=== PATIENT | male | born 1945 | race Caucasian/White ===

== ENCOUNTER 2018-06-18 10:12 | Outpatient (RCR) | payer MEDICARE, OTHER, SELFPAY | END 2018-07-12 | LOC: INF 06-25 10:12 | PROVIDERS: PCP Family Medicine; Visit Provider Internal Medicine Hematology & Oncology | DX: E83.111 Hemochromatosis due to repeated red blood cell transfusions (principal) | CPT/HCPCS: 99195 ==

== ENCOUNTER → 2018-06-25 07:35 | Outpatient (CLI) | payer MEDICARE, OTHER, SELFPAY ==
[2018-06-25 08:00] LABS: Absolute Eosinophil Count 0.01 k/cumm (0.0-0.7); Absolute Lymphocyte Count 0.88 k/cumm (1.2-3.4); Absolute Neutrophil Count 1.62 k/cumm (1.2-6.7); Eosinophils % 0.3; HCT 41.2 % (40.0-50.0); HGB 13.7 g/dL (13.5-17.5); Lymphocytes % 30.2; Mean Corp. HGB Concentration 33.3 g/dL (32.0-36.0); Mean Corpuscular Hemoglobin 33.2 pg (27.0-33.0); Mean Corpuscular Volume 99.8 fL (80-95); Mean Platelet Volume 8.9 fL (8.0-11.0); Monocytes % 13.7; Neutrophils % 55.8; RBC 4.13 m/cumm (4.50-6.00); RBC Distribution Width 15.8 % (11.8-14.1); White Blood Cell Count 2.91 k/cumm (4.4-10.8)
[2018-06-25 08:23] LABS: ALT 29 U/L (12-78); AST 20 U/L (15-37); Albumin 3.7 g/dL (3.4-5.0); Alkaline Phosphatase 99 U/L (46-116); Anion Gap 10.6 mmol/L (3-11); BUN 26 mg/dL (7-18); Bilirubin, Total 1.5 mg/dL (0.2-1.0); CO2 24.4 mmol/L (21.0-32.0); CREATININE 1.53 mg/dL (0.70-1.30); Calcium 8.1 mg/dL (8.5-10.1); Chloride 104 mmol/L (98-107); Estimated GFR 44.96 (mL/min/1.73m2); Ferritin 315 ng/mL (8-388); Glucose 101 mg/dL (70-100); Potassium 4.3 mmol/L (3.5-5.1); Sodium 139 mmol/L (136-145); Total Protein 7.3 g/dL (6.4-8.2)
[2018-06-25 08:44] LABS: Platelet Count 67 x1000/uL (130-400)
[2018-07-04 17:15] LABS: Specimen WB Whole Blood
== END ==
PROVIDERS: PCP Family Medicine; Visit Provider Internal Medicine Hematology & Oncology
DX: R74.0 Nonspecific elevation of levels of transaminase and lactic acid dehydrogenase [LDH] (principal); E83.111 Hemochromatosis due to repeated red blood cell transfusions; D61.9 Aplastic anemia, unspecified; D69.6 Thrombocytopenia, unspecified
CPT/HCPCS: 36415; 80053; 99195; 81256; 82728; 85025

== ENCOUNTER 2018-07-23 09:07 | Outpatient (CLI) | payer MEDICARE, OTHER, SELFPAY ==
[2018-07-23 10:00] LABS: Abs Immature Grans 0.01 k/cumm (0.0-0.09); Absolute Eosinophil Count 0.01 k/cumm (0.0-0.7); Absolute Lymphocyte Count 1.03 k/cumm (1.2-3.4); Absolute Monocyte Count 0.46 k/cumm (0.11-0.7); Absolute Neutrophil Count 1.83 k/cumm (1.2-6.7); Eosinophils % 0.3; HCT 41.4 % (40.0-50.0); HGB 13.7 g/dL (13.5-17.5); Immature Grans % 0.3; Lymphocytes % 30.8; Mean Corp. HGB Concentration 33.1 g/dL (32.0-36.0); Mean Corpuscular Hemoglobin 32.8 pg (27.0-33.0); Mean Platelet Volume 10.5 fL (8.0-11.0); Monocytes % 13.8; Neutrophils % 54.8; RBC 4.18 m/cumm (4.50-6.00); RBC Distribution Width 16.1 % (11.8-14.1); White Blood Cell Count 3.34 k/cumm (4.4-10.8)
[2018-07-23 10:20] LABS: Platelet Count 72 x1000/uL (130-400)
[2018-07-23 10:24] LABS: ALT 28 U/L (12-78); AST 19 U/L (15-37); Albumin 3.7 g/dL (3.4-5.0); Alkaline Phosphatase 98 U/L (46-116); Anion Gap 6.8 mmol/L (3-11); BUN 30 mg/dL (7-18); Bilirubin, Total 1.6 mg/dL (0.2-1.0); CO2 27.2 mmol/L (21.0-32.0); CREATININE 1.56 mg/dL (0.70-1.30); Chloride 103 mmol/L (98-107); Estimated GFR 43.97 (mL/min/1.73m2); Ferritin 205 ng/mL (8-388); Glucose 108 mg/dL (70-100); Potassium 4.7 mmol/L (3.5-5.1); Sodium 137 mmol/L (136-145); Total Protein 7.5 g/dL (6.4-8.2)
[2018-07-23 10:43] LABS: Calcium 8.5 mg/dL (8.5-10.1)
== END 2018-07-23 09:27 ==
PROVIDERS: PCP Family Medicine; Visit Provider Internal Medicine Hematology & Oncology
DX: D61.9 Aplastic anemia, unspecified (principal); E83.111 Hemochromatosis due to repeated red blood cell transfusions; D69.6 Thrombocytopenia, unspecified
CPT/HCPCS: 36415; 80053; 82728; 85025

== ENCOUNTER 2018-08-23 08:21 | Outpatient (CLI) | payer MEDICARE, OTHER, SELFPAY ==
[2018-08-23 08:40] LABS: Absolute Eosinophil Count 0.01 k/cumm (0.0-0.7); Absolute Lymphocyte Count 0.92 k/cumm (1.2-3.4); Absolute Monocyte Count 0.38 k/cumm (0.11-0.7); Absolute Neutrophil Count 1.64 k/cumm (1.2-6.7); Eosinophils % 0.3; HCT 40.8 % (40.0-50.0); HGB 13.7 g/dL (13.5-17.5); Lymphocytes % 31.2; Mean Corp. HGB Concentration 33.6 g/dL (32.0-36.0); Mean Corpuscular Hemoglobin 33.2 pg (27.0-33.0); Mean Corpuscular Volume 98.8 fL (80-95); Mean Platelet Volume 10.4 fL (8.0-11.0); Monocytes % 12.9; Neutrophils % 55.6; RBC 4.13 m/cumm (4.50-6.00); RBC Distribution Width 16.3 % (11.8-14.1); White Blood Cell Count 2.95 k/cumm (4.4-10.8)
[2018-08-23 08:59] LABS: Diff Comment PLT Morph Reviewed; Platelet Count 64 x1000/uL (130-400); RBC Morphology Normal
[2018-08-23 09:14] LABS: ALT 32 U/L (12-78); AST 22 U/L (15-37); Albumin 3.5 g/dL (3.4-5.0); Alkaline Phosphatase 96 U/L (46-116); Anion Gap 8.1 mmol/L (3-11); BUN 23 mg/dL (7-18); Bilirubin, Total 1.7 mg/dL (0.2-1.0); CO2 26.9 mmol/L (21.0-32.0); CREATININE 1.39 mg/dL (0.70-1.30); Calcium 8.1 mg/dL (8.5-10.1); Chloride 106 mmol/L (98-107); Estimated GFR 50.23 (mL/min/1.73m2); Ferritin 168 ng/mL (8-388); Glucose 97 mg/dL (70-100); Potassium 3.9 mmol/L (3.5-5.1); Sodium 141 mmol/L (136-145)
== END 2018-08-23 08:41 ==
PROVIDERS: PCP Family Medicine; Visit Provider Internal Medicine Hematology & Oncology
DX: D61.9 Aplastic anemia, unspecified (principal); D69.6 Thrombocytopenia, unspecified; E83.111 Hemochromatosis due to repeated red blood cell transfusions
CPT/HCPCS: 36415; 80053; 82728; 85025

== ENCOUNTER 2018-09-17 07:49 | Outpatient (CLI) | payer MEDICARE, OTHER, SELFPAY ==
[2018-09-17 08:17] LABS: Absolute Eosinophil Count 0.01 k/cumm (0.0-0.7); Absolute Lymphocyte Count 0.94 k/cumm (1.2-3.4); Absolute Monocyte Count 0.44 k/cumm (0.11-0.7); Absolute Neutrophil Count 1.53 k/cumm (1.2-6.7); Eosinophils % 0.3; HCT 44.6 % (40.0-50.0); HGB 14.6 g/dL (13.5-17.5); Lymphocytes % 32.2; Mean Corp. HGB Concentration 32.7 g/dL (32.0-36.0); Mean Corpuscular Hemoglobin 31.4 pg (27.0-33.0); Mean Corpuscular Volume 95.9 fL (80-95); Mean Platelet Volume 10.9 fL (8.0-11.0); Monocytes % 15.1; Neutrophils % 52.4; RBC 4.65 m/cumm (4.50-6.00); RBC Distribution Width 17.1 % (11.8-14.1); White Blood Cell Count 2.92 k/cumm (4.4-10.8)
[2018-09-17 08:32] LABS: Anisocytosis 1+; Basophilic Stippling Present; Diff Comment RBC Morph Reviewed; Platelet Count 60 x1000/uL (130-400); Polychromasia Present
[2018-09-17 08:36] LABS: ALT 37 U/L (12-78); AST 24 U/L (15-37); Albumin 3.8 g/dL (3.4-5.0); Alkaline Phosphatase 90 U/L (46-116); Anion Gap 6.5 mmol/L (3-11); BUN 26 mg/dL (7-18); Bilirubin, Total 1.8 mg/dL (0.2-1.0); CO2 29.5 mmol/L (21.0-32.0); CREATININE 1.52 mg/dL (0.70-1.30); Calcium 8.8 mg/dL (8.5-10.1); Chloride 103 mmol/L (98-107); Estimated GFR 45.31 (mL/min/1.73m2); Ferritin 167 ng/mL (8-388); Glucose 94 mg/dL (70-100); Potassium 4.4 mmol/L (3.5-5.1); Sodium 139 mmol/L (136-145); Total Protein 7.3 g/dL (6.4-8.2)
== END 2018-09-17 08:09 ==
PROVIDERS: PCP Family Medicine; Visit Provider Internal Medicine Hematology & Oncology
DX: D61.9 Aplastic anemia, unspecified (principal); E83.111 Hemochromatosis due to repeated red blood cell transfusions; D69.6 Thrombocytopenia, unspecified
CPT/HCPCS: 36415; 80053; 82728; 85025

== ENCOUNTER 2018-10-09 07:41 | Outpatient (CLI) | payer MEDICARE, OTHER, SELFPAY ==
[2018-10-09 08:02] LABS: Abs Immature Grans 0.01 k/cumm (0.0-0.09); Absolute Lymphocyte Count 0.97 k/cumm (1.2-3.4); Absolute Monocyte Count 0.45 k/cumm (0.11-0.7); Absolute Neutrophil Count 1.55 k/cumm (1.2-6.7); HCT 42.5 % (40.0-50.0); HGB 14.2 g/dL (13.5-17.5); Immature Grans % 0.3; Lymphocytes % 32.6; Mean Corp. HGB Concentration 33.4 g/dL (32.0-36.0); Mean Corpuscular Hemoglobin 32.3 pg (27.0-33.0); Mean Corpuscular Volume 96.6 fL (80-95); Mean Platelet Volume 9.7 fL (8.0-11.0); Monocytes % 15.1; RBC Distribution Width 17.6 % (11.8-14.1); White Blood Cell Count 2.98 k/cumm (4.4-10.8)
[2018-10-09 08:11] LABS: Platelet Count 68 x1000/uL (130-400)
[2018-10-09 08:24] LABS: Diff Comment Diff Reviewed; RBC Morphology Normal
[2018-10-09 08:31] LABS: ALT 31 U/L (12-78); AST 21 U/L (15-37); Albumin 3.7 g/dL (3.4-5.0); Alkaline Phosphatase 94 U/L (46-116); Anion Gap 8.6 mmol/L (3-11); BUN 32 mg/dL (7-18); Bilirubin, Total 1.7 mg/dL (0.2-1.0); CO2 28.4 mmol/L (21.0-32.0); CREATININE 1.51 mg/dL (0.70-1.30); Calcium 8.9 mg/dL (8.5-10.1); Chloride 104 mmol/L (98-107); Estimated GFR 45.65 (mL/min/1.73m2); Ferritin 148 ng/mL (8-388); Glucose 118 mg/dL (70-100); Potassium 4.2 mmol/L (3.5-5.1); Sodium 141 mmol/L (136-145); Total Protein 7.5 g/dL (6.4-8.2)
== END 2018-10-09 08:01 ==
PROVIDERS: PCP Family Medicine; Visit Provider Internal Medicine Hematology & Oncology
DX: D61.9 Aplastic anemia, unspecified (principal); D69.6 Thrombocytopenia, unspecified; E83.111 Hemochromatosis due to repeated red blood cell transfusions
CPT/HCPCS: 36415; 80053; 82728; 85025

== ENCOUNTER 2018-11-19 08:09 | Outpatient (CLI) | payer MEDICARE, OTHER, SELFPAY ==
[2018-11-19 08:35] LABS: Abs Immature Grans 0.01 k/cumm (0.0-0.09); Absolute Lymphocyte Count 1.02 k/cumm (1.2-3.4); Absolute Neutrophil Count 1.17 k/cumm (1.2-6.7); HCT 40.1 % (40.0-50.0); HGB 13.3 g/dL (13.5-17.5); Immature Grans % 0.4; Lymphocytes % 39.2; Mean Corp. HGB Concentration 33.2 g/dL (32.0-36.0); Mean Corpuscular Hemoglobin 32.1 pg (27.0-33.0); Mean Corpuscular Volume 96.9 fL (80-95); Mean Platelet Volume 10.4 fL (8.0-11.0); Monocytes % 15.4; RBC 4.14 m/cumm (4.50-6.00); RBC Distribution Width 18.4 % (11.8-14.1)
[2018-11-19 08:48] LABS: Anisocytosis 2+; Diff Comment Diff Reviewed
[2018-11-19 08:49] LABS: Platelet Count 80 x1000/uL (130-400)
[2018-11-19 08:52] LABS: ALT 28 U/L (12-78); AST 19 U/L (15-37); Albumin 3.6 g/dL (3.4-5.0); Alkaline Phosphatase 91 U/L (46-116); BUN 30 mg/dL (7-18); Bilirubin, Total 1.7 mg/dL (0.2-1.0); CREATININE 1.42 mg/dL (0.70-1.30); Calcium 8.5 mg/dL (8.5-10.1); Chloride 104 mmol/L (98-107); Estimated GFR 49.01 (mL/min/1.73m2); Glucose 103 mg/dL (70-100); Potassium 3.9 mmol/L (3.5-5.1); Sodium 139 mmol/L (136-145); Total Protein 7.3 g/dL (6.4-8.2)
== END 2018-11-19 08:29 ==
PROVIDERS: PCP Family Medicine; Visit Provider Internal Medicine Hematology & Oncology
DX: D61.9 Aplastic anemia, unspecified (principal); E83.111 Hemochromatosis due to repeated red blood cell transfusions; D69.6 Thrombocytopenia, unspecified
CPT/HCPCS: 36415; 80053; 85025

== ENCOUNTER 2019-01-07 13:19 | Outpatient (CLI) | payer MEDICARE, OTHER, SELFPAY ==
[2019-01-07 13:39] LABS: Abs Immature Grans 0.01 k/cumm (0.0-0.09); Absolute Eosinophil Count 0.01 k/cumm (0.0-0.7); Absolute Lymphocyte Count 0.86 k/cumm (1.2-3.4); Absolute Monocyte Count 0.23 k/cumm (0.11-0.7); Absolute Neutrophil Count 1.85 k/cumm (1.2-6.7); Eosinophils % 0.3; HCT 41.6 % (40.0-50.0); HGB 13.5 g/dL (13.5-17.5); Immature Grans % 0.3; Lymphocytes % 29.1; Mean Corp. HGB Concentration 32.5 g/dL (32.0-36.0); Mean Corpuscular Hemoglobin 31.1 pg (27.0-33.0); Mean Corpuscular Volume 95.9 fL (80-95); Mean Platelet Volume 10.4 fL (8.0-11.0); Monocytes % 7.8; Neutrophils % 62.5; Platelet Count 105 x1000/uL (130-400); RBC 4.34 m/cumm (4.50-6.00); White Blood Cell Count 2.96 k/cumm (4.4-10.8)
[2019-01-07 14:09] LABS: ALT 29 U/L (12-78); AST 24 U/L (15-37); Albumin 3.6 g/dL (3.4-5.0); Alkaline Phosphatase 109 U/L (46-116); Anion Gap 7.9 mmol/L (3-11); BUN 27 mg/dL (7-18); Bilirubin, Total 1.4 mg/dL (0.2-1.0); CO2 28.1 mmol/L (21.0-32.0); CREATININE 1.45 mg/dL (0.70-1.30); Calcium 8.6 mg/dL (8.5-10.1); Chloride 103 mmol/L (98-107); Estimated GFR 47.84 (mL/min/1.73m2); Glucose 145 mg/dL (70-100); Potassium 4.3 mmol/L (3.5-5.1); Sodium 139 mmol/L (136-145); Total Protein 7.9 g/dL (6.4-8.2)
[2019-01-07 14:32] LABS: Ferritin 157 ng/mL (8-388)
== END 2019-01-07 13:39 ==
PROVIDERS: PCP Family Medicine; Visit Provider Internal Medicine Hematology & Oncology
DX: D61.9 Aplastic anemia, unspecified (principal); D69.6 Thrombocytopenia, unspecified; E83.111 Hemochromatosis due to repeated red blood cell transfusions
CPT/HCPCS: 36415; 80053; 82728; 85025

== ENCOUNTER 2019-02-03 11:04 | Outpatient (CLI) | payer MEDICARE, OTHER, SELFPAY | END 2019-02-03 11:24 | PROVIDERS: PCP Family Medicine; Visit Provider Internal Medicine Interventional Cardiology | DX: R07.9 Chest pain, unspecified (principal); R94.39 Abnormal result of other cardiovascular function study | CPT/HCPCS: 99214; 93005; 93010 ==

== ENCOUNTER 2019-02-18 08:15 | Outpatient (CLI) | payer MEDICARE, OTHER, SELFPAY ==
[2019-02-18 08:45] LABS: Absolute Lymphocyte Count 1.01 k/cumm (1.2-3.4); Absolute Monocyte Count 0.41 k/cumm (0.11-0.7); Absolute Neutrophil Count 1.42 k/cumm (1.2-6.7); HCT 43.1 % (40.0-50.0); HGB 14.1 g/dL (13.5-17.5); Lymphocytes % 35.6; Mean Corp. HGB Concentration 32.7 g/dL (32.0-36.0); Mean Corpuscular Hemoglobin 31.3 pg (27.0-33.0); Mean Corpuscular Volume 95.6 fL (80-95); Mean Platelet Volume 10.6 fL (8.0-11.0); Monocytes % 14.4; Platelet Count 101 x1000/uL (130-400); RBC 4.51 m/cumm (4.50-6.00); RBC Distribution Width 18.9 % (11.8-14.1); White Blood Cell Count 2.84 k/cumm (4.4-10.8)
[2019-02-18 08:58] LABS: ALT 25 U/L (12-78); AST 20 U/L (15-37); Albumin 3.7 g/dL (3.4-5.0); Alkaline Phosphatase 102 U/L (46-116); Anion Gap 7.3 mmol/L (3-11); BUN 28 mg/dL (7-18); Bilirubin, Total 1.7 mg/dL (0.2-1.0); CO2 27.7 mmol/L (21.0-32.0); Calcium 8.4 mg/dL (8.5-10.1); Chloride 102 mmol/L (98-107); Glucose 104 mg/dL (70-100); Potassium 4.2 mmol/L (3.5-5.1); Sodium 137 mmol/L (136-145); Total Protein 7.5 g/dL (6.4-8.2)
== END 2019-02-18 08:35 ==
PROVIDERS: PCP Family Medicine; Visit Provider Internal Medicine Hematology & Oncology
DX: D61.9 Aplastic anemia, unspecified (principal); D69.6 Thrombocytopenia, unspecified
CPT/HCPCS: 36415; 80053; 85025

== ENCOUNTER 2019-04-08 08:48 | Outpatient (CLI) | payer MEDICARE, OTHER, SELFPAY ==
[2019-04-08 09:15] LABS: Absolute Eosinophil Count 0.01 k/cumm (0.0-0.7); Absolute Lymphocyte Count 0.81 k/cumm (1.2-3.4); Absolute Monocyte Count 0.48 k/cumm (0.11-0.7); Absolute Neutrophil Count 1.54 k/cumm (1.2-6.7); Eosinophils % 0.4; HCT 41.6 % (40.0-50.0); HGB 13.7 g/dL (13.5-17.5); Lymphocytes % 28.5; Mean Corp. HGB Concentration 32.9 g/dL (32.0-36.0); Mean Corpuscular Hemoglobin 31.6 pg (27.0-33.0); Mean Corpuscular Volume 95.9 fL (80-95); Mean Platelet Volume 10.8 fL (8.0-11.0); Monocytes % 16.9; Neutrophils % 54.2; RBC 4.34 m/cumm (4.50-6.00); RBC Distribution Width 18.7 % (11.8-14.1); White Blood Cell Count 2.84 k/cumm (4.4-10.8)
[2019-04-08 09:32] LABS: ALT 28 U/L (12-78); AST 22 U/L (15-37); Albumin 3.5 g/dL (3.4-5.0); Alkaline Phosphatase 95 U/L (46-116); Anion Gap 8.1 mmol/L (3-11); BUN 31 mg/dL (7-18); Bilirubin, Total 1.8 mg/dL (0.2-1.0); CO2 26.9 mmol/L (21.0-32.0); CREATININE 1.29 mg/dL (0.70-1.30); Calcium 8.4 mg/dL (8.5-10.1); Chloride 103 mmol/L (98-107); Estimated GFR 54.75 (mL/min/1.73m2); Glucose 90 mg/dL (70-100); Potassium 4.3 mmol/L (3.5-5.1); Sodium 138 mmol/L (136-145); Total Protein 7.2 g/dL (6.4-8.2)
[2019-04-08 09:36] LABS: Anisocytosis 2+; Basophilic Stippling Present; Diff Comment RBC Morph Reviewed; Platelet Count 83 x1000/uL (130-400)
[2019-04-08 09:37] LABS: Poikilocytes 1+; Polychromasia Present
== END 2019-04-08 09:08 ==
PROVIDERS: PCP Family Medicine; Visit Provider Internal Medicine Hematology & Oncology
DX: D61.9 Aplastic anemia, unspecified (principal); D61.89 Other specified aplastic anemias and other bone marrow failure syndromes; D69.6 Thrombocytopenia, unspecified
CPT/HCPCS: 80053; 85025

== ENCOUNTER 2019-05-12 08:39 | Outpatient (CLI) | payer MEDICARE, OTHER, SELFPAY | END 2019-05-12 08:59 | PROVIDERS: PCP Family Medicine; Visit Provider Internal Medicine Interventional Cardiology | DX: R07.9 Chest pain, unspecified (principal); D61.9 Aplastic anemia, unspecified; R94.39 Abnormal result of other cardiovascular function study | CPT/HCPCS: 99214; 93005; 93010; 99213 ==

== ENCOUNTER 2019-06-10 08:26 | Outpatient (CLI) | payer MEDICARE, OTHER, SELFPAY ==
[2019-06-10 08:42] LABS: Abs Immature Grans 0.01 k/cumm (0.0-0.09); HCT 41.5 % (40.0-50.0); HGB 13.4 g/dL (13.5-17.5); Mean Corp. HGB Concentration 32.3 g/dL (32.0-36.0); Mean Corpuscular Hemoglobin 30.2 pg (27.0-33.0); Mean Corpuscular Volume 93.5 fL (80-95); Mean Platelet Volume 11.2 fL (8.0-11.0); RBC 4.44 m/cumm (4.50-6.00); RBC Distribution Width 19.6 % (11.8-14.1); White Blood Cell Count 2.51 k/cumm (4.4-10.8)
[2019-06-10 08:59] LABS: ALT 37 U/L (12-78); AST 20 U/L (15-37); Absolute Basophil Count 0.05 k/cumm (0.0-0.2); Absolute Eosinophil Count 0.15 k/cumm (0.0-0.7); Absolute Lymphocyte Count 0.65 k/cumm (1.2-3.4); Absolute Monocyte Count 0.35 k/cumm (0.11-0.7); Absolute Neutrophil Count 1.31 k/cumm (1.2-6.7); Albumin 3.5 g/dL (3.4-5.0); Alkaline Phosphatase 86 U/L (46-116); Anion Gap 5.2 mmol/L (3-11); BUN 32 mg/dL (7-18); CO2 28.8 mmol/L (21.0-32.0); CREATININE 1.39 mg/dL (0.70-1.30); Calcium 8.6 mg/dL (8.5-10.1); Chloride 106 mmol/L (98-107); Estimated GFR 50.09 (mL/min/1.73m2); Glucose 92 mg/dL (70-100); Platelet Count 90 x1000/uL (130-400); Potassium 4.1 mmol/L (3.5-5.1); Sodium 140 mmol/L (136-145); Total Protein 7.2 g/dL (6.4-8.2)
[2019-06-10 09:00] LABS: Anisocytosis 2+; Basophilic Stippling Present; Diff Comment Manual Differential; Polychromasia Present
[2019-06-10 09:01] LABS: Bilirubin, Total 2.1 mg/dL (0.2-1.0)
== END 2019-06-10 08:46 ==
PROVIDERS: PCP Family Medicine; Visit Provider Internal Medicine Hematology & Oncology
DX: D61.89 Other specified aplastic anemias and other bone marrow failure syndromes (principal); D61.9 Aplastic anemia, unspecified; D69.6 Thrombocytopenia, unspecified
CPT/HCPCS: 36415; 80053; 85025

== ENCOUNTER 2019-07-31 07:54 | Outpatient (CLI) | payer MEDICARE, OTHER, SELFPAY ==
[2019-07-31 08:11] LABS: HCT 41.4 % (40.0-50.0); HGB 13.3 g/dL (13.5-17.5); Mean Corp. HGB Concentration 32.1 g/dL (32.0-36.0); Mean Corpuscular Hemoglobin 30.3 pg (27.0-33.0); Mean Corpuscular Volume 94.3 fL (80-95); Mean Platelet Volume 10.3 fL (8.0-11.0); RBC 4.39 m/cumm (4.50-6.00); White Blood Cell Count 2.45 k/cumm (4.4-10.8)
[2019-07-31 08:24] LABS: ALT 25 U/L (16-63); AST 22 U/L (15-37); Albumin 3.6 g/dL (3.4-5.0); Alkaline Phosphatase 87 U/L (46-116); Anion Gap 8.7 mmol/L (3-11); BUN 29 mg/dL (7-18); Bilirubin, Total 2.3 mg/dL (0.2-1.0); CO2 27.3 mmol/L (21.0-32.0); CREATININE 1.39 mg/dL (0.70-1.30); Calcium 8.4 mg/dL (8.5-10.1); Chloride 105 mmol/L (98-107); Estimated GFR 50.09 (mL/min/1.73m2); Glucose 66 mg/dL (70-100); Sodium 141 mmol/L (136-145); Total Protein 7.3 g/dL (6.4-8.2)
[2019-07-31 08:33] LABS: Absolute Monocyte Count 0.34 k/cumm (0.11-0.7); Absolute Neutrophil Count 1.05 k/cumm (1.2-6.7); Atypical Lymphocytes % 3; Platelet Count 98 x1000/uL (130-400)
[2019-07-31 08:34] LABS: Anisocytosis 2+; Diff Comment Manual Differential
== END 2019-07-31 08:14 ==
PROVIDERS: PCP Family Medicine; Visit Provider Internal Medicine Hematology & Oncology
DX: D61.9 Aplastic anemia, unspecified (principal); D69.6 Thrombocytopenia, unspecified
CPT/HCPCS: 36415; 80053; 85025

== ENCOUNTER 2019-10-07 08:46 | Outpatient (CLI) | payer MEDICARE, OTHER, SELFPAY ==
[2019-10-07 09:02] LABS: Abs Immature Grans 0.02 k/cumm (0.0-0.09); Absolute Basophil Count 0.01 k/cumm (0.0-0.2); Absolute Lymphocyte Count 0.88 k/cumm (1.2-3.4); Absolute Monocyte Count 0.59 k/cumm (0.11-0.7); Basophils % 0.5; HCT 37.2 % (40.0-50.0); HGB 12.1 g/dL (13.5-17.5); Immature Grans % 0.9; Mean Corp. HGB Concentration 32.5 g/dL (32.0-36.0); Mean Corpuscular Hemoglobin 29.8 pg (27.0-33.0); Mean Corpuscular Volume 91.6 fL (80-95); Mean Platelet Volume 11.7 fL (8.0-11.0); Monocytes % 26.8; Neutrophils % 31.8; Platelet Count 132 x1000/uL (130-400); RBC 4.06 m/cumm (4.50-6.00)
[2019-10-07 09:17] LABS: ALT 18 U/L (16-63); AST 14 U/L (15-37); Albumin 3.6 g/dL (3.4-5.0); Alkaline Phosphatase 83 U/L (46-116); Anion Gap 7.7 mmol/L (3-11); BUN 32 mg/dL (7-18); Bilirubin, Total 1.7 mg/dL (0.2-1.0); CO2 28.3 mmol/L (21.0-32.0); CREATININE 1.37 mg/dL (0.70-1.30); Calcium 8.6 mg/dL (8.5-10.1); Chloride 105 mmol/L (98-107); Estimated GFR 50.93 (mL/min/1.73m2); Glucose 98 mg/dL (74-106); Potassium 4.5 mmol/L (3.5-5.1); Sodium 141 mmol/L (136-145); Total Protein 7.2 g/dL (6.4-8.2)
[2019-10-07 09:25] LABS: Diff Comment RBC Morph Reviewed
[2019-10-07 09:26] LABS: Anisocytosis 2+; Macrocytosis 1+; Microcytosis 1+; Polychromasia Present
== END 2019-10-07 09:06 ==
PROVIDERS: PCP Family Medicine; Visit Provider Internal Medicine Hematology & Oncology
DX: D61.9 Aplastic anemia, unspecified (principal); D61.89 Other specified aplastic anemias and other bone marrow failure syndromes; D69.6 Thrombocytopenia, unspecified
CPT/HCPCS: 36415; 80053; 85025

== ENCOUNTER 2019-10-27 10:21 | Outpatient (CLI) | payer MEDICARE, OTHER, SELFPAY ==
[2019-10-27 10:48] LABS: Abs Immature Grans 0.01 k/cumm (0.0-0.09); Absolute Basophil Count 0.01 k/cumm (0.0-0.2); Absolute Lymphocyte Count 0.86 k/cumm (1.2-3.4); Absolute Monocyte Count 0.58 k/cumm (0.11-0.7); Absolute Neutrophil Count 0.64 k/cumm (1.2-6.7); Basophils % 0.5; HCT 34.8 % (40.0-50.0); HGB 11.1 g/dL (13.5-17.5); Immature Grans % 0.5; Mean Corp. HGB Concentration 31.9 g/dL (32.0-36.0); Mean Corpuscular Hemoglobin 28.5 pg (27.0-33.0); Mean Corpuscular Volume 89.5 fL (80-95); Monocytes % 27.6; Neutrophils % 30.4; Platelet Count 112 x1000/uL (130-400); RBC 3.89 m/cumm (4.50-6.00); RBC Distribution Width 23.1 % (11.8-14.1)
[2019-10-27 11:03] LABS: Anisocytosis 3+; Diff Comment Agrees w/ Instrument; Polychromasia Present
[2019-10-27 11:04] LABS: Poikilocytes 2+
[2019-10-27 12:10] LABS: ALT 18 U/L (16-63); AST 15 U/L (15-37); Albumin 3.8 g/dL (3.4-5.0); Alkaline Phosphatase 79 U/L (46-116); Anion Gap 8.3 mmol/L (3-11); BUN 34 mg/dL (7-18); Bilirubin, Total 1.9 mg/dL (0.2-1.0); CO2 26.7 mmol/L (21.0-32.0); CREATININE 1.69 mg/dL (0.70-1.30); Calcium 8.3 mg/dL (8.5-10.1); Chloride 105 mmol/L (98-107); Estimated GFR 39.98 (mL/min/1.73m2); Glucose 97 mg/dL (74-106); Potassium 4.5 mmol/L (3.5-5.1); Sodium 140 mmol/L (136-145)
== END 2019-10-27 10:41 ==
PROVIDERS: PCP Family Medicine; Visit Provider Internal Medicine Hematology & Oncology
DX: D61.89 Other specified aplastic anemias and other bone marrow failure syndromes (principal); D61.9 Aplastic anemia, unspecified; D69.6 Thrombocytopenia, unspecified
CPT/HCPCS: 36415; 80053; 85025

== ENCOUNTER 2019-10-27 13:01 | Emergency (ER) | payer MEDICARE, OTHER, SELFPAY ==
[2019-10-27] VITALS (38 sets, daily range): BP systolic 117–159; BP diastolic 57–94; PULSE 68–124; RESP 11–41; TEMP 36.6; O2SAT 98–100
--- NOTE | 2019-10-27 13:05 | DI.RAD_ITS ---
EXAM: XR PORTABLE CHEST AP INDICATION: chest pain. COMPARISON: CHEST ABD PELVIS WITH CONTRAST from 09/28/2015 TECHNIQUE: 2D digital imaging was performed. FINDINGS: The heart is mildly enlarged and the aorta is tortuous. The lungs appear clear. No infiltrate, effu blaire or pulmonary edema is seen. IMPRESSION: No acute abnormality.
--- NOTE | 2019-10-27 13:08 | ED.GENADUL_ITS ---
Discharge Plan Discharge Details Chief Complaint: Chest Pain Primary Care Provider: Lizbeth Li V ED Provider: Wendy Andujar Home Meds and New Rx's Prescriptions: No Action Promacta 75 mg tablet 150 mg PO DAILY RF: 0 Discharge Data Discharge Date/Time-TO BE ENTERED AT DEPARTURE: 10/27/19 15:00 Medical Decision Making Duke Fink is a 74-year-old man with a history of aplastic anemia who presented to the emergency department with 45 minutes of unrelenting chest pressure, exertional in nature. On exam patient is diaphoretic and appears uncomfortable. Tachycardic rate, otherwise been cardiopulmonary exam. No abdominal tenderness to palpation. No posterior calf tenderness to palpation, no lower extremity edema. Concern for ACS. Doubt PE, acute aortic process. Exam/history is not consistent with acute emergent intra-abdominal process, sepsis. EKG shows ST elevation in aVR, significant diffuse ST depression not present on prior. Plan for 324 mg aspirin, chest x-ray, screening labs, telemetry, sublingual nitroglycerin, IV fluid. Transfer center at [facility] contacted immediately upon EKG review. 13:08: Transfer center contacted, awaiting callback Patient reporting complete resolution of pain after sublingual nitroglycerin x1 and nitroglycerin drip initiated. 13:27 [facility] [place], discussed patient presentation and results (including platelets 112, hemoglobin 11.1, creatinine 1.67 history of aplastic anemia) with Dr. Jones of cardiology who request aspirin and heparin, hold lytics/additional antiplatelet agents for now 13:28 repeat EKG shows significant improvement from prior, continued mild diffuse ST depression 1:31 awaiting callback with final acceptance, checking with [employer] for flight 1:[address] 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 Patient continues to be pain-free in the emergency department. DHART present in the emergency department. Patient continues to be pain-free. Patient left emergency department with paramedics for transfer without issue. Clinical impression: Exertional chest pain, suspect NSTEMI Disposition: Transfer to [facility] Medical Records Medical records reviewed: Yes I reviewed the patient's medical records. Imaging Data Radiologic Study: Attestation: I personally reviewed and interpreted this imaging study as follows: Radiologist's impression: EXAM: XR PORTABLE CHEST AP INDICATION: chest pain. COMPARISON: CHEST ABD PELVIS WITH CONTRAST from 09/28/2015 TECHNIQUE: 2D digital imaging was performed. FINDINGS: The heart is mildly enlarged and the aorta is tortuous. The lungs appear clear. No infiltrate, effusion or pulmonary edema is seen. IMPRESSION: No acute abnormality. Lab Data Lab results reviewed: Yes I reviewed the patient's lab results. Labs: Laboratory Tests Range/Units 10/27/19 10/27/19 10/27/19 13:05 13:05 13:05 WBC (4.4-10.8) k/cumm 2.49 L RBC (4.50-6.00) m/cumm 4.12 L Hgb (13.5-17.5) g/dL 11.9 L Hct (40.0-50.0) % 36.7 L MCV (80-95) fL 89.1 MCH (27.0-33.0) pg 28.9 MCHC (32.0-36.0) g/dL 32.4 RDW (11.8-14.1) % 23.2 H Plt Count (130-400) x1000/uL 124 L MPV (8.0-11.0) fL Immature Gran % 0.8 Neutrophils % 27.3 Lymphocytes % 52.6 Monocytes % 18.9 Eosinophils % 0.0 Basophils % 0.4 Absolute Neutrophils (1.2-6.7) k/cumm 0.68 L Absolute Lymphocytes (1.2-3.4) k/cumm 1.31 Absolute Monocytes (0.11-0.7) k/cumm 0.47 Absolute Eosinophils (0.0-0.7) k/cumm 0.00 Absolute Basophils (0.0-0.2) k/cumm 0.01 Differential Comment Agrees w/ instrument RBC Morphology See below Polychromasia Present Poikilocytosis 2+ Anisocytosis 2+ Sodium (136-145) mmol/L 139 Potassium (3.5-5.1) mmol/L 3.6 Chloride (98-107) mmol/L 103 Carbon Dioxide (21.0-32.0) mmol/L 25.3 Anion Gap (3-11) mmol/L 10.7 BUN (7-18) mg/dL 34 H Creatinine (0.70-1.30) mg/dL 1.59 H Estimated GFR/1.73 m2 (mL/min/1.73m2) 42.89 Glucose (74-106) mg/dL 152 H Calcium (8.5-10.1) mg/dL 8.9 Total Bilirubin (0.2-1.0) mg/dL 2.0 H AST (15-37) U/L 17 ALT (16-63) U/L 18 Alkaline Phosphatase (46-116) U/L 89 Troponin I (<0.06) ng/Ml < 0.05 NT-Pro-B Natriuret Pep (<300) pg/mL 358 Total Protein (6.4-8.2) g/dL 8.0 Albumin (3.4-5.0) g/dL 4.0 ECG Data Attestation: I personally reviewed and interpreted this ECG (s) as follows: Interpretation: EKG 13:05 shows sinus tachycardia 112, normal axis, ST elevation in aVR, diffuse ST depression not present on prior, no STEMI EKG 1328 shows sinus rhythm at 78, normal axis, mild diffuse ST depression, [address] elevation in aVR, significant improvement from prior, no STEMI HPI General Mode of arrival: wheelchair . Date/Time Provider Initiated Documentation: 10/27/19 13:05 . Limitations to Documentation: no limitations . Information obtained by: patient, family, RN notes reviewed and old records reviewed . HPI Narrative: Duke Fink is a 74-year-old man with a history of aplastic anemia presenting to the emergency department with chest pain. Patient reports that over the past 2 years he has had intermittent exertional chest pain or shortness of breath, which he has attributed to his intermittent low hemoglobin levels secondary to aplastic anemia. Patient has seen cardiology for this, and underwent a stress test in 2018 that was negative. He has not had a cardiac catheterization. Reports that over the past few weeks he has been having increasing chest pressure that is worse with exertion but has been relieved by rest and belching. Patient reports that he developed chest pressure while walking in his house 45 minutes prior to arrival that has now resolved. He rates this pain as severe, but states he is currently pain-free. He denies any other pain, fever, vomiting, diarrhea, shortness of breath, numbness, focal weakness, rash. Patient reports that he has his labs tested regularly, and did have lab work done today. Per record review platelets were 112, hemoglobin 11.1, creatinine 1.69. Patient states that these levels are high for him, and he has had very low hemoglobin and platelets in the past with platelets as low as 2. Related Data Home Medications Medication Instructions Recorded Confirmed eltrombopag 75 mg tablet 150 mg PO DAILY tab 02/03/19 10/27/19 Allergies Allergy/AdvReac Type Severity Reaction Status Date / Time pentamidine isethionate Allergy Severe Verified 10/27/19 13:08 cefadroxil [Cefadroxil] Allergy Unknown Unverified 10/27/19 13:08 General Stated Complaint: Chest Pain SOCRATES: 2 Review of Systems Narrative: Constitutional: denies fevers Eyes: denies eye pain ENT: denies ear pain, dental pain, sore throat Cardiovascular: denies edema, reports chest pain Respiratory: denies SOB, cough GI: denies abdominal pain, vomiting, diarrhea : denies flank pain MSK: denies back pain, neck pain, arthralgias, myalgias Skin: denies rash Neuro: denies headaches, numbness, weakness [facility] Medical History Aplastic anemia (Acute) Surgical History (Updated 10/27/19 @ 13:09 by Wendy Hart) S/P hernia repair (Acute) Social History Smoking/Tobacco Use Status: Never Alcohol Intake: never Drug use: Never Do you feel safe at home: Yes Do you feel safe in your relationship?: Yes Exam Narrative Exam Narrative: Constitutional: well and [id number], diaphoretic, initially appeared comfortable when brought back to exam room, now in no distress, conversing normally HENT: head atraumatic/normocephalic/normal inspection, mucous membranes moist Eyes: conjunctiva normal, sclera normal, pupils 3mm b/l Neck: no stridor, normal ROM, trachea midline Chest: normal inspection Resp: normal work of breathing, LCTAB Cardio: Tachycardic rate, normal rhythm, no murmur appreciated GI: abdomen soft, non-tender, non-distended Back: normal inspection, no rash Skin: warm, dry, normal color, no rash Neuro: alert, not altered, grossly non-focal, normal tone Ext: no edema, no posterior calf tenderness to palpation Psych: normal mood, normal affect, normal behavior Course Vital Signs Vital signs: Vital Signs Temperature 36.6 C 10/27/19 13:02 Pulse 124 H 10/27/19 13:02 Respiratory Rate 25 H 10/27/19 13:02 Blood Pressure 133/94 H 10/27/19 13:02 Pulse Oximetry 100 10/27/19 13:02 Temperature 36.6 C 10/27/19 13:02 Temperature Source Skin 10/27/19 13:02 Pulse 124 H 10/27/19 13:02 Respiratory Rate 25 H 10/27/19 13:02 Blood Pressure 133/94 H 10/27/19 13:02 Blood Pressure Position Supine 10/27/19 13:02 Pulse Oximetry 100 10/27/19 13:02 Oxygen Delivery Method Room Air 10/27/19 13:02 Oxygen Flow Rate 0 10/27/19 13:02 Pain Level 7 10/27/19 13:02 Critical Care Time Critical Care Time Attestation: I have spent greater than 45 minutes of critical care time with this critically ill patient including administration of IV infusions, frequent reassessments, and discussions with consultants and family
[2019-10-27 13:22] LABS: Abs Immature Grans 0.02 k/cumm (0.0-0.09); Absolute Basophil Count 0.01 k/cumm (0.0-0.2); Absolute Lymphocyte Count 1.31 k/cumm (1.2-3.4); Absolute Monocyte Count 0.47 k/cumm (0.11-0.7); Absolute Neutrophil Count 0.68 k/cumm (1.2-6.7); Basophils % 0.4; HCT 36.7 % (40.0-50.0); HGB 11.9 g/dL (13.5-17.5); Immature Grans % 0.8; Lymphocytes % 52.6; Mean Corp. HGB Concentration 32.4 g/dL (32.0-36.0); Mean Corpuscular Hemoglobin 28.9 pg (27.0-33.0); Mean Corpuscular Volume 89.1 fL (80-95); Monocytes % 18.9; Neutrophils % 27.3; RBC 4.12 m/cumm (4.50-6.00); RBC Distribution Width 23.2 % (11.8-14.1); White Blood Cell Count 2.49 k/cumm (4.4-10.8)
[2019-10-27] MEDS: Aspirin 81 MG CHEW 324 MG CH (13:22)
[2019-10-27 13:40] LABS: ALT 18 U/L (16-63); AST 17 U/L (15-37); Alkaline Phosphatase 89 U/L (46-116); Anion Gap 10.7 mmol/L (3-11); BUN 34 mg/dL (7-18); CO2 25.3 mmol/L (21.0-32.0); CREATININE 1.59 mg/dL (0.70-1.30); Calcium 8.9 mg/dL (8.5-10.1); Chloride 103 mmol/L (98-107); Estimated GFR 42.89 (mL/min/1.73m2); Glucose 152 mg/dL (74-106); Potassium 3.6 mmol/L (3.5-5.1); Sodium 139 mmol/L (136-145)
[2019-10-27 13:48] LABS: NT-proBNP 358 pg/mL (<300)
[2019-10-27 13:49] LABS: Anisocytosis 2+; Diff Comment Agrees w/ Instrument; Platelet Count 124 x1000/uL (130-400); Poikilocytes 2+; Polychromasia Present
[2019-10-27 13:51] LABS: Troponin I < 0.05 ng/Ml (<0.06)
[2019-10-27] MEDS: Normal Saline 250 ML 500 ML IV (13:57)
== END 2019-10-27 15:00 ==
LOC: ER 13:44
PROVIDERS: Emergency Provider Student in an Organized Health Care Education/Training Program; PCP Family Medicine
DX: R07.9 Chest pain, unspecified (principal); D61.9 Aplastic anemia, unspecified
CPT/HCPCS: 36415; 80053; 93005; 96361; 96365; 96366; 96376; 99291; 71045; 83880; 84484; 85025; 93010

== ENCOUNTER 2019-11-17 09:18 | Outpatient (CLI) | payer MEDICARE, OTHER, SELFPAY ==
[2019-11-17 10:40] LABS: ALT 20 U/L (16-63); AST 15 U/L (15-37); Alkaline Phosphatase 97 U/L (46-116); Anion Gap 10.4 mmol/L (3-11); BUN 30 mg/dL (7-18); Bilirubin, Total 2.5 mg/dL (0.2-1.0); CO2 25.6 mmol/L (21.0-32.0); CREATININE 1.62 mg/dL (0.70-1.30); Calcium 8.4 mg/dL (8.5-10.1); Chloride 104 mmol/L (98-107); Estimated GFR 41.98 (mL/min/1.73m2); Glucose 98 mg/dL (74-106); Sodium 140 mmol/L (136-145); Total Protein 6.9 g/dL (6.4-8.2)
[2019-11-17 10:41] LABS: Potassium 4.8 mmol/L (3.5-5.1)
[2019-11-17 10:47] LABS: HCT 29.7 % (40.0-50.0); HGB 9.2 g/dL (13.5-17.5); Mean Corpuscular Hemoglobin 27.8 pg (27.0-33.0); Mean Corpuscular Volume 89.7 fL (80-95); RBC 3.31 m/cumm (4.50-6.00); RBC Distribution Width 20.9 % (11.8-14.1)
[2019-11-17 10:52] LABS: White Blood Cell Count 1.66 k/cumm (4.4-10.8)
[2019-11-17 10:54] LABS: Absolute Lymphocyte Count 0.76 k/cumm (1.2-3.4); Absolute Monocyte Count 0.32 k/cumm (0.11-0.7); Absolute Neutrophil Count 0.58 k/cumm (1.2-6.7)
[2019-11-17 10:55] LABS: Diff Comment Manual Differential
[2019-11-17 10:57] LABS: Anisocytosis 2+; Hypochromasia 1+; Platelet Count 102 x1000/uL (130-400)
[2019-11-17 10:58] LABS: Poikilocytes 2+; Polychromasia Present
== END 2019-11-17 09:38 ==
PROVIDERS: PCP Family Medicine; Visit Provider Internal Medicine Hematology & Oncology
DX: D61.89 Other specified aplastic anemias and other bone marrow failure syndromes (principal); D61.9 Aplastic anemia, unspecified; D69.6 Thrombocytopenia, unspecified
CPT/HCPCS: 80053; 86900; 86901; 85025

== ENCOUNTER 2019-11-21 15:05 | Outpatient (RCR) | payer MEDICARE, OTHER, SELFPAY | END 2019-12-12 23:59 | disposition home or self-care (01) | LOC: CR 15:05 | PROVIDERS: PCP Family Medicine; Visit Provider Family Medicine | DX: Z51.89 Encounter for other specified aftercare (principal) ==

== ENCOUNTER 2019-12-04 09:43 | Outpatient (CLI) | payer MEDICARE, OTHER, SELFPAY ==
[2019-12-04 10:13] LABS: Absolute Eosinophil Count 0.01 k/cumm (0.0-0.7); HCT 29.4 % (40.0-50.0); HGB 8.9 g/dL (13.5-17.5); Mean Corp. HGB Concentration 30.3 g/dL (32.0-36.0); Mean Corpuscular Hemoglobin 26.9 pg (27.0-33.0); Mean Corpuscular Volume 88.8 fL (80-95); RBC 3.31 m/cumm (4.50-6.00); RBC Distribution Width 21.8 % (11.8-14.1)
[2019-12-04 10:18] LABS: ALT 17 U/L (16-63); AST 13 U/L (15-37); Albumin 3.2 g/dL (3.4-5.0); Alkaline Phosphatase 92 U/L (46-116); BUN 33 mg/dL (7-18); Bilirubin, Total 2.3 mg/dL (0.2-1.0); CREATININE 1.48 mg/dL (0.70-1.30); Calcium 8.3 mg/dL (8.5-10.1); Chloride 102 mmol/L (98-107); Estimated GFR 46.59 (mL/min/1.73m2); Glucose 101 mg/dL (74-106); Potassium 4.3 mmol/L (3.5-5.1); Sodium 137 mmol/L (136-145)
[2019-12-04 11:29] LABS: White Blood Cell Count 1.15 k/cumm (4.4-10.8)
[2019-12-04 11:31] LABS: Absolute Lymphocyte Count 0.49 k/cumm (1.2-3.4); Absolute Monocyte Count 0.26 k/cumm (0.11-0.7); Absolute Neutrophil Count 0.38 k/cumm (1.2-6.7); Atypical Lymphocytes % 2
[2019-12-04 11:32] LABS: Diff Comment Manual Differential; Nucleated RBC 2 /100WBC
[2019-12-04 11:33] LABS: Anisocytosis 2+; Platelet Count 80 x1000/uL (130-400)
[2019-12-04 11:34] LABS: Basophilic Stippling Present; Polychromasia Present
[2019-12-04 11:35] LABS: Poikilocytes 2+
== END 2019-12-04 10:03 ==
PROVIDERS: PCP Family Medicine; Visit Provider Internal Medicine Hematology & Oncology
DX: D61.9 Aplastic anemia, unspecified (principal); D69.6 Thrombocytopenia, unspecified; D61.89 Other specified aplastic anemias and other bone marrow failure syndromes
CPT/HCPCS: 36415; 80053; 85025

== ENCOUNTER 2019-12-10 11:44 | Outpatient (CLI) | payer MEDICARE, OTHER, SELFPAY ==
[2019-12-10 12:33] LABS: Abs Immature Grans 0.02 k/cumm (0.0-0.09); Absolute Eosinophil Count 0.01 k/cumm (0.0-0.7); Absolute Lymphocyte Count 0.74 k/cumm (1.2-3.4); Absolute Monocyte Count 0.44 k/cumm (0.11-0.7); Eosinophils % 0.7; HCT 29.5 % (40.0-50.0); Immature Grans % 1.4 %; Lymphocytes % 51.7; Mean Corp. HGB Concentration 30.5 g/dL (32.0-36.0); Mean Corpuscular Hemoglobin 26.9 pg (27.0-33.0); Mean Corpuscular Volume 88.3 fL (80-95); Mean Platelet Volume 11.1 fL (8.0-11.0); Monocytes % 30.8; Neutrophils % 15.4; RBC 3.34 m/cumm (4.50-6.00); RBC Distribution Width 22.3 % (11.8-14.1)
[2019-12-10 13:06] LABS: White Blood Cell Count 1.43 k/cumm (4.4-10.8)
[2019-12-10 13:07] LABS: Absolute Neutrophil Count 0.22 k/cumm (1.2-6.7)
[2019-12-10 13:08] LABS: Anisocytosis 2+; Diff Comment Diff Reviewed; Platelet Count 116 x1000/uL (130-400)
[2019-12-10 13:09] LABS: Macrocytosis 1+; Microcytosis 1+; Polychromasia Present
[2019-12-10 13:11] LABS: Poikilocytes 1+
== END 2019-12-10 12:04 ==
PROVIDERS: PCP Family Medicine; Visit Provider Internal Medicine Hematology & Oncology
DX: D61.9 Aplastic anemia, unspecified (principal)
CPT/HCPCS: 85025

== ENCOUNTER 2019-12-15 09:38 | Outpatient (CLI) | payer MEDICARE, OTHER, SELFPAY ==
[2019-12-15 10:16] LABS: Abs Immature Grans 0.21 k/cumm (0.0-0.09); HCT 31.2 % (40.0-50.0); HGB 9.3 g/dL (13.5-17.5); Mean Corp. HGB Concentration 29.8 g/dL (32.0-36.0); Mean Corpuscular Hemoglobin 26.3 pg (27.0-33.0); Mean Corpuscular Volume 88.1 fL (80-95); RBC 3.54 m/cumm (4.50-6.00); RBC Distribution Width 23.4 % (11.8-14.1); White Blood Cell Count 4.89 k/cumm (4.4-10.8)
[2019-12-15 10:17] LABS: Platelet Count 140 x1000/uL (130-400)
[2019-12-15 10:28] LABS: ALT 15 U/L (16-63); AST 14 U/L (15-37); Albumin 3.3 g/dL (3.4-5.0); Alkaline Phosphatase 114 U/L (46-116); Anion Gap 9.9 mmol/L (3-11); BUN 32 mg/dL (7-18); Bilirubin, Total 2.6 mg/dL (0.2-1.0); CO2 26.1 mmol/L (21.0-32.0); CREATININE 1.78 mg/dL (0.70-1.30); Calcium 8.4 mg/dL (8.5-10.1); Chloride 102 mmol/L (98-107); Estimated GFR 37.65 (mL/min/1.73m2); Glucose 108 mg/dL (74-106); Potassium 4.2 mmol/L (3.5-5.1); Sodium 138 mmol/L (136-145); Total Protein 7.4 g/dL (6.4-8.2)
[2019-12-15 10:57] LABS: Absolute Lymphocyte Count 0.93 k/cumm (1.2-3.4); Absolute Neutrophil Count 1.66 k/cumm (1.2-6.7)
[2019-12-15 10:58] LABS: Nucleated RBC 3 /100WBC
[2019-12-15 10:59] LABS: Anisocytosis 2+; Basophilic Stippling Present; Diff Comment Diff Reviewed; Macrocytosis 1+; Microcytosis 1+; Other Cells 1; Poikilocytes 2+; Polychromasia Present
[2019-12-15 11:01] LABS: Hypochromasia 1+
[2019-12-15 11:31] LABS: Ferritin 550 ng/mL (26-388); Folate 19.9 ng/mL (8.6-20.0); Vitamin B12 966 pg/mL (193-986)
[2019-12-15 12:31] LABS: Absolute Monocyte Count 1.86 k/cumm (0.11-0.7)
== END 2019-12-15 09:58 ==
PROVIDERS: Internal Medicine Hematology & Oncology; PCP Family Medicine; Visit Provider Family Medicine
DX: D64.9 Anemia, unspecified (principal); D61.9 Aplastic anemia, unspecified; D69.6 Thrombocytopenia, unspecified
CPT/HCPCS: 36415; 80053; 82607; 82728; 82746; 85025

== ENCOUNTER 2019-12-23 09:38 | Outpatient (CLI) | payer MEDICARE, OTHER, SELFPAY ==
[2019-12-23 10:10] LABS: Absolute Monocyte Count 0.43 k/cumm (0.11-0.7); HCT 29.3 % (40.0-50.0); HGB 8.5 g/dL (13.5-17.5); Mean Corpuscular Hemoglobin 25.3 pg (27.0-33.0); Mean Corpuscular Volume 87.2 fL (80-95); RBC 3.36 m/cumm (4.50-6.00); White Blood Cell Count 3.06 k/cumm (4.4-10.8)
[2019-12-23 10:34] LABS: ALT 16 U/L (16-63); AST 7 U/L (15-37); Albumin 3.2 g/dL (3.4-5.0); Alkaline Phosphatase 103 U/L (46-116); Anion Gap 10.7 mmol/L (3-11); BUN 30 mg/dL (7-18); Bilirubin, Total 2.1 mg/dL (0.2-1.0); CO2 25.3 mmol/L (21.0-32.0); Calcium 7.7 mg/dL (8.5-10.1); Chloride 104 mmol/L (98-107); Estimated GFR 42.58 (mL/min/1.73m2); Glucose 97 mg/dL (74-106); Potassium 4.2 mmol/L (3.5-5.1); Sodium 140 mmol/L (136-145); Total Protein 7.1 g/dL (6.4-8.2)
[2019-12-23 10:36] LABS: Platelet Count 138 x1000/uL (130-400)
[2019-12-23 10:37] LABS: Absolute Basophil Count 0.03 k/cumm (0.0-0.2); Absolute Lymphocyte Count 0.67 k/cumm (1.2-3.4); Absolute Neutrophil Count 1.93 k/cumm (1.2-6.7); Anisocytosis 3+; Basophilic Stippling Present; Diff Comment Manual Differential; Nucleated RBC 6 /100WBC
[2019-12-23 10:38] LABS: Hypochromasia 2+; Macrocytosis 1+; Microcytosis 1+; Poikilocytes 2+; Polychromasia Present
== END 2019-12-23 09:58 ==
PROVIDERS: PCP Family Medicine; Visit Provider Internal Medicine Hematology & Oncology
DX: D61.9 Aplastic anemia, unspecified (principal)
CPT/HCPCS: 36415; 80053; 85025

== ENCOUNTER 2019-12-30 08:41 | Outpatient (CLI) | payer MEDICARE, OTHER, SELFPAY ==
[2019-12-30 09:43] LABS: Abs Immature Grans 0.01 k/cumm (0.0-0.09); HCT 29.2 % (40.0-50.0); HGB 8.7 g/dL (13.5-17.5); Mean Corp. HGB Concentration 29.8 g/dL (32.0-36.0); Mean Corpuscular Hemoglobin 25.6 pg (27.0-33.0); Mean Corpuscular Volume 85.9 fL (80-95); Mean Platelet Volume 10.8 fL (8.0-11.0); RBC Distribution Width 24.4 % (11.8-14.1)
[2019-12-30 10:05] LABS: ALT 15 U/L (16-63); AST 16 U/L (15-37); Albumin 3.5 g/dL (3.4-5.0); Alkaline Phosphatase 93 U/L (46-116); Anion Gap 10.6 mmol/L (3-11); BUN 33 mg/dL (7-18); Bilirubin, Total 2.4 mg/dL (0.2-1.0); CO2 25.4 mmol/L (21.0-32.0); CREATININE 1.57 mg/dL (0.70-1.30); Calcium 8.2 mg/dL (8.5-10.1); Chloride 103 mmol/L (98-107); Estimated GFR 43.52 (mL/min/1.73m2); Glucose 88 mg/dL (74-106); Potassium 4.1 mmol/L (3.5-5.1); Sodium 139 mmol/L (136-145); Total Protein 7.3 g/dL (6.4-8.2)
[2019-12-30 10:13] LABS: White Blood Cell Count 1.98 k/cumm (4.4-10.8)
[2019-12-30 10:14] LABS: Platelet Count 139 x1000/uL (130-400)
[2019-12-30 10:15] LABS: Absolute Lymphocyte Count 0.48 k/cumm (1.2-3.4); Absolute Monocyte Count 0.36 k/cumm (0.11-0.7); Absolute Neutrophil Count 1.15 k/cumm (1.2-6.7)
[2019-12-30 10:16] LABS: Anisocytosis 2+; Diff Comment Manual Differential; Nucleated RBC 1 /100WBC
[2019-12-30 10:17] LABS: Hypochromasia 2+; Polychromasia Present; Schistocytes 2+
[2019-12-30 10:18] LABS: Poikilocytes 2+
== END 2019-12-30 09:01 ==
PROVIDERS: PCP Family Medicine; Visit Provider Internal Medicine Hematology & Oncology
DX: D61.9 Aplastic anemia, unspecified (principal)
CPT/HCPCS: 36415; 80053; 86900; 86901; 85025

== ENCOUNTER 2020-01-06 02:20 | Outpatient (CLI) | payer MEDICARE, OTHER, SELFPAY ==
[2020-01-06 09:26] LABS: Abs Immature Grans 0.01 k/cumm (0.0-0.09); HGB 8.3 g/dL (13.5-17.5); Mean Corp. HGB Concentration 29.6 g/dL (32.0-36.0); Mean Corpuscular Hemoglobin 25.6 pg (27.0-33.0); Mean Corpuscular Volume 86.4 fL (80-95); Mean Platelet Volume 11.4 fL (8.0-11.0); Platelet Count 181 x1000/uL (130-400); RBC 3.24 m/cumm (4.50-6.00); RBC Distribution Width 25.6 % (11.8-14.1)
[2020-01-06 09:34] LABS: ALT 14 U/L (16-63); AST 12 U/L (15-37); Albumin 3.4 g/dL (3.4-5.0); Alkaline Phosphatase 89 U/L (46-116); Anion Gap 8.9 mmol/L (3-11); BUN 29 mg/dL (7-18); Bilirubin, Total 2.3 mg/dL (0.2-1.0); CO2 26.1 mmol/L (21.0-32.0); Chloride 105 mmol/L (98-107); Estimated GFR 45.87 (mL/min/1.73m2); Glucose 95 mg/dL (74-106); Potassium 4.1 mmol/L (3.5-5.1); Sodium 140 mmol/L (136-145)
[2020-01-06 09:54] LABS: Absolute Basophil Count 0.02 k/cumm (0.0-0.2); Absolute Lymphocyte Count 0.51 k/cumm (1.2-3.4); Absolute Monocyte Count 0.36 k/cumm (0.11-0.7); Diff Comment Manual Differential; Nucleated RBC 4 /100WBC
[2020-01-06 09:55] LABS: Anisocytosis 3+; Basophilic Stippling Present; Hypochromasia 2+; Poikilocytes 3+; Polychromasia Present
[2020-01-06 14:26] LABS: Iron 271 ug/dL (65-175); Total Iron Binding Capacity 379 ug/dL (250-450); Transferrin Sat 72 % (20-55)
[2020-01-06 15:13] LABS: LDH 209 U/L (85-227)
== END 2020-01-06 02:40 ==
PROVIDERS: PCP Family Medicine; Visit Provider Internal Medicine Hematology & Oncology
DX: D61.9 Aplastic anemia, unspecified (principal); D69.6 Thrombocytopenia, unspecified; E83.111 Hemochromatosis due to repeated red blood cell transfusions
CPT/HCPCS: 36415; 80053; 86900; 86901; 83540; 83550; 83615; 85025; 85045

== ENCOUNTER 2020-01-07 09:23 | Outpatient (CLI) | payer MEDICARE, OTHER, SELFPAY | END 2020-01-07 09:43 | PROVIDERS: PCP Family Medicine; Visit Provider Internal Medicine Cardiovascular Disease | DX: I25.10 Atherosclerotic heart disease of native coronary artery without angina pectoris (principal); Z95.1 Presence of aortocoronary bypass graft | CPT/HCPCS: 99203; 99214 ==

== ENCOUNTER 2020-01-13 08:48 | Outpatient (CLI) | payer MEDICARE, OTHER, SELFPAY ==
[2020-01-13 09:41] LABS: Absolute Lymphocyte Count 0.49 k/cumm (1.2-3.4); Absolute Monocyte Count 0.36 k/cumm (0.11-0.7); HCT 28.1 % (40.0-50.0); HGB 8.1 g/dL (13.5-17.5); Mean Corp. HGB Concentration 28.8 g/dL (32.0-36.0); Mean Corpuscular Hemoglobin 25.2 pg (27.0-33.0); Mean Corpuscular Volume 87.5 fL (80-95); Mean Platelet Volume 11.4 fL (8.0-11.0); Monocytes % 27.9; Neutrophils % 34.1; Platelet Count 174 x1000/uL (130-400); RBC 3.21 m/cumm (4.50-6.00)
[2020-01-13 09:59] LABS: ALT 15 U/L (16-63); AST 14 U/L (15-37); Albumin 3.5 g/dL (3.4-5.0); Alkaline Phosphatase 83 U/L (46-116); BUN 33 mg/dL (7-18); Bilirubin, Total 3.1 mg/dL (0.2-1.0); CREATININE 1.57 mg/dL (0.70-1.30); Calcium 7.6 mg/dL (8.5-10.1); Chloride 106 mmol/L (98-107); Estimated GFR 43.52 (mL/min/1.73m2); Glucose 97 mg/dL (74-106); Potassium 4.4 mmol/L (3.5-5.1); Sodium 141 mmol/L (136-145); Total Protein 6.9 g/dL (6.4-8.2)
[2020-01-13 10:05] LABS: White Blood Cell Count 1.29 k/cumm (4.4-10.8)
[2020-01-13 10:06] LABS: Absolute Neutrophil Count 0.44 k/cumm (1.2-6.7); Anisocytosis 3+; Diff Comment Agrees w/ Instrument; Hypochromasia 2+; Macrocytosis 1+; Microcytosis 1+; Nucleated RBC 4 /100WBC
[2020-01-13 10:07] LABS: Poikilocytes 2+; Polychromasia Present; Spherocytes 1+
[2020-01-15 11:59] LABS: Leukemia/Lymphoma by FC (Blood See Comments
== END 2020-01-13 09:08 ==
PROVIDERS: PCP Family Medicine; Visit Provider Internal Medicine Hematology & Oncology
DX: D61.89 Other specified aplastic anemias and other bone marrow failure syndromes (principal)
CPT/HCPCS: 36415; 80053; 86850; 86900; 86901; 88185; 85025; 88184; 88189

== ENCOUNTER 2020-01-20 01:44 | Outpatient (CLI) | payer MEDICARE, OTHER, SELFPAY ==
[2020-01-20 09:25] LABS: Abs Immature Grans 0.03 k/cumm (0.0-0.09); Absolute Basophil Count 0.01 k/cumm (0.0-0.2); Absolute Eosinophil Count 0.01 k/cumm (0.0-0.7); Absolute Lymphocyte Count 0.97 k/cumm (1.2-3.4); Absolute Monocyte Count 1.54 k/cumm (0.11-0.7); Absolute Neutrophil Count 2.16 k/cumm (1.2-6.7); Basophils % 0.2; Eosinophils % 0.2; HCT 29.3 % (40.0-50.0); HGB 8.5 g/dL (13.5-17.5); Immature Grans % 0.6 %; Lymphocytes % 20.6; Mean Corpuscular Hemoglobin 25.7 pg (27.0-33.0); Mean Corpuscular Volume 88.5 fL (80-95); Monocytes % 32.6; Neutrophils % 45.8; RBC 3.31 m/cumm (4.50-6.00); White Blood Cell Count 4.72 k/cumm (4.4-10.8)
[2020-01-20 09:55] LABS: ALT 15 U/L (16-63); AST 14 U/L (15-37); Albumin 3.3 g/dL (3.4-5.0); Alkaline Phosphatase 92 U/L (46-116); Anion Gap 9.2 mmol/L (3-11); BUN 29 mg/dL (7-18); Bilirubin, Total 2.1 mg/dL (0.2-1.0); CO2 26.8 mmol/L (21.0-32.0); CREATININE 1.88 mg/dL (0.70-1.30); Calcium 7.9 mg/dL (8.5-10.1); Chloride 105 mmol/L (98-107); Estimated GFR 35.35 (mL/min/1.73m2); Glucose 103 mg/dL (74-106); Potassium 4.1 mmol/L (3.5-5.1); Sodium 141 mmol/L (136-145); Total Protein 6.5 g/dL (6.4-8.2)
[2020-01-20 09:56] LABS: Diff Comment Agrees w/ Instrument; Nucleated RBC 4 /100WBC
[2020-01-20 09:59] LABS: Anisocytosis 3+; Hypochromasia 2+; Macrocytosis 1+; Microcytosis 1+; Polychromasia Present; Schistocytes 1+
[2020-01-20 10:00] LABS: Poikilocytes 3+
[2020-01-20 10:01] LABS: Platelet Count 267 x1000/uL (130-400)
== END 2020-01-20 02:04 ==
PROVIDERS: PCP Family Medicine; Visit Provider Internal Medicine Hematology & Oncology
DX: D61.9 Aplastic anemia, unspecified (principal)
CPT/HCPCS: 36415; 80053; 86900; 86901; 85025

== ENCOUNTER 2020-01-27 02:15 | Outpatient (CLI) | payer MEDICARE, OTHER, SELFPAY ==
[2020-01-27 09:02] LABS: Abs Immature Grans 0.03 k/cumm (0.0-0.09); Absolute Eosinophil Count 0.01 k/cumm (0.0-0.7); Absolute Lymphocyte Count 0.78 k/cumm (1.2-3.4); Absolute Monocyte Count 0.39 k/cumm (0.11-0.7); Absolute Neutrophil Count 2.27 k/cumm (1.2-6.7); Eosinophils % 0.3; HCT 31.8 % (40.0-50.0); HGB 9.1 g/dL (13.5-17.5); Immature Grans % 0.9 %; Lymphocytes % 22.4; Mean Corp. HGB Concentration 28.6 g/dL (32.0-36.0); Mean Corpuscular Hemoglobin 25.3 pg (27.0-33.0); Mean Corpuscular Volume 88.3 fL (80-95); Monocytes % 11.2; Neutrophils % 65.2; RBC Distribution Width 29.3 % (11.8-14.1); White Blood Cell Count 3.48 k/cumm (4.4-10.8)
[2020-01-27 09:17] LABS: ALT 16 U/L (16-63); AST 14 U/L (15-37); Albumin 3.6 g/dL (3.4-5.0); Alkaline Phosphatase 88 U/L (46-116); Anion Gap 8.4 mmol/L (3-11); BUN 28 mg/dL (7-18); Bilirubin, Total 2.3 mg/dL (0.2-1.0); CO2 26.6 mmol/L (21.0-32.0); CREATININE 1.51 mg/dL (0.70-1.30); Chloride 106 mmol/L (98-107); Estimated GFR 45.52 (mL/min/1.73m2); Glucose 105 mg/dL (74-106); Potassium 4.4 mmol/L (3.5-5.1); Sodium 141 mmol/L (136-145); Total Protein 7.2 g/dL (6.4-8.2)
[2020-01-27 09:31] LABS: Diff Comment RBC Morph Reviewed
[2020-01-27 09:32] LABS: Anisocytosis 3+; Basophilic Stippling Present; Hypochromasia 1+; Macrocytosis 1+; Microcytosis 1+; Polychromasia Present
[2020-01-27 09:33] LABS: Platelet Count 251 x1000/uL (130-400); Poikilocytes 2+
== END 2020-01-27 02:35 ==
LOC: LBN 02:15 → LBO 01-28 08:01
PROVIDERS: PCP Family Medicine; Visit Provider Internal Medicine Hematology & Oncology
DX: D61.9 Aplastic anemia, unspecified (principal)
CPT/HCPCS: 36415; 80053; 86850; 86900; 86901; 85025

== ENCOUNTER 2020-02-03 02:49 | Outpatient (CLI) | payer MEDICARE, OTHER, SELFPAY ==
[2020-02-03 08:54] LABS: Abs Immature Grans 0.01 k/cumm (0.0-0.09); Absolute Lymphocyte Count 0.48 k/cumm (1.2-3.4); Absolute Monocyte Count 0.38 k/cumm (0.11-0.7); Absolute Neutrophil Count 0.95 k/cumm (1.2-6.7); HCT 30.6 % (40.0-50.0); Immature Grans % 0.5 %; Lymphocytes % 26.4; Mean Corp. HGB Concentration 29.4 g/dL (32.0-36.0); Mean Corpuscular Hemoglobin 25.6 pg (27.0-33.0); Mean Corpuscular Volume 87.2 fL (80-95); Monocytes % 20.9; Neutrophils % 52.2; RBC 3.51 m/cumm (4.50-6.00); RBC Distribution Width 28.7 % (11.8-14.1)
[2020-02-03 09:08] LABS: Platelet Count 181 x1000/uL (130-400); White Blood Cell Count 1.82 k/cumm (4.4-10.8)
[2020-02-03 09:09] LABS: Anisocytosis 3+; Diff Comment Diff Reviewed; Hypochromasia 2+; Poikilocytes 2+; Polychromasia Present
[2020-02-03 09:10] LABS: AST 14 U/L (15-37); Albumin 3.6 g/dL (3.4-5.0); Alkaline Phosphatase 80 U/L (46-116); Anion Gap 8.7 mmol/L (3-11); BUN 29 mg/dL (7-18); Bilirubin, Total 2.4 mg/dL (0.2-1.0); CO2 25.3 mmol/L (21.0-32.0); CREATININE 1.52 mg/dL (0.70-1.30); Calcium 8.3 mg/dL (8.5-10.1); Chloride 106 mmol/L (98-107); Estimated GFR 45.18 (mL/min/1.73m2); Glucose 102 mg/dL (74-106); Macrocytosis 1+; Microcytosis 1+; Potassium 4.1 mmol/L (3.5-5.1); Sodium 140 mmol/L (136-145)
[2020-02-03 09:13] LABS: ALT 19 U/L (16-63)
== END 2020-02-03 03:09 ==
PROVIDERS: PCP Family Medicine; Visit Provider Internal Medicine Hematology & Oncology
DX: D61.9 Aplastic anemia, unspecified (principal)
CPT/HCPCS: 36415; 80053; 86900; 86901; 85025

== ENCOUNTER → 2020-02-16 11:00 | Outpatient (BNVA) | payer MEDICARE, OTHER, SELFPAY | PROVIDERS: PCP Family Medicine; Referring Provider Family Medicine; Visit Provider Internal Medicine Cardiovascular Disease | DX: Z95.1 Presence of aortocoronary bypass graft (principal); I25.10 Atherosclerotic heart disease of native coronary artery without angina pectoris; D61.9 Aplastic anemia, unspecified | CPT/HCPCS: 99204; 99443 ==

== ENCOUNTER → 2020-02-17 11:00 | Outpatient (BNVA) | payer MEDICARE, OTHER, SELFPAY | PROVIDERS: PCP Family Medicine; Referring Provider Family Medicine; Visit Provider Internal Medicine Cardiovascular Disease | DX: R69 Illness, unspecified (principal) | CPT/HCPCS: 99204 ==

== ENCOUNTER 2020-03-30 03:14 | Outpatient (CLI) | payer MEDICARE, OTHER, SELFPAY ==
[2020-03-30 10:25] LABS: HCT 31.4 % (40.0-50.0); HGB 9.4 g/dL (13.5-17.5); Mean Corp. HGB Concentration 29.9 g/dL (32.0-36.0); Mean Corpuscular Hemoglobin 25.1 pg (27.0-33.0); Platelet Count 185 x1000/uL (130-400); RBC 3.74 m/cumm (4.50-6.00); RBC Distribution Width 29.5 % (11.8-14.1)
[2020-03-30 10:34] LABS: ALT 34 U/L (16-63); AST 18 U/L (15-37); Albumin 3.7 g/dL (3.4-5.0); Alkaline Phosphatase 84 U/L (46-116); Anion Gap 6.5 mmol/L (3-11); BUN 33 mg/dL (7-18); Bilirubin, Total 2.1 mg/dL (0.2-1.0); CO2 26.5 mmol/L (21.0-32.0); CREATININE 1.57 mg/dL (0.70-1.30); Calcium 8.1 mg/dL (8.5-10.1); Chloride 103 mmol/L (98-107); Estimated GFR 43.52 (mL/min/1.73m2); Glucose 80 mg/dL (74-106); Potassium 4.4 mmol/L (3.5-5.1); Sodium 136 mmol/L (136-145); Total Protein 6.9 g/dL (6.4-8.2)
[2020-03-30 11:14] LABS: Diff Comment Manual Differential
[2020-03-30 11:15] LABS: Anisocytosis 2+; Hypochromasia 1+; Polychromasia Present
[2020-03-30 11:16] LABS: Absolute Eosinophil Count 0.02 k/cumm (0.0-0.7); Absolute Lymphocyte Count 0.68 k/cumm (1.2-3.4); Absolute Monocyte Count 0.45 k/cumm (0.11-0.7); Poikilocytes 2+
[2020-03-30 11:18] LABS: White Blood Cell Count 1.51 k/cumm (4.4-10.8)
[2020-03-30 11:19] LABS: Absolute Neutrophil Count 0.36 k/cumm (1.2-6.7)
== END 2020-03-30 03:34 ==
PROVIDERS: PCP Family Medicine; Visit Provider Internal Medicine Hematology & Oncology
DX: D61.9 Aplastic anemia, unspecified (principal)
CPT/HCPCS: 36415; 80053; 85025

== ENCOUNTER 2020-04-27 01:38 | Outpatient (CLI) | payer MEDICARE, OTHER, SELFPAY ==
[2020-04-27 11:04] LABS: Abs Immature Grans 0.01 k/cumm (0.0-0.09); Absolute Eosinophil Count 0.01 k/cumm (0.0-0.7); Absolute Lymphocyte Count 0.68 k/cumm (1.2-3.4); Absolute Monocyte Count 0.47 k/cumm (0.11-0.7); Eosinophils % 0.6; HCT 31.5 % (40.0-50.0); HGB 9.5 g/dL (13.5-17.5); Immature Grans % 0.6 %; Lymphocytes % 41.2; Mean Corp. HGB Concentration 30.2 g/dL (32.0-36.0); Mean Corpuscular Hemoglobin 24.6 pg (27.0-33.0); Mean Corpuscular Volume 81.6 fL (80-95); Monocytes % 28.5; Neutrophils % 29.1; RBC 3.86 m/cumm (4.50-6.00); RBC Distribution Width 29.4 % (11.8-14.1)
[2020-04-27 11:35] LABS: ALT 21 U/L (16-63); AST 16 U/L (15-37); Albumin 3.8 g/dL (3.4-5.0); Alkaline Phosphatase 86 U/L (46-116); Anion Gap 7.9 mmol/L (3-11); BUN 35 mg/dL (7-18); Bilirubin, Total 2.4 mg/dL (0.2-1.0); CO2 27.1 mmol/L (21.0-32.0); Calcium 8.1 mg/dL (8.5-10.1); Chloride 103 mmol/L (98-107); Estimated GFR 34.92 (mL/min/1.73m2); Glucose 93 mg/dL (74-106); Potassium 4.6 mmol/L (3.5-5.1); Sodium 138 mmol/L (136-145); Total Protein 6.9 g/dL (6.4-8.2)
[2020-04-27 12:02] LABS: Absolute Neutrophil Count 0.48 k/cumm (1.2-6.7); White Blood Cell Count 1.65 k/cumm (4.4-10.8)
[2020-04-27 12:03] LABS: Anisocytosis 3+; Diff Comment Agrees w/ Instrument; Platelet Count 186 x1000/uL (130-400)
[2020-04-27 12:04] LABS: Basophilic Stippling Present; Hypochromasia 2+; Microcytosis 2+; Poikilocytes 3+; Polychromasia Present
== END 2020-04-27 01:58 ==
PROVIDERS: PCP Family Medicine; Visit Provider Internal Medicine Hematology & Oncology
DX: D61.9 Aplastic anemia, unspecified (principal)
CPT/HCPCS: 36415; 80053; 85025

== ENCOUNTER 2020-05-05 07:58 | Emergency (ER) | payer MEDICARE, OTHER, SELFPAY ==
[2020-05-05] VITALS (58 sets, daily range): BP systolic 142–168; BP diastolic 64–83; PULSE 79–105; RESP 16–25; TEMP 36.6–37.4; O2SAT 97–99
[2020-05-05 08:39] LABS: Abs Immature Grans 0.08 k/cumm (0.0-0.09); HCT 32.8 % (40.0-50.0); HGB 10.1 g/dL (13.5-17.5); Mean Corp. HGB Concentration 30.8 g/dL (32.0-36.0); Mean Corpuscular Hemoglobin 24.5 pg (27.0-33.0); Mean Corpuscular Volume 79.6 fL (80-95); Platelet Count 265 x1000/uL (130-400); RBC 4.12 m/cumm (4.50-6.00); RBC Distribution Width 29.4 % (11.8-14.1); White Blood Cell Count 7.97 k/cumm (4.4-10.8)
--- NOTE | 2020-05-05 08:46 | W.ED.GENAD ---
Discharge Plan Disposition Patient Disposition: HOME Condition: Stable Discharge Details Chief Complaint: GenMedical Clinical Impression: Medication adverse effect, Acute dehydration Primary Care Provider: Lizbeth Li V ED Provider: Josefina Westfall Home Meds and New Rx's Prescriptions: New prochlorperazine maleate [Compazine] 10 mg tablet 10 mg PO TID PRNQty: 10 RF: 0 dicyclomine 20 mg tablet 20 mg PO QID Qty: 20 RF: 0 No Action Promacta 75 mg tablet 150 mg PO DAILY RF: 0 Discharge Instructions Instructions: Dehydration (ED) Additional Instructions: Drink plenty of fluids. Rest activities as tolerated. Use medications as prescribed for symptomatic relief. Prochlorperazine is for relief of your nausea you may take this 3 times daily. Dicyclomine is for abdominal spasm and cramping. Please use Tylenol in addition to these medications if needed. Follow-up with your primary care doctor promptly for reevaluation. Return for any worsening, concerns or alarming symptoms sooner if needed Discharge Data Discharge Date/Time-TO BE ENTERED AT DEPARTURE: 05/05/20 18:25 Medical Decision Making <OVIDIO Moralez - Last Filed: 05/07/20 15:40> 74-year-old patient presented to the emergency room after receiving his udenyca one week ago which he receives for neutropenia due to a history of aplastic anemia. Patient reports he has received this injection several times. Patient reports typically after receiving the injection he does experience a constellation of symptoms including headache, bone pain and upper abdominal discomfort. Patient reports he is experiencing similar presentation of his typical constellation of symptoms after receiving his injection however his symptoms are noted to be worse than typical. Please see HPI for the remainder of patient's details. Physical exam patient is in no apparent distress. Currently complaining of mild nausea. Patient has no increase in respiratory effort, clear breath sounds throughout. No obvious murmur noted on cardiac exam. No hypoxia. Patient does describe abdominal discomfort does have notable upper abdominal discomfort with palpation bilaterally. Mild left lower quadrant discomfort with palpation. No obvious peritoneal signs, rebound or guarding. No CVA tenderness noted bilaterally. patient does appear somewhat dehydrated. Vital signs reviewed. After initial evaluation plan to obtain labs as well as CT of patient's abdomen and pelvis and reach out to patient's heme-onc doctor regarding the use of his medication and if presentation today is likely secondary to his medication administration. Spoke with Aylin nurse practitioner at [facility] covering for Yuegloria Almanza, discussed patient's udenyca dosing. She does report that Duke is quite a stoic gentleman in general and reports that she does not expect the symptoms after her dosing. She does recommend a broad evaluation including imaging for concern of stone. Agrees with plan to obtain labs. She feels likely the Udenyca is unrelated to patient's symptoms. She does recommend if related to Udenyca we typically recommend Tylenol and Claritin for symptomatic relief. FINDINGS: CT examination of the abdomen and pelvis was performed with a bolus infusion of 100 cc of Omnipaque 350. Images through the lung bases show nonspecific patchy radiodensities of the left lung base, acute versus chronic. Please correlate regarding the possibility of pulmonary infectious process. There is mild to moderate cardiomegaly. There are coronary calcifications. There is mild hepatic steatosis. No focal hepatic or splenic lesion identified. Pancreas is unremarkable in appearance. Gallbladder and bile ducts are CT normal. Abdominal aorta is of normal diameter and major visceral branches appear intact. No significant abdominal wall hernia. Prior apparent left inguinal herniorrhaphy with plug in place. No significant abdominal or pelvic adenopathy. There are large bilateral renal cysts. There are nonobstructing left renal calculi. No ureteral calcification seen. No hydronephrosis. Urinary bladder is grossly unremarkable. Prostate is enlarged. Appendix is normal. No evidence of diverticulitis. Question mild wall thickening of the terminal ileum, this is a nonspecific finding but could be associated with Crohn's disease. There is mild wall thickening of portions of the descending colon which could be associated with colitis period. No free intraperitoneal air or free intraperitoneal fluid. IMPRESSION: Left lower lobe patchy pulmonary infiltrates, acute versus chronic, please correlate clinically. Nonobstructing left renal calculi. Large bilateral renal cysts, noted on prior studies. Wall thickening of the terminal ileum, this may represent inflammatory process. Question mild wall thickening of descending colon as well, colitis should also be considered. Clinically patient has no evidence of pneumonia at this time. Patient has no cough, no fever. No respiratory difficulty at this time. Spoke with Aylin Donato NP again regarding patient's care, we discussed patient's symptoms, labs and results. Recommend follow-up with PCP Repeat troponin unremarkable, repeat EKG reveals a heart rate of 92. No ST segment elevation LA. EKG compared to 10/27/2019 reveals no significant change, nonspecific ST depressions noted at that time. Lactate of 2.4 improved after a second liter of IV fluid. Patient does continue to have abdominal discomfort which is described as well as persistent nausea despite initial dose of Zofran. Reviewed that in this case patient provided Compazine, IV Tylenol, Bentyl to better control patient's symptoms. Patient does report significant improvement in his pain, resting comfortably at the bedside. Patient does feel significantly improved at this time. I did request that Dr. Taylor Rocha also evaluate this patient at the bedside. We discussed CT findings, labs, use of his medication. She did evaluate the patient and agrees with plan of care. Discussed admission versus discharge home. Patient is a strong feeling that he would like to be discharged home at this time. Will provide patient prescription for Compazine as well as Bentyl for home. Patient agreeable to this plan of care. We did discuss at length the left lower lobe patchy pulmonary infiltrate which is described as acute versus chronic on his CT. Patient has no cough, has no shortness of breath, does not feel he likely has pneumonia at this time. We discussed antibiotic treatment versus close follow-up with primary care doctor. Given lack of clinical symptoms consistent with pneumonia patient's preference is to follow-up with PCP and return for any worsening or concerns if needed. Discuss signs of dehydration. Again patient does feel this is likely secondary to his Udenyca as symptomatically he is experienced similar symptoms after his injections and this is again similar just worse also patient had been in the sun and given the recent hot weather patient was feeling dehydrated. It is certainly possible that patient had experienced his typical symptoms which were confounded by dehydration due to the heat in the weather. Patient symptoms improved at this time. Patient noted to have heart rate of 105 but had received Bentyl prior to discharge which likely is contributing to his mild heart rate elevation. Recommended prompt follow-up with PCP. The patient was stable and requested discharge. Prior to discharge, my usual and customary return precautions were reviewed with the patient - this included follow-up instructions and reasons to return to the Emergency Department if conditions worsens, does not improve as expected, or other new concerns arise. <Tre Pham DO - Last Filed: 05/06/20 09:00> Did receive a call from [facility] on 05/06/2020 that the prescription that were provided to the patient were not signed. Upon review of the patient's records does appear that they were prescribed, unfortunately due to perhaps a business of the day e-signature was not written. I did confirm via the chart that these prescriptions were meant to be prescribed, and did convey this information to the pharmacist. HPI <OVIDIO Moralez - Last Filed: 05/07/20 15:40> General Date/Time Provider Initiated Documentation: 05/05/20 08:19. HPI Narrative: Is a 74-year-old patient presenting to the emergency room for complaints of headache, nausea, vomiting as well as weakness and fatigue. Patient is complaining of upper abdominal discomfort which seemingly began 2 days ago in the right flank radiated toward the back and now he is experiencing mid back pain as well as upper abdominal pain bilaterally. Patient describes a lower abdominal pressure but no obvious lower abdominal discomfort. Patient reports due to his nausea and vomiting he has minimized his fluid intake in the last few days. Patient does describe a lesser amount of urinary output but denies any dysuria, urgency or frequency of urination. Denies any hematuria. Denies any change in bowel movements. Patient reports he did receive his neutropenia Udenyca injection 1 week ago. Patient does report typically for about a week to a week and a half he is does experience headaches, bone pain and upper abdominal discomfort which was his baseline for the initial 5 days after receiving his injection however in the last 2 days he has had worsening of his headache, now experiencing nausea and vomiting, persistent weakness and fatigue and increase in a upper abdominal discomfort which is worse than his typical. Patient describes a baseline 6 out of 10 upper abdominal pain which escalates to approximately 8 out of 10 episodically lasting 30 to 45 seconds. Patient denies any full resolution of his abdominal pain. Patient concerned with possible medication reaction. Patient denies any itching, rash, perioral tongue or throat swelling or tingling. Related Data Home Medications Medication Instructions Recorded Confirmed eltrombopag 75 mg tablet 150 mg PO DAILY tab 02/03/19 05/06/20 dicyclomine 20 mg PO QID #20 tab 05/05/20 05/06/20 prochlorperazine maleate 10 mg PO TID PRN #10 tab 05/05/20 05/06/20 [Compazine] Previous Rx's Medication Instructions Recorded dicyclomine 20 mg PO QID #20 tab 05/05/20 prochlorperazine maleate 10 mg PO TID PRN #10 tab 05/05/20 [Compazine] Allergies Allergy/AdvReac Type Severity Reaction Status Date / Time cefadroxil [Cefadroxil] Allergy Intermediate Skin Rash Verified 05/06/20 17:11 pentamidine isethionate Allergy Mild Skin Rash Verified 05/06/20 17:11 General Stated Complaint: GenMedical SOCRATES: 3 Review of Systems <OVIDIO Moralez - Last Filed: 05/07/20 15:40> All systems reviewed & are unremarkable except as noted in HPI and below PFSH <OVIDIO Moralez - Last Filed: 05/07/20 15:40> Medical History Aplastic anemia (Acute) NSTEMI (non-ST elevated myocardial infarction) (Acute) Social History Smoking/Tobacco Use Status: Never Alcohol Intake: never Drug use: Never Substance use type: does not use What type of physical activity do you participate in: none Do you feel safe at home: Yes Do you feel safe in your relationship?: Yes Exam <OVIDIO Moralez - Last Filed: 05/07/20 15:40> Narrative Exam Narrative: CONST: Healthy appearing patient, in no acute distress. Well hydrated. Alert and oriented. HENMT: Head nomocephalic, normal to inspection. Atraumatic. Hearing grossly normal. External ear canal no erythema or swelling. TM normal bilaterally. Nose normal to inspection. No rhinnorhea. Normal facial exam. Oral mucosa normal. Tounge normal. Dentition normal. Normal posterior oropharynx. Uvula midline. EYES: General normal appearance. Alignment normal. Eyelids normal. Conjunctiva normal. Sclera normal. PERRL. NECK: Normal visual inspection. FROM. No lymphadenopathy. Trachea midline. No Midline tenderness. CHEST: Normal insepection of the chest. RESP: Normal respiratory effort. Speaking full sentences. No cough. No wheezing. No retractions. Clear to auscaltation. Breath sound equal and present bilaterally. CARDIO: No JVD. Normal PMI. Regular Rate. Regular Rhythm. Normal peripheral pulses. GI: Normal inspection of abdomen. No distension. Soft. Nontender. Bowel sounds present in all 4 quadrants. No rebound. No gaurding. MUSCULOSKELETAL: Normal Gait. FROM of all extremities. Distal neurovascularly intact. Sensation intact distally. SKIN: Normal. Dry. No rashes. NEURO: Alert and awake. Speech clear. PSYCH: Normal affect. Cooperative. Course <OVIDIO Moralez - Last Filed: 05/07/20 15:40> Vital Signs Vital signs: Vital Signs Temperature 36.8 C 05/05/20 08:08 Pulse 95 H 05/05/20 08:08 Respiratory Rate 16 05/05/20 08:08 Blood Pressure 168/80 H 05/05/20 08:08 Pulse Oximetry 97 05/05/20 08:08 Temperature 36.8 C 05/05/20 08:08 Temperature Source Tympanic 05/05/20 08:08 Pulse 95 H 05/05/20 08:08 Respiratory Rate 16 05/05/20 08:25 Respiratory Effort Non-Labored 05/05/20 08:25 Respiratory Depth Normal 05/05/20 08:25 Respiratory Pattern Normal 05/05/20 08:25 Blood Pressure 168/80 H 05/05/20 08:08 Blood Pressure Position Sitting 05/05/20 08:08 Pulse Oximetry 97 05/05/20 08:08 Oxygen Delivery Method Room Air 05/05/20 08:08 Oxygen Flow Rate 0 05/05/20 08:08 Pain Level 7 05/05/20 08:08
[2020-05-05 08:55] LABS: ALT 20 U/L (16-63); AST 15 U/L (15-37); Alkaline Phosphatase 100 U/L (46-116); Anion Gap 10.4 mmol/L (3-11); BUN 20 mg/dL (7-18); Bilirubin, Total 1.9 mg/dL (0.2-1.0); CO2 25.6 mmol/L (21.0-32.0); Calcium 8.7 mg/dL (8.5-10.1); Chloride 100 mmol/L (98-107); Estimated GFR 42.58 (mL/min/1.73m2); Glucose 145 mg/dL (74-106); Potassium 3.8 mmol/L (3.5-5.1); Sodium 136 mmol/L (136-145); Total Protein 7.4 g/dL (6.4-8.2)
[2020-05-05 09:09] LABS: Absolute Lymphocyte Count 0.48 k/cumm (1.2-3.4); Absolute Monocyte Count 2.31 k/cumm (0.11-0.7)
[2020-05-05 09:11] LABS: Anisocytosis 2+; Diff Comment Manual Differential
[2020-05-05 09:12] LABS: Hypochromasia 2+; Macrocytosis 1+; Microcytosis 2+; Polychromasia Present
[2020-05-05 09:13] LABS: Poikilocytes 3+
[2020-05-05 09:17] LABS: Lactate 2.3 mmol/L (0.6-1.4)
[2020-05-05 09:22] LABS: Lipase 57 U/L (73-393)
[2020-05-05] MEDS: Normal Saline 500 ML IV (09:43)
[2020-05-05 10:49] LABS: Troponin I < 0.05 ng/mL (<0.06)
[2020-05-05] MEDS: Ondansetron 4 MG/2 ML VIAL IVP (11:21)
[2020-05-05 11:45] LABS: Nucleated RBC 2 /100WBC
[2020-05-05 11:52] LABS: Lactate 2.4 mmol/L (0.6-1.4)
[2020-05-05 12:11] LABS: Troponin I < 0.05 ng/mL (<0.06)
--- NOTE | 2020-05-05 12:15 | DI.CT_ITS ---
EXAM: CT ABDOMEN PELVIS W CLINICAL HISTORY: pain abd, right flank and back. TECHNIQUE: COMPARISON: CT CHEST ABD PELVIS WITH CONTRAST from 09/28/2015 FINDINGS: CT examination of the abdomen and pelvis was performed with a bolus infusion of 100 cc of Omnipaque 3 50. Images through the lung bases show nonspecific patchy radiodensities of the left lung base, acute nahun aurea chronic. Please correlate regarding the possibility of pulmonary infectious process. There is mild to moderate cardiomegaly. There are coronary calcifications. There is mild hepatic steatosis. No focal hepatic or splenic lesion identified. Pancreas is unremar kable in appearance. Gallbladder and bile ducts are CT normal. Abdominal aorta is of normal diameter and major visceral branches appear intact. No significant abdominal wall hernia. Prior apparent left inguinal herniorrhaphy with plug in place. No significant abdominal or pelvic adenopathy. There are large bilateral renal cysts. There are nonobstructing left renal calculi. No ureteral jian cification seen. No hydronephrosis. Urinary bladder is grossly unremarkable. Prostate is enlarged. Appendix is normal. No evidence of diverticulitis. Question mild wall thickening of the terminal il eum, this is a nonspecific finding but could be associated with Crohn's disease. There is mild wall thickening of portions of the descending colon which could be associated with colitis period. No wendy e intraperitoneal air or free intraperitoneal fluid. IMPRESSION: Left lower lobe patchy pulmonary infiltrates, acute versus chronic, please correlate clinically. Nonobstructing left renal calculi. Large bilateral renal cysts, noted on prior studies. Wall thickening of the terminal ileum, this may represent inflammatory process. Question mild wall t hickening of descending colon as well, colitis should also be considered.
[2020-05-05] MEDS: Omnipaque 350 MG/ML 100 ML BTL IJ (12:48)
[2020-05-05] MEDS: Normal Saline - Diluent 50 ML VIAL IV (12:48)
[2020-05-05] MEDS: Normal Saline 1,000 ML 1000 ML IV (13:30)
[2020-05-05 13:40] LABS: Bilirubin Negative (Negative); Blood Small (Negative); Clarity Clear (Clear); Glucose Negative (Negative); Ketones Negative (Negative); Leukocyte Esterase Negative (Negative); Nitrite Negative (Negative); Urobilinogen 0.2 EU/dL (Up TO 0.2)
[2020-05-05 13:48] LABS: Bacteria Rare HPF (Negative); C & S Indicated? C&S Done As Ordered; Crystals Negative HPF (Negative); Epithelial Cells Rare HPF (Negative); Mucus Negative (Negative); WBC 0-2 HPF (0-5)
[2020-05-05 14:55] LABS: Lactate 1.6 mmol/L (0.6-1.4)
[2020-05-05] MEDS: Prochlorperazine 10 MG/2 ML VIAL IVP (15:44)
[2020-05-05] MEDS: Dicyclomine 20 MG TAB PO (16:40)
[2020-05-05] MEDS: ACETAMINOPHEN 1,000 MG/100 ML BTL 400 MG IVPB (16:40)
--- NOTE | 2020-05-05 18:37 | NUR.NOTE ---
Nursing Note: PT appeared anxious and shaky at DC. Heart rate was elevated at 105bpm. Provider Lori made aware prior to DC. Provider spoke with PT at beside prior to DC. BGL assess prior to DC (Result: 146). Provider Lori made aware. Per Provider OK to Discharge
== END 2020-05-05 18:25 | disposition home or self-care (01) ==
PROVIDERS: Physician Assistant; Emergency Provider Physician Assistant; PCP Family Medicine
DX: R11.2 Nausea with vomiting, unspecified (principal); R51 Headache; R53.1 Weakness; R10.10 Upper abdominal pain, unspecified; T50.995A Adverse effect of other drugs, medicaments and biological substances, initial encounter; E86.0 Dehydration; D61.9 Aplastic anemia, unspecified
CPT/HCPCS: 36415; 80053; 83690; 86850; 86900; 86901; 93005; 96361; 96374; 96375; 99285; 74177; 81003; 81015; 83605; 84484; 85025; 87086; 93010; J0131; J0780; J2405; J3490

== ENCOUNTER 2020-05-06 12:11 | Inpatient (IN) | payer MEDICARE, OTHER, SELFPAY ==
[2020-05-06] VITALS (97 sets, daily range): BP systolic 56–160; BP diastolic 39–91; PULSE 57–212; RESP 15–48; TEMP 37.1–37.4; O2SAT 92–99
--- NOTE | 2020-05-06 00:05 | DI.RAD_ITS ---
EXAM: XR PORTABLE CHEST AP POST LINE CLINICAL HISTORY: new central line TECHNIQUE: COMPARISON: CR XR PORTABLE CHEST AP from 05/06/2020 FINDINGS: Supine AP chest was obtained. There are multiple sternal sutures. Cardiac size is within normal de la fuente its. Linear radiodensities noted at left lung base. Right mid lung radiodensity corresponds with sp iculated lesion identified on CT There is an apparent right side central venous catheter inserted via jugular approach, the tip overli es the SVC. IMPRESSION:
--- NOTE | 2020-05-06 12:27 | W.ED.GENAD ---
Discharge Plan Disposition Patient Disposition: [facility] INPATIENT Condition: Serious Discharge Details Chief Complaint: Fever Clinical Impression: Acute dehydration, Fever, Sepsis Admit Date/Time: 05/06/20 15:56 Admit Provider: Shelby Glez Attending Provider: Shelby Glez Primary Care Provider: Lizbeth Li V ED Provider: Tre Pham Medical Decision Making 74-year-old male with a past medical history of aplastic anemia on eltrombopag was here yesterday for abdominal pain, get a CT scan of the abdomen pelvis and some of the chest which showed chronic versus acute infiltrate in the lungs, as well as questionable mild enteritis versus mild colitis. Patient requested to go home. He was discharged respecting his wishes, at home he had 1 more episode of vomiting and then had subsequent complete resolution of his abdominal pain. Is able to tolerate a small amount of p.o. after this. However throughout the evening and into today the patient developed a fever of 101 at home, he had notable darkening of his urine, he began to feel notably worse and per his more confused, yet his abdominal pain remained resolved. Family does admit to this finding in the lungs been chronic from before, the patient denies any cough at this time. He denies any headache or neck pain. Denies any chest pain or shortness of breath. He has no history of blood clots in the past. The patient is a bit more yellow however patient's states that this is chronic for him. Also of note he does get regular iron infusions. He is status post CABG x3 vessels in 10/28/2019. Patient has been essentially self quarantine with his aside for the trips to [facility]. Physical exam demonstrates mild jaundice which family states is baseline. No abdominal pain or tenderness whatsoever. Bowel sounds present but reduced. No signs of nuchal rigidity. Crackles in the bases bilaterally. Differential is high for infectious etiology, viral versus bacterial. COVID unlikely but definitely on the differential. The atypical pneumonia noted on CT scan may certainly be a causative agent at this point. With the patient's fever, mild tachycardia, symptoms are positive for sepsis. I do feel he would benefit from admission. We will start antibiotics of vancomycin and Levaquin secondary to his cephalosporin allergy. Suspect need for admission. 4:30 PM Laboratory work-up has returned, no white count, no left shift, I do not think that this rules out illness whatsoever though. COVID testing panel was performed, d-dimer elevated not a candidate for CTA but his signs and symptoms appear and are clinically inconsistent with PE. Renal function is worsening now with a creatinine of 2.13 worsened from 1.5 yesterday. GFR is down to 30. Lactate is 1.9, total bilirubin is 2.7 which is near his normal. Ammonia negative, lactate dehydrogenase CRP both elevated. Troponin normal, EKG shows sinus tachycardia but no evidence of STEMI. TSH normal. Pending urinalysis, initial 500 cc bolus was given however patient did not have significant improvement, initial additional 500 cc bolus was then subsequently given and he was then bladder scan and only had 23 mL's in his bladder. Suspect notable dehydration as a component of his symptomatology. Chest x-ray does show radiodensities in the lung bases which may be pneumonitis or atelectasis. Repeat abdominal exam continues to show no abdominal tenderness whatsoever, bowel sounds are present but notably reduced. No distention at this time. No clinical evidence at this time of ileus or obstruction, however this may develop. He still denies any pain or tenderness in his abdomen whatsoever. He states that this feels much better in general. At this time his symptoms appearing consistent with colitis. The infectious source may be pulmonary, less likely abdominal. The issue could also be viral and I do feel that coronavirus is a potential etiology which we are testing for. Discussed the case with the hospitalist Dr. Glez, she agrees with the assessment and plan. I have extensively reviewed the treatment plan with the patient. I have addressed all patient concerns at this time. I have also discussed the plan with the admitting physician and they agree with the current assessment and plan and have agreed to assume responsibility for the patient. All parties demonstrate verbal understanding and agreement with our assessment and plan at this time. FINDINGS: Portable chest film at 1415 hours. The heart appears mildly enlarged. There are multiple sternal sutures. There are bilateral streaky and patchy intrapulmonary radiodensities in the lung bases, findings may represent pneumonitis and/or atelectasis. Appropriate follow-up studies requested. EKG 16: 36 Rate 136, SD 94, QTc 496, QRS 94, sinus tachycardia, no significant ST elevations, nonspecific T wave abnormality V2 through V5. Q waves in lead III and aVF, no inverted T waves there. Previous EKG from yesterday shows similar findings. HPI General Date/Time Provider Initiated Documentation: 05/06/20 12:14. HPI Narrative: 74-year-old male with a past medical history of aplastic anemia on eltrombopag was here yesterday for abdominal pain, get a CT scan of the abdomen pelvis and some of the chest which showed chronic versus acute infiltrate in the lungs, as well as questionable mild enteritis versus mild colitis. Patient requested to go home. He was discharged respecting his wishes, at home he had 1 more episode of vomiting and then had subsequent complete resolution of his abdominal pain. Is able to tolerate a small amount of p.o. after this. However throughout the evening and into today the patient developed a fever of 101 at home, he had notable darkening of his urine, he began to feel notably worse and per his more confused, yet his abdominal pain remained resolved. Family does admit to this finding in the lungs been chronic from before, the patient denies any cough at this time. He denies any headache or neck pain. Denies any chest pain or shortness of breath. He has no history of blood clots in the past. The patient is a bit more yellow however patient's states that this is chronic for him. Also of note he does get regular iron infusions. He is status post CABG x3 vessels in 10/28/2019. Related Data Home Medications Medication Instructions Recorded Confirmed eltrombopag 75 mg tablet 150 mg PO DAILY tab 02/03/19 05/06/20 dicyclomine 20 mg PO QID #20 tab 05/05/20 05/06/20 prochlorperazine maleate 10 mg PO TID PRN #10 tab 05/05/20 05/06/20 [Compazine] Previous Rx's Medication Instructions Recorded dicyclomine 20 mg PO QID #20 tab 05/05/20 prochlorperazine maleate 10 mg PO TID PRN #10 tab 05/05/20 [Compazine] Allergies Allergy/AdvReac Type Severity Reaction Status Date / Time pentamidine isethionate Allergy Severe Verified 05/06/20 12:24 cefadroxil [Cefadroxil] Allergy Unknown Unverified 06/25/20 12:24 General Stated Complaint: Fever SOCRATES: 3 Review of Systems All systems reviewed & are unremarkable except as noted in HPI and below [facility] Medical History Aplastic anemia (Acute) NSTEMI (non-ST elevated myocardial infarction) (Acute) Surgical History S/P CABG x 3 (Acute ~10/28/19) S/P hernia repair (Acute) Social History Smoking/Tobacco Use Status: Never Alcohol Intake: never Drug use: Never Substance use type: does not use What type of physical activity do you participate in: none Do you feel safe at home: Yes Do you feel safe in your relationship?: Yes Exam Narrative Exam Narrative: 1.Const: Well-nourished, Well-developed, appearing stated age 2.Eyes: PERRL, no conjunctival injection, and symmetrical lids. Mild scleral icterus 3.ENT: Atraumatic external nose and ears. Moist MM. Neck: Symmetric, trachea midline, No thyromegaly. 4.CVS: +S1/S2, No murmurs or gallops. Peripheral pulses 2+ and equal in all extremities. Brisk capillary refill in all extremities. 5.RESP: Unlabored respiratory effort. Bilateral crackles in the bases. 6.GI: Soft, Nontender/Nondistended, No hepatosplenomegaly. No guarding or rebound. No pain at McBurney's point, negative Yip sign. 7.MSK: Normocephalic/Atraumatic, Extremities w/o deformity or ttp No cyanosis or clubbing, Normal movement of all extremities 8.Skin: Warm, Dry. Slightly jaundiced. No other rashes. 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 Sensation grossly intact, no focal neurologic deficits. 10.Psych: (AAO) x3. Appropriate mood and affect Course Vital Signs Vital signs: Vital Signs Temperature 37.1 C 05/06/20 12:21 Pulse 119 H 05/06/20 12:21 Respiratory Rate 18 05/06/20 12:21 Blood Pressure 120/66 05/06/20 12:21 Pulse Oximetry 97 05/06/20 12:21 Temperature 37.1 C 05/06/20 12:21 Temperature Source Oral 05/06/20 12:21 Pulse 119 H 05/06/20 12:21 Respiratory Rate 18 05/06/20 12:21 Blood Pressure 120/66 05/06/20 12:21 Blood Pressure Position Sitting 05/06/20 12:21 Pulse Oximetry 97 05/06/20 12:21 Oxygen Delivery Method Room Air 05/06/20 12:21 Oxygen Flow Rate 0 05/06/20 12:21 Lab/Test Results Lab/Test Results: 05/06/20 12:18 Blood Blood Culture - Pending 05/06/20 12:18 Blood Blood Culture - Pending
--- NOTE | 2020-05-06 12:30 | DI.RAD_ITS ---
EXAM: XR PORTABLE CHEST AP CLINICAL HISTORY: fever, ltered, ct showed pneumonia TECHNIQUE: COMPARISON: CR XR PORTABLE CHEST AP from 10/27/2019 FINDINGS: Portable chest film at 1415 hours. The heart appears mildly enlarged. There are multiple sternal murphy tures. There are bilateral streaky and patchy intrapulmonary radiodensities in the lung bases, findi ngs may represent pneumonitis and/or atelectasis. Appropriate follow-up studies requested. IMPRESSION:
[2020-05-06] MEDS: Normal Saline 500 ML IV ×2 (13:00→15:53)
[2020-05-06 13:07] LABS: BE (Venous) -1.7 mmol/L (-3-3); HCO3 (Venous) 23 mmol/L (22-28); O2 Sat (Venous) 59 % (70-80); TCO2 (Venous) 22 mmol/L (22-29); pCO2 (Venous) 38 mm/Hg (34-47); pH (Venous) 7.39 (7.35-7.45); pO2 (Venous) 31 mm/Hg (28-44)
[2020-05-06 13:10] LABS: Abs Immature Grans 0.05 k/cumm (0.0-0.09); HCT 35.8 % (40.0-50.0); Mean Corp. HGB Concentration 30.7 g/dL (32.0-36.0); Mean Corpuscular Volume 78.2 fL (80-95); RBC 4.58 m/cumm (4.50-6.00); RBC Distribution Width 29.1 % (11.8-14.1)
[2020-05-06] MEDS: levoFLOXacin 750 MG/150 ML BAG 100 MG IVPB (13:27)
[2020-05-06 13:29] LABS: Absolute Lymphocyte Count 1.32 k/cumm (1.2-3.4); Absolute Monocyte Count 1.87 k/cumm (0.11-0.7); Absolute Neutrophil Count 2.31 k/cumm (1.2-6.7); Atypical Lymphocytes % 1
[2020-05-06 13:30] LABS: Anisocytosis 2+; Diff Comment Manual Differential; Nucleated RBC 6 /100WBC; Polychromasia Present
[2020-05-06 13:31] LABS: Platelet Count 171 x1000/uL (130-400); Poikilocytes 1+
[2020-05-06 13:32] LABS: C-Reactive Protein 19.02 mg/dL (0.0-0.3); LDH 331 U/L (85-227)
[2020-05-06 13:36] LABS: Lactate 1.9 mmol/L (0.6-1.4)
[2020-05-06 13:40] LABS: Ammonia < 10 umol/L (11-32)
[2020-05-06 13:42] LABS: ALT 18 U/L (16-63); AST 21 U/L (15-37); Albumin 3.6 g/dL (3.4-5.0); Alkaline Phosphatase 91 U/L (46-116); Anion Gap 11.4 mmol/L (3-11); BUN 28 mg/dL (7-18); Bilirubin, Total 2.7 mg/dL (0.2-1.0); CO2 23.6 mmol/L (21.0-32.0); CREATININE 2.13 mg/dL (0.70-1.30); Calcium 8.7 mg/dL (8.5-10.1); Chloride 99 mmol/L (98-107); Estimated GFR 30.61 (mL/min/1.73m2); Glucose 129 mg/dL (74-106); Sodium 134 mmol/L (136-145); TSH (W/Ref FT4) 0.54 uIU/mL (0.36-3.74); Total Protein 7.3 g/dL (6.4-8.2)
[2020-05-06 13:43] LABS: Troponin I < 0.05 ng/mL (<0.06)
[2020-05-06 13:50] LABS: D-Dimer 2610 ng/mlFEU (<500)
[2020-05-06 13:59] LABS: Ferritin 197 ng/mL (26-388)
[2020-05-06 14:27] LABS: Procalcitonin 7.9 ng/mL
[2020-05-06] MEDS: DOXYCYCLINE 100 MG in Normal Saline 100 ML IVPB (14:57)
--- NOTE | 2020-05-06 16:25 | W.PM.HP.N ---
Date of service: 05/06/20 Time of Service: 16:26 Assessment and Plan Assessment and plan (1) Sepsis: Status: Acute Assessment and plan: differentials include respiratory, urine, and intra-abdominal. he is oxygenating well on room air in the high 90's. urine culture is pending. His heart rate elevated but BP stable. no white count. will continue IV hydration in setting of acute dehydration. he received vanco and levaquin in the ED. will repeat CXR in am. blood cuture, covid screen and urine culture pending. his CT yesterday of abd/pelvis showed Left lower lobe patchy pulmonary infiltrates, acute versus chronic, please correlate clinically. Nonobstructing left renal calculi. Large bilateral renal cysts, noted on prior studies. Wall thickening of the terminal ileum, this may represent inflammatory process. Question mild wall thickening of descending colon as well, colitis should also be considered. will admit to ICU on zosyn and doxycycline, hold off on vanco for now. He will need repeat imaging of his abdomen. CT chest abd/pelvis pending, ABG pending. (2) Acute dehydration: Status: Acute Assessment and plan: Will continue IV hydration monitor I&O closely. Follow kidney functions closely renal dose all medications as needed (3) Aplastic anemia: Status: Acute Assessment and plan: Followed by [facility] hematology/oncology, Dr. Almanza.. His case was discussed yesterday with her nurse practitioner Aylin with regards to his eltrombopag, which she does not think is related to patient symptoms. no renal dosing necessary. hepatic adjustments in setting of ALT/AST > 6 times ULN, T bili elevated at 2.7 with baseline 1.9-2.4. will discuss with Dr Almanza tomorrow if we should hold or continue dosing. (4) S/P CABG x 3: Status: Acute Assessment and plan: Status post bypass grafting in October [address] Hare. Postoperatively he was unable to tolerate beta-david and statin. His cardiac surgeon discontinued his beta-david and his surface water technician discontinued his statin. He did have a brief period of SVT and atrial fibrillation during his immediate postoperative period. He was started on amiodarone and did convert back to sinus rhythm. The amiodarone has been discontinued and he has had no episodes of palpitations or documented atrial fibrillation since (5) Elevated d-dimer: Status: Acute Assessment and plan: Of unknown significance. oxygenating well. Consider VQ scan and/or echocardiogram. case and plan discussed with DR Glez who is in agreement. History of Present Illness History of Present Illness Chief Complaint: fever, malaise Narrative: This is a 74-year-old male patient with a past medical history of aplastic anemia status post CABG in October 2019 who presented to the emergency department yesterday with complaints of generalized malaise fever and abdominal discomfort. His work-up was unrevealing and he opted for discharge to home. He returns today with ongoing symptoms of fever malaise but the abdominal pain has resolved. His work-up today does show acute on chronic renal failure likely prerenal from dehydration. There is no obvious source of infection identified but question of pneumonia by x-ray and possible urinary tract infection. He was given vancomycin and Levaquin in the emergency department hospitalist services was consulted for admission he is being admitted to the medical surgical unit for further evaluation and monitoring. Review of Systems All systems reviewed & are unremarkable except as noted in HPI and below Constitutional Constitutional: Reports fatigue, Reports fever(s), Denies headache(s), Reports lethargy and Reports malaise Eyes Eyes: Denies change in vision ENT Ears, Nose, Mouth, and Throat: Denies dizziness, Denies headache(s) and Denies sore throat Cardiovascular Cardiovascular: Denies chest pain and Reports dyspnea Respiratory Respiratory: Denies cough and Reports dyspnea Gastrointestinal Gastrointestinal: Reports abdominal pain and Denies constipation Musculoskeletal Musculoskeletal: Reports myalgias Integumentary/Breasts Skin/Breast: Reports other (generalized mottling) Neurologic Neurologic: Denies confusion, Denies dizziness and Denies headache(s) Psychiatric Psychiatric: Denies confusion Endocrine Endocrine: Reports fatigue ON LICENSE OF [facility] Medical History Aplastic anemia (Acute) NSTEMI (non-ST elevated myocardial infarction) (Acute) Surgical History S/P CABG x 3 (Acute ~10/28/19) S/P hernia repair (Acute) Social History Smoking/Tobacco Use Status: Never Alcohol Intake: never Drug use: Never Substance use type: does not use What type of physical activity do you participate in: none Do you feel safe at home: Yes Do you feel safe in your relationship?: Yes Meds Home Medications and Allergies Home Medications Medication Instructions Recorded Confirmed Type eltrombopag 75 mg tablet 150 mg PO DAILY tab 02/03/19 05/06/20 History dicyclomine 20 mg PO QID #20 tab 05/05/20 05/06/20 Rx prochlorperazine maleate 10 mg PO TID PRN #10 tab 05/05/20 05/06/20 Rx [Compazine] Allergies Allergy/AdvReac Type Severity Reaction Status Date / Time cefadroxil [Cefadroxil] Allergy Intermediate Skin Rash Verified 05/06/20 17:11 pentamidine isethionate Allergy Mild Skin Rash Verified 05/06/20 17:11 Exam Const General: frail appearing and ill appearing acutely and chronically Nutritional Appearance: average body habitus Orientation: awake and oriented x3 HENMT Head: normal to inspection, normocephalic and atraumatic Mouth: abnormal oral mucosae (oral mucosa dry) Resp Effort & Inspection: tachypneic Auscultation: clear to auscultation bilaterally and no wheezes Cardio Rate: regular rate and tachycardic Rhythm: regular rhythm Heart Sounds: no murmurs GI Inspection: distended Palpation: soft and tender Auscultation: hypoactive bowel sounds Skin General skin exam: mottling Extrem General: normal to inspection and edema Laterality: bilateral Results Labs Result diagrams: 05/06/20 12:40 05/06/20 12:40 Labs: Laboratory Results - last 24 hr 05/06/20 05/06/20 05/06/20 12:40 12:40 12:40 WBC 5.50 RBC 4.58 Hgb 11.0 L Hct 35.8 L MCV 78.2 L MCH 24.0 L MCHC 30.7 L RDW 29.1 H Plt Count 171 MPV Immature Gran % 0.0 Neutrophils % 42.0 Lymphocytes % 23.0 Atypical Lymphs % 1 Monocytes % 34.0 Eosinophils % 0.0 Basophils % 0.0 Absolute Neutrophils 2.31 Absolute Lymphocytes 1.32 Absolute Monocytes 1.87 H Absolute Eosinophils 0.00 Absolute Basophils 0.00 Nucleated RBCs 6 Differential Comment Manual differential RBC Morphology See below Polychromasia Present Poikilocytosis 1+ Anisocytosis 2+ D-Dimer VBG pH VBG pCO2 VBG pO2 VBG HCO3 VBG Total CO2 VBG O2 Saturation VBG Base Excess Sodium 134 L Potassium 4.0 Chloride 99 Carbon Dioxide 23.6 Anion Gap 11.4 H BUN 28 H Creatinine 2.13 H Estimated GFR/1.73 m2 30.61 Glucose 129 H Lactate Calcium 8.7 Ferritin Total Bilirubin 2.7 H AST 21 ALT 18 Alkaline Phosphatase 91 Ammonia < 10 L Lactate Dehydrogenase Troponin I < 0.05 C-Reactive Protein Total Protein 7.3 Albumin 3.6 Procalcitonin TSH 0.54 05/06/20 05/06/20 05/06/20 12:40 12:40 12:40 WBC RBC Hgb Hct MCV MCH MCHC RDW Plt Count MPV Immature Gran % Neutrophils % Lymphocytes % Atypical Lymphs % Monocytes % Eosinophils % Basophils % Absolute Neutrophils Absolute Lymphocytes Absolute Monocytes Absolute Eosinophils Absolute Basophils Nucleated RBCs Differential Comment RBC Morphology Polychromasia Poikilocytosis Anisocytosis D-Dimer VBG pH 7.39 VBG pCO2 38 VBG pO2 31 VBG HCO3 23 VBG Total CO2 22 VBG O2 Saturation 59 L VBG Base Excess -1.7 Sodium Potassium Chloride Carbon Dioxide Anion Gap BUN Creatinine Estimated GFR/1.73 m2 Glucose Lactate Calcium Ferritin 197 Total Bilirubin AST ALT Alkaline Phosphatase Ammonia Lactate Dehydrogenase 331 H Troponin I C-Reactive Protein 19.02 H Total Protein Albumin Procalcitonin 7.9 TSH 05/06/20 05/06/20 12:40 13:30 WBC RBC Hgb Hct MCV MCH MCHC RDW Plt Count MPV Immature Gran % Neutrophils % Lymphocytes % Atypical Lymphs % Monocytes % Eosinophils % Basophils % Absolute Neutrophils Absolute Lymphocytes Absolute Monocytes Absolute Eosinophils Absolute Basophils Nucleated RBCs Differential Comment RBC Morphology Polychromasia Poikilocytosis Anisocytosis D-Dimer 2610 H VBG pH VBG pCO2 VBG pO2 VBG HCO3 VBG Total CO2 VBG O2 Saturation VBG Base Excess Sodium Potassium Chloride Carbon Dioxide Anion Gap BUN Creatinine Estimated GFR/1.73 m2 Glucose Lactate 1.9 H Calcium Ferritin Total Bilirubin AST ALT Alkaline Phosphatase Ammonia Lactate Dehydrogenase Troponin I C-Reactive Protein Total Protein Albumin Procalcitonin TSH Last Vital Signs Temp 37.1 C 05/06/20 16:03 Pulse 135 H 05/06/20 16:00 Resp 36 H 05/06/20 16:10 BP 119/62 05/06/20 16:00 Pulse Ox 96 05/06/20 16:10 COVID-19 Screening In the past 14 days, have you traveled outside of [place]?: NO Had IN PERSON contact w/suspected or confirmed C-19 person: No
[2020-05-06] MEDS: Normal Saline 1,000 ML 1000 ML IV ×2 (18:03→19:22)
[2020-05-06 18:07] LABS: Lactate 1.6 mmol/L (0.6-1.4)
--- NOTE | 2020-05-06 18:17 | DI.CT_ITS ---
EXAM: CT CHEST/ABD/PEL WO CLINICAL HISTORY: Fever, abdominal pain TECHNIQUE: COMPARISON: CT CHEST ABD PELVIS WITH CONTRAST from 09/28/2015 CR XR PORTABLE CHEST AP from 10/27/[address] ABDOMEN PELVIS W from 05/05/2020 FINDINGS: CT examination of the chest, abdomen, pelvis was without contrast administration. There is a spiculated irregular lesion of the right upper lung field anteriorly which lies adjacent t o the minor fissure and involves portions of upper and middle lobes. Findings are suspicious for hadley plasm. This was not present on prior chest CT of 2014. There are areas of predominantly linear increased radiodensity in the lung bases consistent with atel ectasis. Tracheobronchial tree appears intact. No gross mediastinal or hilar adenopathy by noncontr ast criteria. No pleural effusion. No pneumothorax. No supraclavicular or axillary adenopathy. Today's noncontrast CT of the abdomen is compared with abdominal CT obtained yesterday which was a co ntrast enhanced examination. There are multiple newly dilated fluid and gas-filled bowel loops which appear to represent ascending and transverse colon, there is question of wall thickening of the dist al descending colon, relative obstruction could be present at this site. Mild nonspecific dilatation of small bowel throughout the abdomen, no focal site of obstruction is seen. The terminal ileum is distended but no gross wall thickening seen. Liver and spleen grossly unremarkable by noncontrast criteria as is the pancreas. Gallbladder is mil dly distended. No biliary dilatation. Adrenals appeared normal on yesterday's contrast enhanced CT. On today's examination there are massl brennan lesions corresponding to the location of the adrenal glands although there is significant motion artifact on this scan, follow-up scan recommended, adrenal hemorrhage would have to be considered, pl ease correlate clinically. Large renal cysts again noted, no evidence of hydronephrosis. No abdominal aortic aneurysm. No free air. No free fluid in the peritoneal cavity. Appendix appears normal. No evidence of diverticulit is. Contrast material noted in urinary bladder following yesterday's contrast enhanced CT. IMPRESSION: New right sided pulmonary spiculated masslike lesion, suspicious for malignancy. Interval development of colonic and small bowel dilatation since yesterday's examination, question di stal descending colonic focal wall thickening, obstruction at this site not excluded. Although the adrenal glands appeared normal on yesterday's contrast enhanced examination there is a s uggestion of masslike lesions of the adrenals bilaterally on today's scan. This raises the possibili ty of acute process such as adrenal hemorrhage, appropriate follow-up studies requested
[2020-05-06 18:34] LABS: Troponin I < 0.05 ng/mL (<0.06)
[2020-05-06 18:48] LABS: HCO3 17 mmol/L (22-28); pCO2 25 mmHg (34-47); pH 7.45 (7.35-7.45); pO2 58 mmHg (83-108); sO2 91 % (94-98); tCO2 16 mmol/L (22-29)
[2020-05-06 18:50] LABS: FIO2 21 %; Site Right Radial
--- NOTE | 2020-05-06 18:50 | DI.VRAD_ITS ---
PROCEDURE INFORMATION: Exam: CT Chest Without Contrast Exam date and time: 05/06/2020 5:57 PM Age: 74 years old Clinical indication: Fever; Other: Abdominal pain; Prior surgery TECHNIQUE: Imaging protocol: Computed tomography of the chest without contrast. COMPARISON: CT CHEST ABD PELVIS WITH CONTRAST 09/28/2015 1:31 PM FINDINGS: Lungs: See Soft tissues finding. Pleural space: Unremarkable. No pneumothorax. No pleural effusion. Heart: Mild cardiomegaly. Aorta: Unremarkable. No aortic aneurysm. Lymph nodes: Unremarkable. No enlarged lymph nodes. Bones/joints: Status post median sternotomy. Soft tissues: Right upper lobe slightly spiculated soft tissue process. This has enlarged since previous exam. The area of involvement measures approximately 1.6 x 2.2 cm. Mild bibasilar atelectasis, left worse than right. Mild right-sided gynecomastia. Other findings: Respiratory motion noted. IMPRESSION: Right upper lobe soft tissue attenuation with mild spiculation enlarged from prior study, of concern for primary lung neoplasm. PROCEDURE INFORMATION: Exam: CT Abdomen And Pelvis Without Contrast Exam date and time: 05/06/2020 5:57 PM Age: 74 years old Clinical indication: Fever; Other: Abdominal pain; Prior surgery TECHNIQUE: Imaging protocol: Computed tomography of the abdomen and pelvis without contrast. COMPARISON: CT CHEST ABD PELVIS WITH CONTRAST 09/28/2015 1:31 PM FINDINGS: Liver: Normal. No mass. Gallbladder and bile ducts: Layering debris noted in the gallbladder. Pancreas: Normal. No ductal dilation. Spleen: Normal. No splenomegaly. Adrenals: There are bilateral soft tissue masses involving the adrenal glands, new since prior study. Right adrenal mass measures 2.9 cm. Left adrenal mass measures 2.8 cm. Kidneys and ureters: Large bilateral renal cysts are again seen, smaller on the right compared to previous exam. Stomach and bowel: There are distended small bowel loops with air-fluid formation seen in the right mid abdomen and lower quadrant. Diameter measures up to 3.5 cm and appears to correspond to the mid to distal ileal level. Moderate fecal retention pattern. There is relative distention of the right colon and transverse colon. There is extensive sigmoid diverticulosis. The sigmoid colon appears decompressed. Appendix: No evidence of appendicitis. Intraperitoneal space: See Stomach and bowel finding. Vasculature: Unremarkable. No abdominal aortic aneurysm. Lymph nodes: Unremarkable. No enlarged lymph nodes. Bladder: There is some high density material present in the bladder, presumed previous contrast injection. Reproductive: Prostate enlarged 5.6 cm. Bones/joints: Unremarkable. No acute fracture. Soft tissues: Unremarkable. Other findings: Significant respiratory motion slightly limits the exam. IMPRESSION: 1. Small-bowel distention of the mid and distal ileum of concern for early or partial small bowel obstruction. There is some relative afferent colonic distension. Degree of stricture formation at the sigmoid level is not excludable. 2. Gallbladder disease. Recommend sonography. 3. Bilateral adrenal masses of concern for possible metastatic disease. Follow-up recommended. Dictated and Authenticated by: Katherine Campos MD. Ordering:PAYTON Ryan MD
[2020-05-06] MEDS: ACETAMINOPHEN 1,000 MG/100 ML BTL 400 MG IVPB (19:05)
[2020-05-06] MEDS: Normal Saline 1,000 ML 150 ML IV (19:33)
[2020-05-06] MEDS: PIPERACILLIN/TAZO 2.25 GM in Normal Saline 50 ML IVPB (21:39)
[2020-05-06] MEDS: Normal Saline Flush 10 ML SYR (21:41)
[2020-05-06] MEDS: Normal Saline-STERILE FIELD 0.9% 10 ML SYR (21:42)
[2020-05-06] MEDS: Normal Saline 250 ML 500 ML IV (21:43)
[2020-05-06] MEDS: Lidocaine 2% Jelly 11 ML SYR (21:43)
[2020-05-06] MEDS: metroNIDAZOLE 500 MG/100 ML BAG 100 MG IVPB (22:18)
[2020-05-06] MEDS: Hydrocortisone SOD SUC. 100 MG VIAL IVP (22:21)
--- NOTE | 2020-05-06 22:25 | W.SURGCON ---
Date of service: 05/06/20 Time of Service: 20:30 Assessment and Plan Assessment and plan (1) Abdominal pain: Status: Acute Assessment and plan: He denies significant abdominal pain over the last 24 hours. His exam does not suggest a surgical emergency and no acute surgical issue was noted on CT. I agree with placement of an NG tube although he has had several loose stools in the ICU that do not appear bloody. Stool cultures pending. We discussed placement of a central line which he declines. He also states at this time he would not want to be placed on a ventilator. I asked him if he would agree to abdominal surgery and he essentially replied that it did not seem necessary at this time. Zosyn has been ordered along with the vancomycin and doxycycline given in the ER. Will follow. History of Present Illness Narrative: This patient was admitted today with fever and sepsis initially thought to be related to a possible pneumonia. He had presented to the ER yesterday with headache, N/V, upper abdominal pain, poor PO intake. He was noted to have an elevated lactate which improved with fluids. CT scan of the abdomen and pelvis showed possible left sided colitis. His symptoms improved and he declined admission. He returned to day due to fever and confusion. His abdominal complaints had resolved. When I interviewed him in the ICU he is appropriate. He states the pain was in the LLQ but has now subsided. The vomiting was gastric contents and did not make him feel any better. He has had no prior abdominal surgery. He has not had this pain before although the ER note from two days indicates he has some pain after injection for his aplastic anemia. Repeat CT scan tonight without contrast shows some mildly dilated loops of small bowel in the RLQ. Review of Systems Narrative: Denies chest pain, SOB or cough. [facility] Medical History Aplastic anemia (Acute) NSTEMI (non-ST elevated myocardial infarction) (Acute) Surgical History S/P CABG x 3 (Acute ~10/28/19) S/P hernia repair (Acute) Social History Smoking/Tobacco Use Status: Never Alcohol Intake: never Drug use: Never Substance use type: does not use What type of physical activity do you participate in: none Do you feel safe at home: Yes Do you feel safe in your relationship?: Yes Exam Narrative Exam Narrative: Arousable, appropriate Mild scleral icterus Abdomen non distended. Mild tenderness bilateral lower quadrants but no peritonitis. No hernia. Randle with minimal output Extremities cool, is on norepi drip Results Last Vital Signs Temp 99.2 F 05/06/20 18:06 Pulse 122 H 05/06/20 20:45 Resp 26 H 05/06/20 20:45 BP 83/52 L 05/06/20 20:45 Pulse Ox 98 05/06/20 20:45 Labs Result diagrams: 05/06/20 12:40 05/06/20 12:40 Labs: Laboratory Results - last 24 hr 05/06/20 05/06/20 05/06/20 12:40 12:40 12:40 WBC 5.50 RBC 4.58 Hgb 11.0 L Hct 35.8 L MCV 78.2 L MCH 24.0 L MCHC 30.7 L RDW 29.1 H Plt Count 171 MPV Immature Gran % 0.0 Neutrophils % 42.0 Lymphocytes % 23.0 Atypical Lymphs % 1 Monocytes % 34.0 Eosinophils % 0.0 Basophils % 0.0 Absolute Neutrophils 2.31 Absolute Lymphocytes 1.32 Absolute Monocytes 1.87 H Absolute Eosinophils 0.00 Absolute Basophils 0.00 Nucleated RBCs 6 Differential Comment Manual differential RBC Morphology See below Polychromasia Present Poikilocytosis 1+ Anisocytosis 2+ D-Dimer ABG Sample Site ABG pH ABG pCO2 ABG pO2 ABG HCO3 ABG Total CO2 ABG O2 Saturation ABG Base Excess VBG pH VBG pCO2 VBG pO2 VBG HCO3 VBG Total CO2 VBG O2 Saturation VBG Base Excess FiO2 Sodium 134 L Potassium 4.0 Chloride 99 Carbon Dioxide 23.6 Anion Gap 11.4 H BUN 28 H Creatinine 2.13 H Estimated GFR/1.73 m2 30.61 Glucose 129 H Lactate Calcium 8.7 Ferritin Total Bilirubin 2.7 H AST 21 ALT 18 Alkaline Phosphatase 91 Ammonia < 10 L Lactate Dehydrogenase Troponin I < 0.05 C-Reactive Protein Total Protein 7.3 Albumin 3.6 Procalcitonin TSH 0.54 06/25/20 06/25/20 06/25/20 12:40 12:40 12:40 WBC RBC Hgb Hct MCV MCH MCHC RDW Plt Count MPV Immature Gran % Neutrophils % Lymphocytes % Atypical Lymphs % Monocytes % Eosinophils % Basophils % Absolute Neutrophils Absolute Lymphocytes Absolute Monocytes Absolute Eosinophils Absolute Basophils Nucleated RBCs Differential Comment RBC Morphology Polychromasia Poikilocytosis Anisocytosis D-Dimer ABG Sample Site ABG pH ABG pCO2 ABG pO2 ABG HCO3 ABG Total CO2 ABG O2 Saturation ABG Base Excess VBG pH 7.39 VBG pCO2 38 VBG pO2 31 VBG HCO3 23 VBG Total CO2 22 VBG O2 Saturation 59 L VBG Base Excess -1.7 FiO2 Sodium Potassium Chloride Carbon Dioxide Anion Gap BUN Creatinine Estimated GFR/1.73 m2 Glucose Lactate Calcium Ferritin 197 Total Bilirubin AST ALT Alkaline Phosphatase Ammonia Lactate Dehydrogenase 331 H Troponin I C-Reactive Protein 19.02 H Total Protein Albumin Procalcitonin 7.9 TSH 05/06/20 05/06/20 05/06/20 12:40 13:30 18:00 WBC RBC Hgb Hct MCV MCH MCHC RDW Plt Count MPV Immature Gran % Neutrophils % Lymphocytes % Atypical Lymphs % Monocytes % Eosinophils % Basophils % Absolute Neutrophils Absolute Lymphocytes Absolute Monocytes Absolute Eosinophils Absolute Basophils Nucleated RBCs Differential Comment RBC Morphology Polychromasia Poikilocytosis Anisocytosis D-Dimer 2610 H ABG Sample Site ABG pH ABG pCO2 ABG pO2 ABG HCO3 ABG Total CO2 ABG O2 Saturation ABG Base Excess VBG pH VBG pCO2 VBG pO2 VBG HCO3 VBG Total CO2 VBG O2 Saturation VBG Base Excess FiO2 Sodium Potassium Chloride Carbon Dioxide Anion Gap BUN Creatinine Estimated GFR/1.73 m2 Glucose Lactate 1.9 H Calcium Ferritin Total Bilirubin AST ALT Alkaline Phosphatase Ammonia Lactate Dehydrogenase Troponin I < 0.05 C-Reactive Protein Total Protein Albumin Procalcitonin TSH 05/06/20 05/06/20 18:03 18:42 WBC RBC Hgb Hct MCV MCH MCHC RDW Plt Count MPV Immature Gran % Neutrophils % Lymphocytes % Atypical Lymphs % Monocytes % Eosinophils % Basophils % Absolute Neutrophils Absolute Lymphocytes Absolute Monocytes Absolute Eosinophils Absolute Basophils Nucleated RBCs Differential Comment RBC Morphology Polychromasia Poikilocytosis Anisocytosis D-Dimer ABG Sample Site Right radial ABG pH 7.45 ABG pCO2 25 L ABG pO2 58 L ABG HCO3 17 L ABG Total CO2 16 L ABG O2 Saturation 91 L ABG Base Excess -7.0 L VBG pH VBG pCO2 VBG pO2 VBG HCO3 VBG Total CO2 VBG O2 Saturation VBG Base Excess FiO2 21 Sodium Potassium Chloride Carbon Dioxide Anion Gap BUN Creatinine Estimated GFR/1.73 m2 Glucose Lactate 1.6 H Calcium Ferritin Total Bilirubin AST ALT Alkaline Phosphatase Ammonia Lactate Dehydrogenase Troponin I C-Reactive Protein Total Protein Albumin Procalcitonin TSH
[2020-05-06 22:52] LABS: Bilirubin Small (Negative); Blood Large (Negative); Clarity Sl Cloudy (Clear); Glucose Negative (Negative); Ketones Trace mg/dL (Negative); Leukocyte Esterase Negative (Negative); Nitrite Negative (Negative); Specific Gravity 1.025 (1.005-1.025); Urobilinogen 0.2 EU/dL (Up TO 0.2)
--- NOTE | 2020-05-06 23:30 | W.PM.OP ---
Date of service: 05/06/20 Time of Service: 23:30 Operative Note Operative Note DATE OF PROCEDURE: 05/06/20 PRE-OP DIAGNOSIS: Septic shock POST-OP DIAGNOSIS: same PROCEDURE: Patient presented in septic shock with acute renal insufficiency in the setting of chronic kidney disease and dehydration refractory to norepinephrine drip and IV fluid boluses. Indications alternative treatments and potential risks and complications were discussed with the patient. He was agreeable to proceed with placement of a right internal jugular 7 [place] triple-lumen 20 cm Arrow guard Blue plus pressure injectable multilumen CVC. Right internal jugular vein was identified with ultrasonography and found to be compressible from the angle of his jaw down to his clavicle. Patient was prepped in usual sterile fashion and draped with a sterile drape and under sterile technique the aforementioned Arrow 7 [place] triple-lumen, 20 cm catheter kit was used under ultrasound guidance to cannulate his right internal jugular vein. The IJ vein was found to be lateral to the carotid artery in the center of the vein was 2 cm in depth and using the enclosed 18-gauge 2-1/2 inch introducer needle with 5 mL Arrow [place] spring wire introduction syringe and using the Seldinger technique the guidewire was passed through the lumen of the syringe and introducer needle into the right internal jugular vein. However resistance was met and ultrasound demonstrated the tip of the guidewire in the posterior wall of the vein. Guidewire was pulled back and tried to be redirected but was unsuccessful. This necessitated a second attempt using a fresh kit performing a second stick with a similar 18-gauge introducer catheter and Raulerson syringe and J-tip spring wire. Again ultrasound guidance was used this time the guidewire was able to be passed without difficulty. Syringe and needle were withdrawn and using a Seldinger technique a triple-lumen catheter was passed after a skin incision had been made with the enclosed scalpel and after the vessel had been dilated. The triple-lumen catheter was passed with a distance of 15 cm at the point of entry through the skin. And the catheter was again confirmed in proper placement with the ultrasound as well as dark nonpulsatile blood flow through each of the catheters. The triple-lumen catheter was secured with 3-0 silk suture and curved needle as well as with the enclosed catheter clamp. Patient tolerated the procedure well and a stat portable chest x-ray is pending at this time. POCUS of right anterior chest in superior and mid chest taken from highest point showed lung sliding. SURGEON: Mack Zhao ANESTHESIA: local ESTIMATED BLOOD LOSS: 0 PATHOLOGY: none sent COMPLICATIONS: None Patient was transported to: ICU Patient's condition: critical
[2020-05-06 23:38] LABS: RBC >50 HPF (0-2); WBC 0-2 HPF (0-5)
[2020-05-06 23:39] LABS: C & S Indicated? C&S Done As Ordered; Casts Negative LPF (Negative); Crystals Many Amorphous HPF (Negative); Mucus Negative (Negative)
[2020-05-07] VITALS (119 sets, daily range): BP systolic 78–154; BP diastolic 44–88; PULSE 89–147; RESP 15–34; TEMP 35.9–37.6; O2SAT 87–100
--- NOTE | 2020-05-07 | DI.US_ITS ---
EXAM: US ABDOMEN RENAL CLINICAL HISTORY: abdominal pain TECHNIQUE: Ultrasound performed using standard protocol. COMPARISON: US US EXTREMITY VENOUS BI from 05/07/2020 FINDINGS: The examination is technically limited due to overlying bowel gas and the patient's body habitus. Th ere are bilateral renal simple cysts as noted on recent CT and prior CT examinations liver is grossly unremarkable. There are multiple apparent gallstones with gallbladder sludge also present. No gall bladder wall thickening or pericholecystic fluid collection seen. No biliary dilatation. Spleen is grossly unremarkable. No evidence of hydronephrosis. IMPRESSION: Cholelithiasis noted. No other significant findings. Limited study technically. Please see recent CT examinations. DATA REPOSITORY:
--- NOTE | 2020-05-07 | DI.US_ITS ---
EXAM: US EXTREMITY VENOUS BI CLINICAL HISTORY: acute hypoxia, concern for DVT/PE. TECHNIQUE: Ultrasound performed using standard protocol. COMPARISON: US Cardiac from 03/22/2018 FINDINGS: Duplex venous ultrasound was performed according to the usual protocol. The deep veins are freely com pressible throughout and there is normal flow augmentation with manual calf compression. 2D and Doppl er evaluation are unremarkable. IMPRESSION: No evidence of deep venous thrombosis of right or left lower extremity. DATA REPOSITORY:
--- NOTE | 2020-05-07 00:18 | DI.VRAD_ITS ---
PROCEDURE INFORMATION: Exam: XR Chest, 1 View Exam date and time: 05/06/2020 11:54 PM Age: 74 years old Clinical indication: Device placement; Prior surgery; Surgery date: Post-operative (0-2 days); Surgery type: Central line placement TECHNIQUE: Imaging protocol: XR of the chest Views: 1 view. COMPARISON: CR XR PORTABLE CHEST AP 05/06/2020 2:08 PM FINDINGS: Tubes, catheters and devices: Right central line catheter in place. The tip is seen at the mid SVC level. Lungs: Coarse left lower lobe lung markings are again noted. There is some mild right lung base atelectasis. The lungs are hypoinflated. Pleural space: Unremarkable. No pleural effusion. No pneumothorax. Heart/Mediastinum: Unremarkable. No cardiomegaly. Bones/joints: Status post median sternotomy. IMPRESSION: Right central line catheter in place. No pneumothorax. Dictated and Authenticated by: Katherine Campos MD. Ordering:[facility] Pavel Giron MD
[2020-05-07 00:39] LABS: Lactate 3.3 mmol/L (0.6-1.4)
--- NOTE | 2020-05-07 01:50 | DI.RAD_ITS ---
EXAM: XR PORTABLE CHEST AP POST LINE CLINICAL HISTORY: ng placed TECHNIQUE: COMPARISON: CT CT ABDOMEN PELVIS W from 05/05/2020 CR,XR XR PORTABLE CHEST AP POST LINE from 05/06/2020 FINDINGS: Portable AP chest at 0150 hours, right central venous catheter again noted. NG tube has been placed, the tip of which overlies the gastric fundus. No other significant change. IMPRESSION:
--- NOTE | 2020-05-07 02:05 | DI.VRAD_ITS ---
PROCEDURE INFORMATION: Exam: XR Chest, 1 View Exam date and time: 05/07/2020 1:43 AM Age: 74 years old Clinical indication: Device placement; Prior surgery; Surgery date: Post-operative (0-2 days); Surgery type: Central line, ng tube TECHNIQUE: Imaging protocol: XR of the chest Views: 1 view. COMPARISON: CR XR PORTABLE CHEST AP POST LINE 05/06/2020 11:48 PM FINDINGS: Tubes, catheters and devices: Interval placement of NG tube with distal portion curled and projecting over left upper quadrant. Right internal jugular central venous line unchanged in position. Lungs: New, small infiltrates in mid and upper right lung. Infiltrate and or increasing subsegmental atelectasis in left lung base. Pleural space: There may be a small left pleural effusion. No pneumothorax. Heart/Mediastinum: Unremarkable. No cardiomegaly. Bones/joints: Status post median sternotomy. Degenerative changes. IMPRESSION: 1. Distal portion of NG tube in gastric lumen. 2. Small infiltrates or areas of subsegmental atelectasis in each lung. 3. There may be small left pleural effusion. Dictated and Authenticated by: Jose Steele MD. Ordering:PAYTON Ryan MD
[2020-05-07] MEDS: Normal Saline 1,000 ML 250 ML IV (04:26)
[2020-05-07] MEDS: Hydrocortisone SOD SUC. 100 MG VIAL 50 MG IVP ×3 (05:30→13:22)
[2020-05-07] MEDS: metroNIDAZOLE 500 MG/100 ML BAG 100 MG IVPB ×3 (05:33→13:23)
[2020-05-07 06:28] LABS: Lactate 2.3 mmol/L (0.6-1.4)
[2020-05-07 06:35] LABS: Abs Immature Grans 0.23 k/cumm (0.0-0.09); HCT 31.7 % (40.0-50.0); HGB 9.7 g/dL (13.5-17.5); Mean Corp. HGB Concentration 30.6 g/dL (32.0-36.0); Mean Corpuscular Hemoglobin 23.7 pg (27.0-33.0); Mean Corpuscular Volume 77.5 fL (80-95); RBC 4.09 m/cumm (4.50-6.00); RBC Distribution Width 28.5 % (11.8-14.1); White Blood Cell Count 12.29 k/cumm (4.4-10.8)
[2020-05-07 06:44] LABS: ALT 18 U/L (16-63); AST 33 U/L (15-37); Albumin 2.4 g/dL (3.4-5.0); Alkaline Phosphatase 63 U/L (46-116); Anion Gap 14.4 mmol/L (3-11); BUN 43 mg/dL (7-18); Bilirubin, Total 1.9 mg/dL (0.2-1.0); C-Reactive Protein 21.53 mg/dL (0.0-0.3); CO2 16.6 mmol/L (21.0-32.0); CREATININE 3.16 mg/dL (0.70-1.30); Calcium 7.2 mg/dL (8.5-10.1); Chloride 105 mmol/L (98-107); Estimated GFR 19.42 (mL/min/1.73m2); Glucose 149 mg/dL (74-106); Magnesium 1.2 mg/dL (1.8-2.4); Potassium 3.9 mmol/L (3.5-5.1); Sodium 136 mmol/L (136-145); Total Protein 5.4 g/dL (6.4-8.2); Troponin I 0.05 ng/mL (<0.06)
[2020-05-07 07:05] LABS: INR 1.5 (0.9-1.1); Prothrombin Time 14.7 sec (9.3-11.0)
[2020-05-07 07:06] LABS: D-Dimer 5645 ng/mlFEU (<500)
[2020-05-07 07:08] LABS: Ferritin 496 ng/mL (26-388)
[2020-05-07 07:46] LABS: Platelet Count 139 x1000/uL (130-400)
[2020-05-07 07:47] LABS: Absolute Basophil Count 0.12 k/cumm (0.0-0.2); Absolute Lymphocyte Count 0.49 k/cumm (1.2-3.4); Absolute Neutrophil Count 9.83 k/cumm (1.2-6.7); Atypical Lymphocytes % 1
[2020-05-07 07:48] LABS: Anisocytosis 3+; Diff Comment Manual Differential; Nucleated RBC 3 /100WBC
[2020-05-07 07:49] LABS: Hypochromasia 2+; Microcytosis 2+; Polychromasia Present
[2020-05-07 07:50] LABS: Poikilocytes 3+
[2020-05-07 08:13] LABS: COVID-19 RT-PCR UVMMC Result Negative (Negative)
--- NOTE | 2020-05-07 08:25 | NUR.NOTE ---
Addendum entered by Ana Chicas 05/07/20 15:32: Upon further assessment of IV drip bag of Norepinephrine was labeled as 3200 mcgs of Norepi in a 250 cc bag of D5W. Pump was programmed for 4000 mcg/[place]. [place] [id number] mcg/kg/min bag or Norepinephrine. Pharmacy contacted, new order placed with correct medication. Original Note: Patient on Noreepinephrine drip at 8 mcg/minute aat 0715 this morning upon entering patient room when doing rounding when starting my shift this morning. Nursing Note:
--- NOTE | 2020-05-07 09:00 | INITIAL_ITS ---
- If Service Date Differs Date of service: 05/07/20 Time of Service: 14:11 Care Management Initial Assess REASON FOR HOSPITALIZATION:: Sepsis PAST MEDICAL HISTORY/PAST SURGICAL HISTORY:: Aplastic anemia, NSTEMI (non-ST elevated myocardial infarction), CABG x3, hernia repair. Aplastic anemia status post CABG in October 2019 who presented to the emergency department yesterday with complaints of generalized malaise fever and abdominal discomfort. His wor k-up was unrevealing and he opted for discharge to home. He returned with ongoing symptoms of fever malaise but the abdominal pain has resolved. His work-up today does show acute on chronic renal failure likely prerenal from dehydration. PREVIOUS FUNCTIONAL STATUS/SOCIAL/FAMILY SUPPORTS:: Duke resides in [place], with his , Lucila. He is independent at baseline in the community. CURRENT FUNCTIONAL STATUS:: Duke ADVANCE DIRECTIVES:: None on file at [facility]. Has patient been provided with info about the portal/API?: Yes Did the patient sign up for the portal?: No CODE STATUS:: DNR/DNI INSURANCE COVERAGE / FINANCIAL ISSUES:: Medicare. [facility] CURRENT HOME/COMMUNITY SERVICES/EQUIPMENT:: No current services or equipment. PRIMARY CARE PHYSICIAN:: Lizbeth Li POTENTIAL DISCHARGE NEEDS:: Evaluation for further discharge needs, follow up appointment with PCP. PATIENT/FAMILY EDUCATION NEEDS:: Review of discharge instructions, discuss Ask Me [employer]. ANTICIPATED BARRIERS TO DISCHARGE:: None identified at this time. TRANSPORTATION:: Via private vehicle with family. PLAN:: Duke continues to be closely monitored in the ICU. Anticipate he will return home when ready per MD, and transport via private vehicle with family. CM continues to follow.
[2020-05-07] MEDS: MAGNESIUM SULFATE 2 GM/50 ML BAG IVPB (09:01)
[2020-05-07 10:22] LABS: Bilirubin Negative (Negative); Blood Moderate (Negative); Clarity Sl Cloudy (Clear); Glucose Negative (Negative); Ketones Negative (Negative); Leukocyte Esterase Negative (Negative); Nitrite Negative (Negative); Urobilinogen 0.2 EU/dL (Up TO 0.2); pH 5.5 (5-8)
[2020-05-07 10:28] LABS: Lactate 2.5 mmol/L (0.6-1.4)
[2020-05-07 10:33] LABS: Bacteria Few HPF (Negative); Crystals Few Amorphous HPF (Negative); Epithelial Cells Rare HPF (Negative); Mucus Trace (Negative); Other Cells Rare Renal (Negative); WBC 0-2 HPF (0-5)
[2020-05-07 10:34] LABS: C & S Indicated? No
[2020-05-07] MEDS: Normal Saline 1,000 ML 150 ML IV (11:03)
--- NOTE | 2020-05-07 11:06 | PGE_ITS ---
Date of Service Date of service: 05/07/20 Time of Service: 07:15 Assessment and Plan Assessment and plan (1) Colitis: Status: Acute Assessment and plan: His heart rate and BP have improved overnight allowing the norepinephrine to be weaned. Stool cultures show C diff antigen. Patient has been started on Flagyl His abdominal exam is stable. No indication for surgical intervention at this time. Would leave NG for today to minimize changes but if remains low output, could remove tomorrow Gallbladder US pending Patient signed out to Dr. Larson Subjective Subjective Interval history since last seen: Patient reports he feels slightly better today. Having some bilateral lower abdominal discomfort. Had loose stool last night as well NG placed with minimal output Exam Narrative Exam Narrative: Alert NG output minimal, dark Abdomen soft. Stable moderate tenderness in bilateral lower quadrants. No generalized peritonitis Objective Objective Clinical Data: Abnormal lab results 05/06/20 05/06/20 05/06/20 Range/Units 12:40 12:40 12:40 WBC (4.4-10.8) k/cumm RBC (4.50-6.00) m/cumm Hgb 11.0 L (13.5-17.5) g/dL Hct 35.8 L (40.0-50.0) % MCV 78.2 L (80-95) fL MCH 24.0 L (27.0-33.0) pg MCHC 30.7 L (32.0-36.0) g/dL RDW 29.1 H (11.8-14.1) % Absolute Neutrophils (1.2-6.7) k/cumm Absolute Lymphocytes (1.2-3.4) k/cumm Absolute Monocytes 1.87 H (0.11-0.7) k/cumm PT (9.3-11.0) sec INR (0.9-1.1) D-Dimer (<500) ng/mlFEU ABG pCO2 (34-47) mmHg ABG pO2 (83-108) mmHg ABG HCO3 (22-28) mmol/L ABG Total CO2 (22-29) mmol/L ABG O2 Saturation (94-98) % ABG Base Excess (-3-3) mmol/L VBG O2 Saturation (70-80) % Sodium 134 L (136-145) mmol/L Carbon Dioxide (21.0-32.0) mmol/L Anion Gap 11.4 H (3-11) mmol/L BUN 28 H (7-18) mg/dL Creatinine 2.13 H (0.70-1.30) mg/dL Glucose 129 H (74-106) mg/dL Lactate (0.6-1.4) mmol/L Calcium (8.5-10.1) mg/dL Magnesium (1.8-2.4) mg/dL Ferritin (26-388) ng/mL Total Bilirubin 2.7 H (0.2-1.0) mg/dL Ammonia < 10 L (11-32) umol/L Lactate Dehydrogenase (85-227) U/L C-Reactive Protein (0.0-0.3) mg/dL Total Protein (6.4-8.2) g/dL Albumin (3.4-5.0) g/dL Urine Protein (Negative) mg/dL Urine Ketones (Negative) mg/dL Urine Blood (Negative) Urine Bilirubin (Negative) Urine RBC (0-2) HPF 05/06/20 05/06/20 05/06/20 Range/Units 12:40 12:40 12:40 WBC (4.4-10.8) k/cumm RBC (4.50-6.00) m/cumm Hgb (13.5-17.5) g/dL Hct (40.0-50.0) % MCV (80-95) fL MCH (27.0-33.0) pg MCHC (32.0-36.0) g/dL RDW (11.8-14.1) % Absolute Neutrophils (1.2-6.7) k/cumm Absolute Lymphocytes (1.2-3.4) k/cumm Absolute Monocytes (0.11-0.7) k/cumm PT (9.3-11.0) sec INR (0.9-1.1) D-Dimer 2610 H (<500) ng/mlFEU ABG pCO2 (34-47) mmHg ABG pO2 (83-108) mmHg ABG HCO3 (22-28) mmol/L ABG Total CO2 (22-29) mmol/L ABG O2 Saturation (94-98) % ABG Base Excess (-3-3) mmol/L VBG O2 Saturation 59 L (70-80) % Sodium (136-145) mmol/L Carbon Dioxide (21.0-32.0) mmol/L Anion Gap (3-11) mmol/L BUN (7-18) mg/dL Creatinine (0.70-1.30) mg/dL Glucose (74-106) mg/dL Lactate (0.6-1.4) mmol/L Calcium (8.5-10.1) mg/dL Magnesium (1.8-2.4) mg/dL Ferritin (26-388) ng/mL Total Bilirubin (0.2-1.0) mg/dL Ammonia (11-32) umol/L Lactate Dehydrogenase 331 H (85-227) U/L C-Reactive Protein 19.02 H (0.0-0.3) mg/dL Total Protein (6.4-8.2) g/dL Albumin (3.4-5.0) g/dL Urine Protein (Negative) mg/dL Urine Ketones (Negative) mg/dL Urine Blood (Negative) Urine Bilirubin (Negative) Urine RBC (0-2) HPF 05/06/20 05/06/20 05/06/20 Range/Units 13:30 18:03 18:42 WBC (4.4-10.8) k/cumm RBC (4.50-6.00) m/cumm Hgb (13.5-17.5) g/dL Hct (40.0-50.0) % MCV (80-95) fL MCH (27.0-33.0) pg MCHC (32.0-36.0) g/dL RDW (11.8-14.1) % Absolute Neutrophils (1.2-6.7) k/cumm Absolute Lymphocytes (1.2-3.4) k/cumm Absolute Monocytes (0.11-0.7) k/cumm PT (9.3-11.0) sec INR (0.9-1.1) D-Dimer (<500) ng/mlFEU ABG pCO2 25 L (34-47) mmHg ABG pO2 58 L (83-108) mmHg ABG HCO3 17 L (22-28) mmol/L ABG Total CO2 16 L (22-29) mmol/L ABG O2 Saturation 91 L (94-98) % ABG Base Excess -7.0 L (-3-3) mmol/L VBG O2 Saturation (70-80) % Sodium (136-145) mmol/L Carbon Dioxide (21.0-32.0) mmol/L Anion Gap (3-11) mmol/L BUN (7-18) mg/dL Creatinine (0.70-1.30) mg/dL Glucose (74-106) mg/dL Lactate 1.9 H 1.6 H (0.6-1.4) mmol/L Calcium (8.5-10.1) mg/dL Magnesium (1.8-2.4) mg/dL Ferritin (26-388) ng/mL Total Bilirubin (0.2-1.0) mg/dL Ammonia (11-32) umol/L Lactate Dehydrogenase (85-227) U/L C-Reactive Protein (0.0-0.3) mg/dL Total Protein (6.4-8.2) g/dL Albumin (3.4-5.0) g/dL Urine Protein (Negative) mg/dL Urine Ketones (Negative) mg/dL Urine Blood (Negative) Urine Bilirubin (Negative) Urine RBC (0-2) HPF 05/06/20 05/07/20 05/07/20 Range/Units 21:45 00:30 06:12 WBC (4.4-10.8) k/cumm RBC (4.50-6.00) m/cumm Hgb (13.5-17.5) g/dL Hct (40.0-50.0) % MCV (80-95) fL MCH (27.0-33.0) pg MCHC (32.0-36.0) g/dL RDW (11.8-14.1) % Absolute Neutrophils (1.2-6.7) k/cumm Absolute Lymphocytes (1.2-3.4) k/cumm Absolute Monocytes (0.11-0.7) k/cumm PT (9.3-11.0) sec INR (0.9-1.1) D-Dimer (<500) ng/mlFEU ABG pCO2 (34-47) mmHg ABG pO2 (83-108) mmHg ABG HCO3 (22-28) mmol/L ABG Total CO2 (22-29) mmol/L ABG O2 Saturation (94-98) % ABG Base Excess (-3-3) mmol/L VBG O2 Saturation (70-80) % Sodium (136-145) mmol/L Carbon Dioxide 16.6 L (21.0-32.0) mmol/L Anion Gap 14.4 H (3-11) mmol/L BUN 43 H D (7-18) mg/dL Creatinine 3.16 H D (0.70-1.30) mg/dL Glucose 149 H (74-106) mg/dL Lactate 3.3 H* (0.6-1.4) mmol/L Calcium 7.2 L (8.5-10.1) mg/dL Magnesium 1.2 L (1.8-2.4) mg/dL Ferritin 496 H (26-388) ng/mL Total Bilirubin 1.9 H (0.2-1.0) mg/dL Ammonia (11-32) umol/L Lactate Dehydrogenase (85-227) U/L C-Reactive Protein 21.53 H (0.0-0.3) mg/dL Total Protein 5.4 L (6.4-8.2) g/dL Albumin 2.4 L (3.4-5.0) g/dL Urine Protein 100 H (Negative) mg/dL Urine Ketones Trace H (Negative) mg/dL Urine Blood Large H (Negative) Urine Bilirubin Small H (Negative) Urine RBC >50 H (0-2) HPF 05/07/20 05/07/20 05/07/20 Range/Units 06:12 06:12 06:12 WBC 12.29 H D (4.4-10.8) k/cumm RBC 4.09 L (4.50-6.00) m/cumm Hgb 9.7 L (13.5-17.5) g/dL Hct 31.7 L (40.0-50.0) % MCV 77.5 L (80-95) fL MCH 23.7 L (27.0-33.0) pg MCHC 30.6 L (32.0-36.0) g/dL RDW 28.5 H (11.8-14.1) % Absolute Neutrophils 9.83 H (1.2-6.7) k/cumm Absolute Lymphocytes 0.49 L (1.2-3.4) k/cumm Absolute Monocytes 1.60 H (0.11-0.7) k/cumm PT 14.7 H (9.3-11.0) sec INR 1.5 H (0.9-1.1) D-Dimer 5645 H (<500) ng/mlFEU ABG pCO2 (34-47) mmHg ABG pO2 (83-108) mmHg ABG HCO3 (22-28) mmol/L ABG Total CO2 (22-29) mmol/L ABG O2 Saturation (94-98) % ABG Base Excess (-3-3) mmol/L VBG O2 Saturation (70-80) % Sodium (136-145) mmol/L Carbon Dioxide (21.0-32.0) mmol/L Anion Gap (3-11) mmol/L BUN (7-18) mg/dL Creatinine (0.70-1.30) mg/dL Glucose (74-106) mg/dL Lactate 2.3 H* (0.6-1.4) mmol/L Calcium (8.5-10.1) mg/dL Magnesium (1.8-2.4) mg/dL Ferritin (26-388) ng/mL Total Bilirubin (0.2-1.0) mg/dL Ammonia (11-32) umol/L Lactate Dehydrogenase (85-227) U/L C-Reactive Protein (0.0-0.3) mg/dL Total Protein (6.4-8.2) g/dL Albumin (3.4-5.0) g/dL Urine Protein (Negative) mg/dL Urine Ketones (Negative) mg/dL Urine Blood (Negative) Urine Bilirubin (Negative) Urine RBC (0-2) HPF 05/07/20 05/07/20 Range/Units 10:00 10:10 WBC (4.4-10.8) k/cumm RBC (4.50-6.00) m/cumm Hgb (13.5-17.5) g/dL Hct (40.0-50.0) % MCV (80-95) fL MCH (27.0-33.0) pg MCHC (32.0-36.0) g/dL RDW (11.8-14.1) % Absolute Neutrophils (1.2-6.7) k/cumm Absolute Lymphocytes (1.2-3.4) k/cumm Absolute Monocytes (0.11-0.7) k/cumm PT (9.3-11.0) sec INR (0.9-1.1) D-Dimer (<500) ng/mlFEU ABG pCO2 (34-47) mmHg ABG pO2 (83-108) mmHg ABG HCO3 (22-28) mmol/L ABG Total CO2 (22-29) mmol/L ABG O2 Saturation (94-98) % ABG Base Excess (-3-3) mmol/L VBG O2 Saturation (70-80) % Sodium (136-145) mmol/L Carbon Dioxide (21.0-32.0) mmol/L Anion Gap (3-11) mmol/L BUN (7-18) mg/dL Creatinine (0.70-1.30) mg/dL Glucose (74-106) mg/dL Lactate 2.5 H* (0.6-1.4) mmol/L Calcium (8.5-10.1) mg/dL Magnesium (1.8-2.4) mg/dL Ferritin (26-388) ng/mL Total Bilirubin (0.2-1.0) mg/dL Ammonia (11-32) umol/L Lactate Dehydrogenase (85-227) U/L C-Reactive Protein (0.0-0.3) mg/dL Total Protein (6.4-8.2) g/dL Albumin (3.4-5.0) g/dL Urine Protein 100 H (Negative) mg/dL Urine Ketones (Negative) mg/dL Urine Blood Moderate H (Negative) Urine Bilirubin (Negative) Urine RBC 3-5 H (0-2) HPF Vital Signs Temperature 97.9 F 05/07/20 07:35 Temperature Source Temporal Artery Scan 05/07/20 07:35 Pulse 98 H 05/07/20 10:30 Pulse 97 H 05/07/20 10:30 Respiratory Rate 31 H 05/07/20 10:30 Respiratory Effort Non-Labored 05/07/20 07:35 Respiratory Depth Normal 05/07/20 07:35 Respiratory Pattern Tachypnea 05/07/20 07:35 Blood Pressure 100/58 L 05/07/20 10:30 Blood Pressure Mean 69 05/07/20 10:30 Blood Pressure Position Supine 05/07/20 07:35 Pulse Oximetry 94 L 05/07/20 10:30 Oxygen Delivery Method Room Air 05/07/20 08:15 Oxygen Flow Rate 0 05/07/20 08:15 Pain Level 0 05/07/20 04:00 Intake & Output 05/06/20 05/06/20 05/07/20 11:59 23:59 11:59 Intake Total 3763.193 / 3763.193 2977.428 / 2977.428 Output Total 115 / 115 400 / 400 Balance 3648.193 / 3648.193 2577.428 / 2577.428 Weight 201 lb 8.04 oz 201 lb 8.04 oz Intake: IV 3763.193 / 3763.193 2977.428 / 2977.428 Output: Gastric Drainage 150 / 150 Left Nare 150 / 150 Urine 115 / 115 250 / 250 Other: Urine Color Dark Jake Straw Urine Appearance Cloudy Cloudy Comment urometer added Randle Catheter intact and draining light jake clear urine with sediment. Gastric Occult Blood Left Nare Negative Laboratory Results WBC 12.29 k/cumm (4.4-10.8) H D 05/07/20 06:12 RBC 4.09 m/cumm (4.50-6.00) L 05/07/20 06:12 Hgb 9.7 g/dL (13.5-17.5) L 05/07/20 06:12 Hct 31.7 % (40.0-50.0) L 05/07/20 06:12 MCV 77.5 fL (80-95) L 05/07/20 06:12 MCH 23.7 pg (27.0-33.0) L 05/07/20 06:12 MCHC 30.6 g/dL (32.0-36.0) L 05/07/20 06:12 RDW 28.5 % (11.8-14.1) H 05/07/20 06:12 Plt Count 139 x1000/uL (130-400) 05/07/20 06:12 MPV fL (8.0-11.0) 05/07/20 06:12 Immature Gran % See Differential 05/07/20 06:12 Neutrophils % 36.0 05/07/20 06:12 Band Neutrophils % 44.0 % 05/07/20 06:12 Lymphocytes % 3.0 05/07/20 06:12 Atypical Lymphs % 1 05/07/20 06:12 Monocytes % 13.0 05/07/20 06:12 Eosinophils % 0.0 05/07/20 06:12 Basophils % 1.0 05/07/20 06:12 Metamyelocytes % 2.0 % 05/07/20 06:12 Absolute Neutrophils 9.83 k/cumm (1.2-6.7) H 05/07/20 06:12 Absolute Lymphocytes 0.49 k/cumm (1.2-3.4) L 05/07/20 06:12 Absolute Monocytes 1.60 k/cumm (0.11-0.7) H 05/07/20 06:12 Absolute Eosinophils 0.00 k/cumm (0.0-0.7) 05/07/20 06:12 Absolute Basophils 0.12 k/cumm (0.0-0.2) 05/07/20 06:12 Nucleated RBCs 3 /100WBC 05/07/20 06:12 Differential Comment Manual differential 05/07/20 06:12 RBC Morphology See below 05/07/20 06:12 Polychromasia Present 05/07/20 06:12 Hypochromasia 2+ 05/07/20 06:12 Poikilocytosis 3+ 05/07/20 06:12 Anisocytosis 3+ 05/07/20 06:12 Microcytosis 2+ 05/07/20 06:12 PT 14.7 sec (9.3-11.0) H 05/07/20 06:12 INR 1.5 (0.9-1.1) H 05/07/20 06:12 D-Dimer 5645 ng/mlFEU (<500) H 05/07/20 06:12 ABG Sample Site Right radial 05/06/20 18:42 ABG pH 7.45 (7.35-7.45) 05/06/20 18:42 ABG pCO2 25 mmHg (34-47) L 05/06/20 18:42 ABG pO2 58 mmHg (83-108) L 05/06/20 18:42 ABG HCO3 17 mmol/L (22-28) L 05/06/20 18:42 ABG Total CO2 16 mmol/L (22-29) L 05/06/20 18:42 ABG O2 Saturation 91 % (94-98) L 05/06/20 18:42 ABG Base Excess -7.0 mmol/L (-3-3) L 05/06/20 18:42 VBG pH 7.39 (7.35-7.45) 05/06/20 12:40 VBG pCO2 38 mm/Hg (34-47) 05/06/20 12:40 VBG pO2 31 mm/Hg (28-44) 05/06/20 12:40 VBG HCO3 23 mmol/L (22-28) 05/06/20 12:40 VBG Total CO2 22 mmol/L (22-29) 05/06/20 12:40 VBG O2 Saturation 59 % (70-80) L 05/06/20 12:40 VBG Base Excess -1.7 mmol/L (-3-3) 05/06/20 12:40 Oxygen Liter Flow Cancelled 05/06/20 17:11 FiO2 21 % 05/06/20 18:42 Sodium 136 mmol/L (136-145) 05/07/20 06:12 Potassium 3.9 mmol/L (3.5-5.1) 05/07/20 06:12 Chloride 105 mmol/L (98-107) 05/07/20 06:12 Carbon Dioxide 16.6 mmol/L (21.0-32.0) L 05/07/20 06:12 Anion Gap 14.4 mmol/L (3-11) H 05/07/20 06:12 BUN 43 mg/dL (7-18) H D 05/07/20 06:12 Creatinine 3.16 mg/dL (0.70-1.30) H D 05/07/20 06:12 Estimated GFR/1.73 m2 19.42 (mL/min/1.73m2) 05/07/20 06:12 Glucose 149 mg/dL (74-106) H 05/07/20 06:12 Lactate 2.5 mmol/L (0.6-1.4) H* 05/07/20 10:10 Calcium 7.2 mg/dL (8.5-10.1) L 05/07/20 06:12 Magnesium 1.2 mg/dL (1.8-2.4) L 05/07/20 06:12 Ferritin 496 ng/mL (26-388) H 05/07/20 06:12 Total Bilirubin 1.9 mg/dL (0.2-1.0) H 05/07/20 06:12 AST 33 U/L (15-37) 05/07/20 06:12 ALT 18 U/L (16-63) 05/07/20 06:12 Alkaline Phosphatase 63 U/L (46-116) 05/07/20 06:12 Ammonia < 10 umol/L (11-32) L 05/06/20 12:40 Lactate Dehydrogenase 331 U/L (85-227) H 05/06/20 12:40 Troponin I 0.05 ng/mL (<0.06) 05/07/20 06:12 C-Reactive Protein 21.53 mg/dL (0.0-0.3) H 05/07/20 06:12 Total Protein 5.4 g/dL (6.4-8.2) L 05/07/20 06:12 Albumin 2.4 g/dL (3.4-5.0) L 05/07/20 06:12 Procalcitonin 7.9 ng/mL 05/06/20 12:40 TSH 0.54 uIU/mL (0.36-3.74) 05/06/20 12:40 Urine Color Yellow (Yellow) 05/07/20 10:00 Urine Clarity Sl cloudy (Clear) 05/07/20 10:00 Urine pH 5.5 (5-8) 05/07/20 10:00 Ur Specific [place] 1.020 (1.005-1.025) 05/07/20 10:00 Urine Protein 100 mg/dL (Negative) H 05/07/20 10:00 Urine Ketones Negative mg/dL (Negative) 05/07/20 10:00 Urine Blood Moderate (Negative) H 05/07/20 10:00 Urine Nitrite Negative (Negative) 05/07/20 10:00 Urine Bilirubin Negative (Negative) 05/07/20 10:00 Urine Urobilinogen 0.2 EU/dL (Up TO 0.2) 05/07/20 10:00 Ur Leukocyte Esterase Negative (Negative) 05/07/20 10:00 Urine RBC 3-5 HPF (0-2) H 05/07/20 10:00 Urine WBC 0-2 HPF (0-5) 05/07/20 10:00 Ur Epithelial Cells Rare HPF (Negative) 05/07/20 10:00 Urine Crystals Few amorphous HPF (Negative) 05/07/20 10:00 Urine Bacteria Few HPF (Negative) 05/07/20 10:00 Urine Casts 10-20 coarsegranular LPF (Negative) 05/07/20 10:00 Urine Mucus Trace (Negative) 05/07/20 10:00 Urine Other Rare renal (Negative) 05/07/20 10:00 Ur Culture Indicated? No 05/07/20 10:00 Urine Glucose Negative mg/dL (Negative) 05/07/20 10:00 COVID-19 PCR Negative (Negative) 05/06/20 12:40 Nasopharyn COVID-19 PCR Not Applicable 05/06/20 12:40 [facility] 05/06/[facility] 12:40
[2020-05-07] MEDS: DOXYCYCLINE 100 MG in Normal Saline 100 ML IVPB (11:14)
--- NOTE | 2020-05-07 11:53 | PGE_ITS ---
Date of Service Date of service: 05/07/20 Time of Service: 11:53 Objective Objective Clinical Data: Abnormal lab results 05/06/20 05/06/20 05/06/20 Range/Units 12:40 12:40 12:40 WBC (4.4-10.8) k/cumm RBC (4.50-6.00) m/cumm Hgb 11.0 L (13.5-17.5) g/dL Hct 35.8 L (40.0-50.0) % MCV 78.2 L (80-95) fL MCH 24.0 L (27.0-33.0) pg MCHC 30.7 L (32.0-36.0) g/dL RDW 29.1 H (11.8-14.1) % Absolute Neutrophils (1.2-6.7) k/cumm Absolute Lymphocytes (1.2-3.4) k/cumm Absolute Monocytes 1.87 H (0.11-0.7) k/cumm PT (9.3-11.0) sec INR (0.9-1.1) D-Dimer (<500) ng/mlFEU ABG pCO2 (34-47) mmHg ABG pO2 (83-108) mmHg ABG HCO3 (22-28) mmol/L ABG Total CO2 (22-29) mmol/L ABG O2 Saturation (94-98) % ABG Base Excess (-3-3) mmol/L VBG O2 Saturation (70-80) % Sodium 134 L (136-145) mmol/L Carbon Dioxide (21.0-32.0) mmol/L Anion Gap 11.4 H (3-11) mmol/L BUN 28 H (7-18) mg/dL Creatinine 2.13 H (0.70-1.30) mg/dL Glucose 129 H (74-106) mg/dL Lactate (0.6-1.4) mmol/L Calcium (8.5-10.1) mg/dL Magnesium (1.8-2.4) mg/dL Ferritin (26-388) ng/mL Total Bilirubin 2.7 H (0.2-1.0) mg/dL Ammonia < 10 L (11-32) umol/L Lactate Dehydrogenase (85-227) U/L C-Reactive Protein (0.0-0.3) mg/dL Total Protein (6.4-8.2) g/dL Albumin (3.4-5.0) g/dL Urine Protein (Negative) mg/dL Urine Ketones (Negative) mg/dL Urine Blood (Negative) Urine Bilirubin (Negative) Urine RBC (0-2) HPF 05/06/20 05/06/20 05/06/20 Range/Units 12:40 12:40 12:40 WBC (4.4-10.8) k/cumm RBC (4.50-6.00) m/cumm Hgb (13.5-17.5) g/dL Hct (40.0-50.0) % MCV (80-95) fL MCH (27.0-33.0) pg MCHC (32.0-36.0) g/dL RDW (11.8-14.1) % Absolute Neutrophils (1.2-6.7) k/cumm Absolute Lymphocytes (1.2-3.4) k/cumm Absolute Monocytes (0.11-0.7) k/cumm PT (9.3-11.0) sec INR (0.9-1.1) D-Dimer 2610 H (<500) ng/mlFEU ABG pCO2 (34-47) mmHg ABG pO2 (83-108) mmHg ABG HCO3 (22-28) mmol/L ABG Total CO2 (22-29) mmol/L ABG O2 Saturation (94-98) % ABG Base Excess (-3-3) mmol/L VBG O2 Saturation 59 L (70-80) % Sodium (136-145) mmol/L Carbon Dioxide (21.0-32.0) mmol/L Anion Gap (3-11) mmol/L BUN (7-18) mg/dL Creatinine (0.70-1.30) mg/dL Glucose (74-106) mg/dL Lactate (0.6-1.4) mmol/L Calcium (8.5-10.1) mg/dL Magnesium (1.8-2.4) mg/dL Ferritin (26-388) ng/mL Total Bilirubin (0.2-1.0) mg/dL Ammonia (11-32) umol/L Lactate Dehydrogenase 331 H (85-227) U/L C-Reactive Protein 19.02 H (0.0-0.3) mg/dL Total Protein (6.4-8.2) g/dL Albumin (3.4-5.0) g/dL Urine Protein (Negative) mg/dL Urine Ketones (Negative) mg/dL Urine Blood (Negative) Urine Bilirubin (Negative) Urine RBC (0-2) HPF 05/06/20 05/06/20 05/06/20 Range/Units 13:30 18:03 18:42 WBC (4.4-10.8) k/cumm RBC (4.50-6.00) m/cumm Hgb (13.5-17.5) g/dL Hct (40.0-50.0) % MCV (80-95) fL MCH (27.0-33.0) pg MCHC (32.0-36.0) g/dL RDW (11.8-14.1) % Absolute Neutrophils (1.2-6.7) k/cumm Absolute Lymphocytes (1.2-3.4) k/cumm Absolute Monocytes (0.11-0.7) k/cumm PT (9.3-11.0) sec INR (0.9-1.1) D-Dimer (<500) ng/mlFEU ABG pCO2 25 L (34-47) mmHg ABG pO2 58 L (83-108) mmHg ABG HCO3 17 L (22-28) mmol/L ABG Total CO2 16 L (22-29) mmol/L ABG O2 Saturation 91 L (94-98) % ABG Base Excess -7.0 L (-3-3) mmol/L VBG O2 Saturation (70-80) % Sodium (136-145) mmol/L Carbon Dioxide (21.0-32.0) mmol/L Anion Gap (3-11) mmol/L BUN (7-18) mg/dL Creatinine (0.70-1.30) mg/dL Glucose (74-106) mg/dL Lactate 1.9 H 1.6 H (0.6-1.4) mmol/L Calcium (8.5-10.1) mg/dL Magnesium (1.8-2.4) mg/dL Ferritin (26-388) ng/mL Total Bilirubin (0.2-1.0) mg/dL Ammonia (11-32) umol/L Lactate Dehydrogenase (85-227) U/L C-Reactive Protein (0.0-0.3) mg/dL Total Protein (6.4-8.2) g/dL Albumin (3.4-5.0) g/dL Urine Protein (Negative) mg/dL Urine Ketones (Negative) mg/dL Urine Blood (Negative) Urine Bilirubin (Negative) Urine RBC (0-2) HPF 05/06/20 05/07/20 05/07/20 Range/Units 21:45 00:30 06:12 WBC (4.4-10.8) k/cumm RBC (4.50-6.00) m/cumm Hgb (13.5-17.5) g/dL Hct (40.0-50.0) % MCV (80-95) fL MCH (27.0-33.0) pg MCHC (32.0-36.0) g/dL RDW (11.8-14.1) % Absolute Neutrophils (1.2-6.7) k/cumm Absolute Lymphocytes (1.2-3.4) k/cumm Absolute Monocytes (0.11-0.7) k/cumm PT (9.3-11.0) sec INR (0.9-1.1) D-Dimer (<500) ng/mlFEU ABG pCO2 (34-47) mmHg ABG pO2 (83-108) mmHg ABG HCO3 (22-28) mmol/L ABG Total CO2 (22-29) mmol/L ABG O2 Saturation (94-98) % ABG Base Excess (-3-3) mmol/L VBG O2 Saturation (70-80) % Sodium (136-145) mmol/L Carbon Dioxide 16.6 L (21.0-32.0) mmol/L Anion Gap 14.4 H (3-11) mmol/L BUN 43 H D (7-18) mg/dL Creatinine 3.16 H D (0.70-1.30) mg/dL Glucose 149 H (74-106) mg/dL Lactate 3.3 H* (0.6-1.4) mmol/L Calcium 7.2 L (8.5-10.1) mg/dL Magnesium 1.2 L (1.8-2.4) mg/dL Ferritin 496 H (26-388) ng/mL Total Bilirubin 1.9 H (0.2-1.0) mg/dL Ammonia (11-32) umol/L Lactate Dehydrogenase (85-227) U/L C-Reactive Protein 21.53 H (0.0-0.3) mg/dL Total Protein 5.4 L (6.4-8.2) g/dL Albumin 2.4 L (3.4-5.0) g/dL Urine Protein 100 H (Negative) mg/dL Urine Ketones Trace H (Negative) mg/dL Urine Blood Large H (Negative) Urine Bilirubin Small H (Negative) Urine RBC >50 H (0-2) HPF 05/07/20 05/07/20 05/07/20 Range/Units 06:12 06:12 06:12 WBC 12.29 H D (4.4-10.8) k/cumm RBC 4.09 L (4.50-6.00) m/cumm Hgb 9.7 L (13.5-17.5) g/dL Hct 31.7 L (40.0-50.0) % MCV 77.5 L (80-95) fL MCH 23.7 L (27.0-33.0) pg MCHC 30.6 L (32.0-36.0) g/dL RDW 28.5 H (11.8-14.1) % Absolute Neutrophils 9.83 H (1.2-6.7) k/cumm Absolute Lymphocytes 0.49 L (1.2-3.4) k/cumm Absolute Monocytes 1.60 H (0.11-0.7) k/cumm PT 14.7 H (9.3-11.0) sec INR 1.5 H (0.9-1.1) D-Dimer 5645 H (<500) ng/mlFEU ABG pCO2 (34-47) mmHg ABG pO2 (83-108) mmHg ABG HCO3 (22-28) mmol/L ABG Total CO2 (22-29) mmol/L ABG O2 Saturation (94-98) % ABG Base Excess (-3-3) mmol/L VBG O2 Saturation (70-80) % Sodium (136-145) mmol/L Carbon Dioxide (21.0-32.0) mmol/L Anion Gap (3-11) mmol/L BUN (7-18) mg/dL Creatinine (0.70-1.30) mg/dL Glucose (74-106) mg/dL Lactate 2.3 H* (0.6-1.4) mmol/L Calcium (8.5-10.1) mg/dL Magnesium (1.8-2.4) mg/dL Ferritin (26-388) ng/mL Total Bilirubin (0.2-1.0) mg/dL Ammonia (11-32) umol/L Lactate Dehydrogenase (85-227) U/L C-Reactive Protein (0.0-0.3) mg/dL Total Protein (6.4-8.2) g/dL Albumin (3.4-5.0) g/dL Urine Protein (Negative) mg/dL Urine Ketones (Negative) mg/dL Urine Blood (Negative) Urine Bilirubin (Negative) Urine RBC (0-2) HPF 05/07/20 05/07/20 Range/Units 10:00 10:10 WBC (4.4-10.8) k/cumm RBC (4.50-6.00) m/cumm Hgb (13.5-17.5) g/dL Hct (40.0-50.0) % MCV (80-95) fL MCH (27.0-33.0) pg MCHC (32.0-36.0) g/dL RDW (11.8-14.1) % Absolute Neutrophils (1.2-6.7) k/cumm Absolute Lymphocytes (1.2-3.4) k/cumm Absolute Monocytes (0.11-0.7) k/cumm PT (9.3-11.0) sec INR (0.9-1.1) D-Dimer (<500) ng/mlFEU ABG pCO2 (34-47) mmHg ABG pO2 (83-108) mmHg ABG HCO3 (22-28) mmol/L ABG Total CO2 (22-29) mmol/L ABG O2 Saturation (94-98) % ABG Base Excess (-3-3) mmol/L VBG O2 Saturation (70-80) % Sodium (136-145) mmol/L Carbon Dioxide (21.0-32.0) mmol/L Anion Gap (3-11) mmol/L BUN (7-18) mg/dL Creatinine (0.70-1.30) mg/dL Glucose (74-106) mg/dL Lactate 2.5 H* (0.6-1.4) mmol/L Calcium (8.5-10.1) mg/dL Magnesium (1.8-2.4) mg/dL Ferritin (26-388) ng/mL Total Bilirubin (0.2-1.0) mg/dL Ammonia (11-32) umol/L Lactate Dehydrogenase (85-227) U/L C-Reactive Protein (0.0-0.3) mg/dL Total Protein (6.4-8.2) g/dL Albumin (3.4-5.0) g/dL Urine Protein 100 H (Negative) mg/dL Urine Ketones (Negative) mg/dL Urine Blood Moderate H (Negative) Urine Bilirubin (Negative) Urine RBC 3-5 H (0-2) HPF Vital Signs Temperature 36.6 C 05/07/20 07:35 Temperature Source Temporal Artery Scan 05/07/20 07:35 Pulse 98 H 05/07/20 10:30 Pulse 97 H 05/07/20 10:30 Respiratory Rate 31 H 05/07/20 10:30 Respiratory Effort Non-Labored 05/07/20 07:35 Respiratory Depth Normal 05/07/20 07:35 Respiratory Pattern Tachypnea 05/07/20 07:35 Blood Pressure 100/58 L 05/07/20 10:30 Blood Pressure Mean 69 05/07/20 10:30 Blood Pressure Position Supine 05/07/20 07:35 Pulse Oximetry 94 L 05/07/20 10:30 Oxygen Delivery Method Room Air 05/07/20 08:15 Oxygen Flow Rate 0 05/07/20 08:15 Pain Level 0 05/07/20 04:00 Intake & Output 05/06/20 05/06/20 05/07/20 11:59 23:59 11:59 Intake Total 3763.193 / 3763.193 2977.428 / 2977.428 Output Total 115 / 115 400 / 400 Balance 3648.193 / 3648.193 2577.428 / 2577.428 Weight 91.4 kg 91.4 kg Intake: IV 3763.193 / 3763.193 2977.428 / 2977.428 Output: Gastric Drainage 150 / 150 Left Nare 150 / 150 Urine 115 / 115 250 / 250 Other: Urine Color Dark Jake Straw Urine Appearance Cloudy Cloudy Comment urometer added Randle Catheter intact and draining light jake clear urine with sediment. Gastric Occult Blood Left Nare Negative Laboratory Results WBC 12.29 k/cumm (4.4-10.8) H D 05/07/20 06:12 RBC 4.09 m/cumm (4.50-6.00) L 05/07/20 06:12 Hgb 9.7 g/dL (13.5-17.5) L 05/07/20 06:12 Hct 31.7 % (40.0-50.0) L 05/07/20 06:12 MCV 77.5 fL (80-95) L 05/07/20 06:12 MCH 23.7 pg (27.0-33.0) L 05/07/20 06:12 MCHC 30.6 g/dL (32.0-36.0) L 05/07/20 06:12 RDW 28.5 % (11.8-14.1) H 05/07/20 06:12 Plt Count 139 x1000/uL (130-400) 05/07/20 06:12 MPV fL (8.0-11.0) 05/07/20 06:12 Immature Gran % See Differential 05/07/20 06:12 Neutrophils % 36.0 05/07/20 06:12 Band Neutrophils % 44.0 % 05/07/20 06:12 Lymphocytes % 3.0 05/07/20 06:12 Atypical Lymphs % 1 05/07/20 06:12 Monocytes % 13.0 05/07/20 06:12 Eosinophils % 0.0 05/07/20 06:12 Basophils % 1.0 05/07/20 06:12 Metamyelocytes % 2.0 % 05/07/20 06:12 Absolute Neutrophils 9.83 k/cumm (1.2-6.7) H 05/07/20 06:12 Absolute Lymphocytes 0.49 k/cumm (1.2-3.4) L 05/07/20 06:12 Absolute Monocytes 1.60 k/cumm (0.11-0.7) H 05/07/20 06:12 Absolute Eosinophils 0.00 k/cumm (0.0-0.7) 05/07/20 06:12 Absolute Basophils 0.12 k/cumm (0.0-0.2) 05/07/20 06:12 Nucleated RBCs 3 /100WBC 05/07/20 06:12 Differential Comment Manual differential 05/07/20 06:12 RBC Morphology See below 05/07/20 06:12 Polychromasia Present 05/07/20 06:12 Hypochromasia 2+ 05/07/20 06:12 Poikilocytosis 3+ 05/07/20 06:12 Anisocytosis 3+ 05/07/20 06:12 Microcytosis 2+ 05/07/20 06:12 PT 14.7 sec (9.3-11.0) H 05/07/20 06:12 INR 1.5 (0.9-1.1) H 05/07/20 06:12 D-Dimer 5645 ng/mlFEU (<500) H 05/07/20 06:12 ABG Sample Site Right radial 05/06/20 18:42 ABG pH 7.45 (7.35-7.45) 05/06/20 18:42 ABG pCO2 25 mmHg (34-47) L 05/06/20 18:42 ABG pO2 58 mmHg (83-108) L 05/06/20 18:42 ABG HCO3 17 mmol/L (22-28) L 05/06/20 18:42 ABG Total CO2 16 mmol/L (22-29) L 05/06/20 18:42 ABG O2 Saturation 91 % (94-98) L 05/06/20 18:42 ABG Base Excess -7.0 mmol/L (-3-3) L 05/06/20 18:42 VBG pH 7.39 (7.35-7.45) 05/06/20 12:40 VBG pCO2 38 mm/Hg (34-47) 05/06/20 12:40 VBG pO2 31 mm/Hg (28-44) 05/06/20 12:40 VBG HCO3 23 mmol/L (22-28) 05/06/20 12:40 VBG Total CO2 22 mmol/L (22-29) 05/06/20 12:40 VBG O2 Saturation 59 % (70-80) L 05/06/20 12:40 VBG Base Excess -1.7 mmol/L (-3-3) 05/06/20 12:40 Oxygen Liter Flow Cancelled 05/06/20 17:11 FiO2 21 % 05/06/20 18:42 Sodium 136 mmol/L (136-145) 05/07/20 06:12 Potassium 3.9 mmol/L (3.5-5.1) 05/07/20 06:12 Chloride 105 mmol/L (98-107) 05/07/20 06:12 Carbon Dioxide 16.6 mmol/L (21.0-32.0) L 05/07/20 06:12 Anion Gap 14.4 mmol/L (3-11) H 05/07/20 06:12 BUN 43 mg/dL (7-18) H D 05/07/20 06:12 Creatinine 3.16 mg/dL (0.70-1.30) H D 05/07/20 06:12 Estimated GFR/1.73 m2 19.42 (mL/min/1.73m2) 05/07/20 06:12 Glucose 149 mg/dL (74-106) H 05/07/20 06:12 Lactate 2.5 mmol/L (0.6-1.4) H* 05/07/20 10:10 Calcium 7.2 mg/dL (8.5-10.1) L 05/07/20 06:12 Magnesium 1.2 mg/dL (1.8-2.4) L 05/07/20 06:12 Ferritin 496 ng/mL (26-388) H 05/07/20 06:12 Total Bilirubin 1.9 mg/dL (0.2-1.0) H 05/07/20 06:12 AST 33 U/L (15-37) 05/07/20 06:12 ALT 18 U/L (16-63) 05/07/20 06:12 Alkaline Phosphatase 63 U/L (46-116) 05/07/20 06:12 Ammonia < 10 umol/L (11-32) L 05/06/20 12:40 Lactate Dehydrogenase 331 U/L (85-227) H 05/06/20 12:40 Troponin I 0.05 ng/mL (<0.06) 05/07/20 06:12 C-Reactive Protein 21.53 mg/dL (0.0-0.3) H 05/07/20 06:12 Total Protein 5.4 g/dL (6.4-8.2) L 05/07/20 06:12 Albumin 2.4 g/dL (3.4-5.0) L 05/07/20 06:12 Procalcitonin 7.9 ng/mL 05/06/20 12:40 TSH 0.54 uIU/mL (0.36-3.74) 05/06/20 12:40 Urine Color Yellow (Yellow) 05/07/20 10:00 Urine Clarity Sl cloudy (Clear) 05/07/20 10:00 Urine pH 5.5 (5-8) 05/07/20 10:00 Ur Specific [place] 1.020 (1.005-1.025) 05/07/20 10:00 Urine Protein 100 mg/dL (Negative) H 05/07/20 10:00 Urine Ketones Negative mg/dL (Negative) 05/07/20 10:00 Urine Blood Moderate (Negative) H 05/07/20 10:00 Urine Nitrite Negative (Negative) 05/07/20 10:00 Urine Bilirubin Negative (Negative) 05/07/20 10:00 Urine Urobilinogen 0.2 EU/dL (Up TO 0.2) 05/07/20 10:00 Ur Leukocyte Esterase Negative (Negative) 05/07/20 10:00 Urine RBC 3-5 HPF (0-2) H 05/07/20 10:00 Urine WBC 0-2 HPF (0-5) 05/07/20 10:00 Ur Epithelial Cells Rare HPF (Negative) 05/07/20 10:00 Urine Crystals Few amorphous HPF (Negative) 05/07/20 10:00 Urine Bacteria Few HPF (Negative) 05/07/20 10:00 Urine Casts 10-20 coarsegranular LPF (Negative) 05/07/20 10:00 Urine Mucus Trace (Negative) 05/07/20 10:00 Urine Other Rare renal (Negative) 05/07/20 10:00 Ur Culture Indicated? No 05/07/20 10:00 Urine Glucose Negative mg/dL (Negative) 05/07/20 10:00 COVID-19 PCR Negative (Negative) 05/06/20 12:40 Nasopharyn COVID-19 PCR Not Applicable 05/06/20 12:40 Ref Test Perform Site [facility] lab 05/06/20 12:40
[2020-05-07] MEDS: PIPERACILLIN/TAZO 2.25 GM in Normal Saline 50 ML IVPB (12:26)
[2020-05-07 12:47] LABS: Lactate 2.3 mmol/L (0.6-1.4)
[2020-05-07] MEDS: Normal Saline Flush 10 ML SYR IVP (13:23)
--- NOTE | 2020-05-07 13:41 | DSE_ITS ---
Date of service: 05/07/20 Time of Service: 13:42 DS: Diagnosis Discharge Diagnosis (1) Septic shock due to Clostridioides difficile: Status: Acute (2) Partial small bowel obstruction: Status: Acute (3) Dilatation of colon: Status: Acute (4) Hemorrhage of both adrenal glands: Status: Acute (5) Acute adrenal insufficiency: Status: Acute (6) Acute kidney injury superimposed on chronic kidney disease: Status: Acute (7) Coagulopathy: Status: Acute (8) Hypomagnesemia: Status: Acute (9) Lactic acidosis: Status: Acute (10) Traumatic hematuria: Status: Acute (11) Respiratory alkalosis: Status: Resolved (12) Aplastic anemia: Status: Acute (13) Low-grade chronic hyperbilirubinemia: Status: Chronic (14) COVID-19 ruled out by laboratory testing: Status: Acute Discharge Plan Disposition Patient Disposition: [facility] Condition: Critical Discharge Details Chief Complaint: Fever Clinical Impression: Acute dehydration, Fever, Sepsis Reason For Visit: SEPTIC SHOCK Admit Date/Time: 05/06/20 15:56 Admit Provider: Shelby Glez Attending Provider: Shelby Glez Primary Care Provider: Lizbeth Li V ED Provider: Tre Pham Hospital Course Hospital Course: Mr Bernardo is a 74 year old male with PMHx of CAD s/p CABG, aplastic anemia, CKD, chronic hyperbilirubinemia, who was admitted to [facility] ICU under the hospitalist service on 05/06/2020 with septic shock due to (at least) C. diff colitis. The patient had presented to [facility] ED on 05/05/2020 with abdominal pain, was diagnosed with mild colitis. He was tachycardic on this presentation and was offered admission, but refused and went home without antibiotics. He re- presented to [facility] ED on 05/06/2020 with slight confusion, malaise/fatigue, generalized muscle aches, and a fever of 101 at home. Of note, he was tachycardic to 150s, tachypenic to 30s-40s, had LLQ tenderness on palpation, and mottling of his skin in the ED. He was initiated on aggressive IVF, empiric vancomycin/levaquin/doxy in the ED, which we changed to zosyn to cover for a GI source/doxycycline and to which we added metronidazole once C.Diff screen came back positive (PCR pending). His imaging, repeated without contrast with addition of CT scan of the chest, revealed a right upper lung field spiculated mass, as well as colonic and small bowel dilatation, obstruction not excluded. From here, the patient quickly went into septic shock, requiring placement of R IJ CVL and initiation of norepinephrine drip as well as stress dose steroids. He did develop diarrhea overnight, which tested positive for C.DIff.. He was felt to have early SBO by general surgery, and an NGT was placed - now suctioning billious contents. No surgical intervention was advised. Re-discussing the imaging with radiology, it was noted that on CT from 05/06/2020, the patient had bilateral adrenal mass-like lesions that were not seen on CT the day before, suspicious for adrenal hemorrhages. In literature search, this could be ass ociated with/be caused by sepsis/shock, meningococcemia, atypical infections such as Haemophilus or mycoplasma, as well as staph/strep, in addition to vascular issues. Radiologist did also noted that the segment of colon proximal to the area of colon thickening was dilated to 7 cm, though it did not quite look like toxic megacolon. At this time, the patient is feeling and looks significantly better, but remains on norepinephrine at 31 mcg/min as well as IVF. Due to his overall medical complexity, it is felt that a transfer to a tertiary care facility is indicated. The patient was accepted in transfer [place] [facility] by Dr Torsten Candelario. The patient is stable for transfer and agrees to transfer. He is DNR/DNI. Total Critical Care Time on day of Transfer was 90 minutes. Please, see MAR for current medication list. Home Meds and New Rx's Prescriptions: No Action Promacta 75 mg tablet 150 mg PO DAILY RF: 0 prochlorperazine maleate [Compazine] 10 mg tablet 10 mg PO TID PRNQty: 10 RF: 0 dicyclomine 20 mg tablet 20 mg PO QID Qty: 20 RF: 0 Discharge Instructions Activity:: bedrest Diet:: NPO Discharge Orders Discharge Orders: Discharge Order (Routine); Ordered 05/07/20 Ordered By: Shelby Glez DS: Summary Status at Discharge Functional status at discharge: bed bound Overall status at discharge: patient is not back to baseline Mental Status: mental status grossly normal Speech and Movement: speech and movement normal Mood: congruent mood Affect: normal affect Exam Narrative Exam Narrative: General: Pleasant middle-aged male with an NGT in, A&Ox3, mentation better, not tachypneic HEENT: EOMI, MMM Heart: RRR, mildly tachycardic, no m/r/g Lungs: CTAB Abdomen: soft, nontender, nondistended. + BS Extremities: no e/c/c BLE's, extremities warm. Psych Mental Status: mental status grossly normal Speech and Movement: speech and movement normal Mood: congruent mood Affect: normal affect DS: Data Vitals/I&O Vitals and I&O: Vital Signs Temperature 36.6 C 05/07/20 07:35 Temperature Source Temporal Artery Scan 05/07/20 07:35 Pulse 93 H 05/07/20 13:00 Pulse 93 H 05/07/20 13:00 Respiratory Rate 23 05/07/20 13:00 Respiratory Effort Non-Labored 05/07/20 07:35 Respiratory Depth Normal 05/07/20 07:35 Respiratory Pattern Tachypnea 05/07/20 07:35 Blood Pressure 105/64 05/07/20 13:00 Blood Pressure Mean 73 05/07/20 13:00 Blood Pressure Position Supine 05/07/20 07:35 Pulse Oximetry 95 05/07/20 13:00 Oxygen Delivery Method Room Air 05/07/20 08:15 Oxygen Flow Rate 0 05/07/20 08:15 Pain Level 0 05/07/20 04:00 Intake & Output 05/06/20 05/07/20 05/07/20 23:59 11:59 23:59 Intake Total 3763.193 / 3763.193 3067.564 / 3067.564 0 / 3067.564 Output Total 115 / 115 400 / 400 Balance 3648.193 / 3648.193 2667.564 / 2667.564 0 / 2667.564 Weight 91.4 kg 91.4 kg Intake: IV 3763.193 / 3763.193 3067.564 / 3067.564 0 / 3067.564 Output: Gastric Drainage 150 / 150 Left Nare 150 / 150 Urine 115 / 115 250 / 250 Other: Urine Color Dark Jake Straw Urine Appearance Cloudy Cloudy Comment urometer added Randle Catheter intact and draining light jake clear urine with sediment. Gastric Occult Blood Left Nare Negative Data Completed and Pending Completed studies during hospitalization [Text1]: CT abdomen/pelvis with contrast 05/05/2020 (prior to this admission): Left lower lobe patchy pulmonary infiltrates, acute versus chronic, please correlate clinically. Nonobstructing left renal calculi. Large bilateral renal cysts, noted on prior studies. Wall thickening of the terminal ileum, this may represent inflammatory process. Question mild wall thickening of descending colon as well, colitis should also be considered. CXR 05/06/2020: Supine AP chest was obtained. There are multiple sternal s utures. Cardiac size is within normal limits. Linear radiodensities noted at left lung base. Right mid lung radiodensity corresponds with spiculated lesion identified on CT There is an apparent right side central venous catheter inserted via jugular approach, the tip overlies the SVC. CXR 05/06/2020: Portable chest film at 1415 hours. The heart appears mildly enlarged. There are multiple sternal sutures. There are bilateral streaky and patchy intrapulmonary radiodensities in the lung bases, findings may represent pneumonitis and/or atelectasis. Appropriate follow-up studies requested. CT chest/abdomen/pelvis 05/06/2020 (no PO or IV contrast): New right sided pulmonary spiculated masslike lesion, suspicious for malignancy. Interval development of colonic and small bowel dilatation since yesterday's examination, question distal descending colonic focal wall thickening, obstruction at this site not excluded. Although the adrenal glands appeared normal on yesterday's contrast enhanced examination there is a suggestion of masslike lesions of the adrenals bilaterally on today's scan. This raises the possibility of acute process such as adrenal hemorrhage, appropriate follow-up studies requested US abdomen 05/07/2020: Cholelithiasis noted. No other significant findings. Limited study technically. Please see recent CT examinations. US venous BLE 05/07/2020: No evidence of deep venous thrombosis of right or left lower extremity. CXR 05/07/2020: Portable AP chest at 0150 hours, right central venous catheter again noted. NG tube has been placed, the tip of which overlies the gastric fundus. No other significant change. XR abdomen flat 05/07/2020: 1. Distal portion of NG tube in gastric lumen. 2. Small infiltrates or areas of subsegmental atelectasis in each lung. 3. There may be small left pleural effusion. Labs on day of discharge: Labs from last 24 hours 05/07/20 05/07/20 05/07/20 15:37 12:30 10:10 WBC RBC Hgb Hct MCV MCH MCHC RDW Plt Count MPV Immature Gran % Neutrophils % Band Neutrophils % Lymphocytes % Atypical Lymphs % Monocytes % Eosinophils % Basophils % Metamyelocytes % Absolute Neutrophils Absolute Lymphocytes Absolute Monocytes Absolute Eosinophils Absolute Basophils Nucleated RBCs Differential Comment RBC Morphology Polychromasia Hypochromasia Poikilocytosis Anisocytosis Microcytosis PT INR D-Dimer ABG Sample Site ABG pH ABG pCO2 ABG pO2 ABG HCO3 ABG Total CO2 ABG O2 Saturation ABG Base Excess Oxygen Liter Flow FiO2 Sodium Potassium Chloride Carbon Dioxide Anion Gap BUN Creatinine Estimated GFR/1.73 m2 Glucose Lactate Pending 2.3 H* 2.5 H* Calcium Magnesium Ferritin Total Bilirubin AST ALT Alkaline Phosphatase Troponin I C-Reactive Protein Total Protein Albumin Procalcitonin TSH Urine Color Urine Clarity Urine pH Ur Specific [employer] Urine Protein Urine Ketones Urine Blood Urine Nitrite Urine Bilirubin Urine Urobilinogen Ur Leukocyte Esterase Urine RBC Urine WBC Ur Epithelial Cells Urine Crystals Urine Bacteria Urine Casts Urine Mucus Urine Other Ur Culture Indicated? Urine Glucose Stool Campylobacter PCR Stl C.difficile Tox PCR Stool Salmonella PCR Stool Shigella PCR COVID-19 PCR Nasopharyn COVID-19 PCR Shiga Toxin (PCR) Ref Test Perform Site 05/07/20 05/07/20 05/07/20 10:00 06:12 06:12 WBC RBC Hgb Hct MCV MCH MCHC RDW Plt Count MPV Immature Gran % Neutrophils % Band Neutrophils % Lymphocytes % Atypical Lymphs % Monocytes % Eosinophils % Basophils % Metamyelocytes % Absolute Neutrophils Absolute Lymphocytes Absolute Monocytes Absolute Eosinophils Absolute Basophils Nucleated RBCs Differential Comment RBC Morphology Polychromasia Hypochromasia Poikilocytosis Anisocytosis Microcytosis PT 14.7 H INR 1.5 H D-Dimer 5645 H ABG Sample Site ABG pH ABG pCO2 ABG pO2 ABG HCO3 ABG Total CO2 ABG O2 Saturation ABG Base Excess Oxygen Liter Flow FiO2 Sodium Potassium Chloride Carbon Dioxide Anion Gap BUN Creatinine Estimated GFR/1.73 m2 Glucose Lactate 2.3 H* Calcium Magnesium Ferritin Total Bilirubin AST ALT Alkaline Phosphatase Troponin I C-Reactive Protein Total Protein Albumin Procalcitonin TSH Urine Color Yellow Urine Clarity Sl cloudy Urine pH 5.5 Ur Specific [employer] 1.020 Urine Protein 100 H Urine Ketones Negative Urine Blood Moderate H Urine Nitrite Negative Urine Bilirubin Negative Urine Urobilinogen 0.2 Ur Leukocyte Esterase Negative Urine RBC 3-5 H Urine WBC 0-2 Ur Epithelial Cells Rare Urine Crystals Few amorphous Urine Bacteria Few Urine Casts 10-20 coarsegranular Urine Mucus Trace Urine Other Rare renal Ur Culture Indicated? No Urine Glucose Negative Stool Campylobacter PCR Stl C.difficile Tox PCR Stool Salmonella PCR Stool Shigella PCR COVID-19 PCR Nasopharyn COVID-19 PCR Shiga Toxin (PCR) Ref Test Perform Site 05/07/20 05/07/20 05/07/20 06:12 06:12 00:30 WBC 12.29 H D RBC 4.09 L Hgb 9.7 L Hct 31.7 L MCV 77.5 L MCH 23.7 L MCHC 30.6 L RDW 28.5 H Plt Count 139 MPV Immature Gran % See Differential Neutrophils % 36.0 Band Neutrophils % 44.0 Lymphocytes % 3.0 Atypical Lymphs % 1 Monocytes % 13.0 Eosinophils % 0.0 Basophils % 1.0 Metamyelocytes % 2.0 Absolute Neutrophils 9.83 H Absolute Lymphocytes 0.49 L Absolute Monocytes 1.60 H Absolute Eosinophils 0.00 Absolute Basophils 0.12 Nucleated RBCs 3 Differential Comment Manual differential RBC Morphology See below Polychromasia Present Hypochromasia 2+ Poikilocytosis 3+ Anisocytosis 3+ Microcytosis 2+ PT INR D-Dimer ABG Sample Site ABG pH ABG pCO2 ABG pO2 ABG HCO3 ABG Total CO2 ABG O2 Saturation ABG Base Excess Oxygen Liter Flow FiO2 Sodium 136 Potassium 3.9 Chloride 105 Carbon Dioxide 16.6 L Anion Gap 14.4 H BUN 43 H D Creatinine 3.16 H D Estimated GFR/1.73 m2 19.42 Glucose 149 H Lactate 3.3 H* Calcium 7.2 L Magnesium 1.2 L Ferritin 496 H Total Bilirubin 1.9 H AST 33 ALT 18 Alkaline Phosphatase 63 Troponin I 0.05 C-Reactive Protein 21.53 H Total Protein 5.4 L Albumin 2.4 L Procalcitonin TSH Urine Color Urine Clarity Urine pH Ur Specific [employer] Urine Protein Urine Ketones Urine Blood Urine Nitrite Urine Bilirubin Urine Urobilinogen Ur Leukocyte Esterase Urine RBC Urine WBC Ur Epithelial Cells Urine Crystals Urine Bacteria Urine Casts Urine Mucus Urine Other Ur Culture Indicated? Urine Glucose Stool Campylobacter PCR Stl C.difficile Tox PCR Stool Salmonella PCR Stool Shigella PCR COVID-19 PCR Nasopharyn COVID-19 PCR Shiga Toxin (PCR) Ref Test Perform Site 05/06/20 05/06/20 05/06/20 22:47 21:45 21:38 WBC RBC Hgb Hct MCV MCH MCHC RDW Plt Count MPV Immature Gran % Neutrophils % Band Neutrophils % Lymphocytes % Atypical Lymphs % Monocytes % Eosinophils % Basophils % Metamyelocytes % Absolute Neutrophils Absolute Lymphocytes Absolute Monocytes Absolute Eosinophils Absolute Basophils Nucleated RBCs Differential Comment RBC Morphology Polychromasia Hypochromasia Poikilocytosis Anisocytosis Microcytosis PT INR D-Dimer ABG Sample Site ABG pH ABG pCO2 ABG pO2 ABG HCO3 ABG Total CO2 ABG O2 Saturation ABG Base Excess Oxygen Liter Flow FiO2 Sodium Potassium Chloride Carbon Dioxide Anion Gap BUN Creatinine Estimated GFR/1.73 m2 Glucose Lactate Cancelled Calcium Magnesium Ferritin Total Bilirubin AST ALT Alkaline Phosphatase Troponin I C-Reactive Protein Total Protein Albumin Procalcitonin TSH Urine Color Yellow Urine Clarity Sl cloudy Urine pH 5.0 Ur Specific [employer] 1.025 Urine Protein 100 H Urine Ketones Trace H Urine Blood Large H Urine Nitrite Negative Urine Bilirubin Small H Urine Urobilinogen 0.2 Ur Leukocyte Esterase Negative Urine RBC >50 H Urine WBC 0-2 Ur Epithelial Cells Not Applicable Urine Crystals Many amorphous Urine Bacteria Not Applicable Urine Casts Negative Urine Mucus Negative Urine Other Ur Culture Indicated? C&s done as ordered Urine Glucose Negative Stool Campylobacter PCR Pending Stl C.difficile Tox PCR Stool Salmonella PCR Pending Stool Shigella PCR Pending COVID-19 PCR Nasopharyn COVID-19 PCR Shiga Toxin (PCR) Pending Ref Test Perform Site 05/06/20 05/06/20 05/06/20 20:20 18:42 18:03 WBC RBC Hgb Hct MCV MCH MCHC RDW Plt Count MPV Immature Gran % Neutrophils % Band Neutrophils % Lymphocytes % Atypical Lymphs % Monocytes % Eosinophils % Basophils % Metamyelocytes % Absolute Neutrophils Absolute Lymphocytes Absolute Monocytes Absolute Eosinophils Absolute Basophils Nucleated RBCs Differential Comment RBC Morphology Polychromasia Hypochromasia Poikilocytosis Anisocytosis Microcytosis PT INR D-Dimer ABG Sample Site Right radial ABG pH 7.45 ABG pCO2 25 L ABG pO2 58 L ABG HCO3 17 L ABG Total CO2 16 L ABG O2 Saturation 91 L ABG Base Excess -7.0 L Oxygen Liter Flow FiO2 21 Sodium Potassium Chloride Carbon Dioxide Anion Gap BUN Creatinine Estimated GFR/1.73 m2 Glucose Lactate 1.6 H Calcium Magnesium Ferritin Total Bilirubin AST ALT Alkaline Phosphatase Troponin I C-Reactive Protein Total Protein Albumin Procalcitonin TSH Urine Color Urine Clarity Urine pH Ur Specific [employer] Urine Protein Urine Ketones Urine Blood Urine Nitrite Urine Bilirubin Urine Urobilinogen Ur Leukocyte Esterase Urine RBC Urine WBC Ur Epithelial Cells Urine Crystals Urine Bacteria Urine Casts Urine Mucus Urine Other Ur Culture Indicated? Urine Glucose Stool Campylobacter PCR Stl C.difficile Tox PCR Pending Stool Salmonella PCR Stool Shigella PCR COVID-19 PCR Nasopharyn COVID-19 PCR Shiga Toxin (PCR) Ref Test Perform Site 05/06/20 05/06/20 05/06/20 18:00 17:11 12:40 WBC RBC Hgb Hct MCV MCH MCHC RDW Plt Count MPV Immature Gran % Neutrophils % Band Neutrophils % Lymphocytes % Atypical Lymphs % Monocytes % Eosinophils % Basophils % Metamyelocytes % Absolute Neutrophils Absolute Lymphocytes Absolute Monocytes Absolute Eosinophils Absolute Basophils Nucleated RBCs Differential Comment RBC Morphology Polychromasia Hypochromasia Poikilocytosis Anisocytosis Microcytosis PT INR D-Dimer ABG Sample Site Cancelled ABG pH Cancelled ABG pCO2 Cancelled ABG pO2 Cancelled ABG HCO3 Cancelled ABG Total CO2 Cancelled ABG O2 Saturation Cancelled ABG Base Excess Cancelled Oxygen Liter Flow Cancelled FiO2 Cancelled Sodium Potassium Chloride Carbon Dioxide Anion Gap BUN Creatinine Estimated GFR/1.73 m2 Glucose Lactate Calcium Magnesium Ferritin Total Bilirubin AST ALT Alkaline Phosphatase Troponin I < 0.05 C-Reactive Protein Total Protein Albumin Procalcitonin TSH Urine Color Urine Clarity Urine pH Ur Specific [employer] Urine Protein Urine Ketones Urine Blood Urine Nitrite Urine Bilirubin Urine Urobilinogen Ur Leukocyte Esterase Urine RBC Urine WBC Ur Epithelial Cells Urine Crystals Urine Bacteria Urine Casts Urine Mucus Urine Other Ur Culture Indicated? Urine Glucose Stool Campylobacter PCR Stl C.difficile Tox PCR Stool Salmonella PCR Stool Shigella PCR COVID-19 PCR Negative Nasopharyn COVID-19 PCR Not Applicable Shiga Toxin (PCR) Ref Test Perform Site [place] [facility] 06/25/20 06/25/20 06/25/20 12:40 12:40 12:40 WBC RBC Hgb Hct MCV MCH MCHC RDW Plt Count MPV Immature Gran % Neutrophils % Band Neutrophils % Lymphocytes % Atypical Lymphs % Monocytes % Eosinophils % Basophils % Metamyelocytes % Absolute Neutrophils Absolute Lymphocytes Absolute Monocytes Absolute Eosinophils Absolute Basophils Nucleated RBCs Differential Comment RBC Morphology Polychromasia Hypochromasia Poikilocytosis Anisocytosis Microcytosis PT INR D-Dimer 2610 H ABG Sample Site ABG pH ABG pCO2 ABG pO2 ABG HCO3 ABG Total CO2 ABG O2 Saturation ABG Base Excess Oxygen Liter Flow FiO2 Sodium Potassium Chloride Carbon Dioxide Anion Gap BUN Creatinine Estimated GFR/1.73 m2 Glucose Lactate Calcium Magnesium Ferritin 197 Total Bilirubin AST ALT Alkaline Phosphatase Troponin I C-Reactive Protein Total Protein Albumin Procalcitonin 7.9 TSH Urine Color Urine Clarity Urine pH Ur Specific [employer] Urine Protein Urine Ketones Urine Blood Urine Nitrite Urine Bilirubin Urine Urobilinogen Ur Leukocyte Esterase Urine RBC Urine WBC Ur Epithelial Cells Urine Crystals Urine Bacteria Urine Casts Urine Mucus Urine Other Ur Culture Indicated? Urine Glucose Stool Campylobacter PCR Stl C.difficile Tox PCR Stool Salmonella PCR Stool Shigella PCR COVID-19 PCR Nasopharyn COVID-19 PCR Shiga Toxin (PCR) Ref Test Perform Site 05/06/20 12:40 WBC RBC Hgb Hct MCV MCH MCHC RDW Plt Count MPV Immature Gran % Neutrophils % Band Neutrophils % Lymphocytes % Atypical Lymphs % Monocytes % Eosinophils % Basophils % Metamyelocytes % Absolute Neutrophils Absolute Lymphocytes Absolute Monocytes Absolute Eosinophils Absolute Basophils Nucleated RBCs Differential Comment RBC Morphology Polychromasia Hypochromasia Poikilocytosis Anisocytosis Microcytosis PT INR D-Dimer ABG Sample Site ABG pH ABG pCO2 ABG pO2 ABG HCO3 ABG Total CO2 ABG O2 Saturation ABG Base Excess Oxygen Liter Flow FiO2 Sodium 134 L Potassium 4.0 Chloride 99 Carbon Dioxide 23.6 Anion Gap 11.4 H BUN 28 H Creatinine 2.13 H Estimated GFR/1.73 m2 30.61 Glucose 129 H Lactate Calcium 8.7 Magnesium Ferritin Total Bilirubin 2.7 H AST 21 ALT 18 Alkaline Phosphatase 91 Troponin I < 0.05 C-Reactive Protein Total Protein 7.3 Albumin 3.6 Procalcitonin TSH 0.54 Urine Color Urine Clarity Urine pH Ur Specific [employer] Urine Protein Urine Ketones Urine Blood Urine Nitrite Urine Bilirubin Urine Urobilinogen Ur Leukocyte Esterase Urine RBC Urine WBC Ur Epithelial Cells Urine Crystals Urine Bacteria Urine Casts Urine Mucus Urine Other Ur Culture Indicated? Urine Glucose Stool Campylobacter PCR Stl C.difficile Tox PCR Stool Salmonella PCR Stool Shigella PCR COVID-19 PCR Nasopharyn COVID-19 PCR Shiga Toxin (PCR) Ref Test Perform Site 05/06/20 13:30 Blood Blood Culture - Pending 05/06/20 12:40 Blood Blood Culture - Pending Preliminary micro results at discharge 05/06/20 21:45 Urine Culture - Preliminary Urine - Cath Randle Indwelling 05/06/20 13:30 Blood Culture - Pending Blood 05/06/20 12:40 Blood Culture - Pending Blood [facility] Medical History Aplastic anemia (Acute) CAD (coronary artery disease) (Chronic) Low-grade chronic hyperbilirubinemia (Chronic) NSTEMI (non-ST elevated myocardial infarction) (Acute) Surgical History S/P CABG x 3 (Acute ~10/28/19) S/P hernia repair (Acute) Social History Smoking/Tobacco Use Status: Never Alcohol Intake: never Drug use: Never Substance use type: does not use What type of physical activity do you participate in: none Do you feel safe at home: Yes Do you feel safe in your relationship?: Yes
[2020-05-07 15:54] LABS: Lactate 1.8 mmol/L (0.6-1.4)
[2020-05-08 09:29] LABS: C Difficile PCR Positive (Negative)
== END 2020-05-07 16:10 | disposition short-term general hospital (02) | DRG 871 ==
LOC: ER 16:46 → MS 17:01 → ER 17:24 → ICU 18:13
PROVIDERS: Internal Medicine; Nurse Practitioner Acute Care; Admitting Provider Internal Medicine; Emergency Provider Student in an Organized Health Care Education/Training Program; PCP Family Medicine; Visit Provider Internal Medicine
DX: A41.89 Other specified sepsis (principal); R65.21 Severe sepsis with septic shock; A04.72 Enterocolitis due to Clostridium difficile, not specified as recurrent; K56.600 Partial intestinal obstruction, unspecified as to cause; K59.39 Other megacolon; N17.9 Acute kidney failure, unspecified; E27.49 Other adrenocortical insufficiency; E87.3 Alkalosis; D61.9 Aplastic anemia, unspecified; E86.0 Dehydration; N18.9 Chronic kidney disease, unspecified; R09.02 Hypoxemia; Z03.818 Encounter for observation for suspected exposure to other biological agents ruled out; R79.1 Abnormal coagulation profile; E83.42 Hypomagnesemia; R31.0 Gross hematuria; E80.6 Other disorders of bilirubin metabolism
CPT/HCPCS: 36415; 36592; 71045; 71250; 76770; 80053; 82805; 84145; 85027; 87040; 87505; 93005; 96361; 96365; 96366; 96367; 96368; 99222; 99223; 99232; 99254; 99285; 99291; U0003; 36600; 74176; 76700; 81003; 81015; 82140; 82728; 83605; 83615; 83630; 83735; 84443; 84484; 85025; 85379; 85610; 86140; 87086; 87324; 87798; 93010; 93970; J0131; J1720; J1956; J2543; J3370

== ENCOUNTER 2020-05-18 03:24 | Outpatient (CLI) | payer MEDICARE, OTHER, SELFPAY ==
[2020-05-18 09:52] LABS: Abs Immature Grans 0.04 k/cumm (0.0-0.09); Absolute Basophil Count 0.01 k/cumm (0.0-0.2); Absolute Eosinophil Count 0.01 k/cumm (0.0-0.7); Absolute Lymphocyte Count 0.53 k/cumm (1.2-3.4); Absolute Monocyte Count 0.64 k/cumm (0.11-0.7); Basophils % 0.3; Eosinophils % 0.3; HCT 26.9 % (40.0-50.0); HGB 8.4 g/dL (13.5-17.5); Immature Grans % 1.3 %; Lymphocytes % 17.8; Mean Corp. HGB Concentration 31.2 g/dL (32.0-36.0); Mean Corpuscular Hemoglobin 24.9 pg (27.0-33.0); Mean Corpuscular Volume 79.6 fL (80-95); Monocytes % 21.5; Neutrophils % 58.8; RBC 3.38 m/cumm (4.50-6.00); RBC Distribution Width 29.4 % (11.8-14.1); White Blood Cell Count 2.97 k/cumm (4.4-10.8)
[2020-05-18 09:59] LABS: Absolute Neutrophil Count 1.75 k/cumm (1.2-6.7)
[2020-05-18 10:05] LABS: ALT 26 U/L (16-63); AST 18 U/L (15-37); Albumin 2.7 g/dL (3.4-5.0); Alkaline Phosphatase 64 U/L (46-116); Anion Gap 6.5 mmol/L (3-11); BUN 22 mg/dL (7-18); Bilirubin, Total 1.2 mg/dL (0.2-1.0); CO2 28.5 mmol/L (21.0-32.0); CREATININE 1.25 mg/dL (0.70-1.30); Chloride 104 mmol/L (98-107); Estimated GFR 56.62 (mL/min/1.73m2); Glucose 88 mg/dL (74-106); Potassium 4.1 mmol/L (3.5-5.1); Sodium 139 mmol/L (136-145)
[2020-05-18 10:18] LABS: Platelet Count 198 x1000/uL (130-400)
[2020-05-18 10:19] LABS: Anisocytosis 3+; Basophilic Stippling Present; Diff Comment RBC Morph Reviewed; Hypochromasia 2+; Microcytosis 2+; Polychromasia Present
[2020-05-18 10:20] LABS: Poikilocytes 2+
== END 2020-05-18 03:44 ==
PROVIDERS: PCP Family Medicine; Visit Provider Internal Medicine Hematology & Oncology
DX: D61.9 Aplastic anemia, unspecified (principal)
CPT/HCPCS: 36415; 80053; 86900; 86901; 85025

== ENCOUNTER 2020-06-01 03:47 | Outpatient (CLI) | payer MEDICARE, OTHER, SELFPAY ==
[2020-06-01 08:41] LABS: HGB 8.5 g/dL (13.5-17.5); Mean Corp. HGB Concentration 29.3 g/dL (32.0-36.0); Mean Corpuscular Hemoglobin 23.7 pg (27.0-33.0); RBC 3.58 m/cumm (4.50-6.00); RBC Distribution Width 28.1 % (11.8-14.1)
[2020-06-01 08:51] LABS: ALT 16 U/L (16-63); AST 13 U/L (15-37); Albumin 3.2 g/dL (3.4-5.0); Alkaline Phosphatase 62 U/L (46-116); Anion Gap 8.3 mmol/L (3-11); BUN 27 mg/dL (7-18); Bilirubin, Total 2.2 mg/dL (0.2-1.0); CO2 27.7 mmol/L (21.0-32.0); CREATININE 1.62 mg/dL (0.70-1.30); Calcium 8.4 mg/dL (8.5-10.1); Chloride 103 mmol/L (98-107); Estimated GFR 41.86 (mL/min/1.73m2); Glucose 94 mg/dL (74-106); Potassium 4.1 mmol/L (3.5-5.1); Sodium 139 mmol/L (136-145); Total Protein 6.7 g/dL (6.4-8.2)
[2020-06-01 09:18] LABS: Absolute Basophil Count 0.05 k/cumm (0.0-0.2); Absolute Lymphocyte Count 0.93 k/cumm (1.2-3.4); Absolute Monocyte Count 0.21 k/cumm (0.11-0.7); Platelet Count 98 x1000/uL (130-400)
[2020-06-01 09:19] LABS: Anisocytosis 3+; Basophilic Stippling Present; Diff Comment Manual Differential; Poikilocytes 1+; Polychromasia Present
[2020-06-01 09:23] LABS: Absolute Neutrophil Count 0.32 k/cumm (1.2-6.7)
== END 2020-06-01 04:07 ==
PROVIDERS: PCP Family Medicine; Visit Provider Internal Medicine Hematology & Oncology
DX: D61.9 Aplastic anemia, unspecified (principal)
CPT/HCPCS: 36415; 80053; 86900; 86901; 85025

== ENCOUNTER 2020-06-15 01:39 | Outpatient (CLI) | payer MEDICARE, OTHER, SELFPAY ==
[2020-06-15 10:39] LABS: HCT 32.8 % (40.0-50.0); HGB 9.4 g/dL (13.5-17.5); MCH 23.1 pg (27.0-33.0); MCHC 28.7 % (32.0-36.0); MCV 80.6 fL (80-95); RBC 4.07 10^6/uL (4.36-5.78); RDW 27.3 % (11.8-14.1); RDW-SD 78.6 fL; WBC 5.36 10^3/uL (4.4-10.8)
[2020-06-15 10:53] LABS: ALT 17 U/L (16-63); AST 12 U/L (15-37); Albumin 3.6 g/dL (3.4-5.0); Alkaline Phosphatase 72 U/L (46-116); Anion Gap 8.2 mmol/L (3-11); BUN 35 mg/dL (7-18); Bilirubin, Total 1.8 mg/dL (0.2-1.0); CO2 25.8 mmol/L (21.0-32.0); CREATININE 1.48 mg/dL (0.70-1.30); Calcium 8.6 mg/dL (8.5-10.1); Chloride 105 mmol/L (98-107); Estimated GFR 46.46 (mL/min/1.73m2); Glucose 101 mg/dL (74-106); Potassium 4.3 mmol/L (3.5-5.1); Sodium 139 mmol/L (136-145); Total Protein 6.9 g/dL (6.4-8.2)
[2020-06-15 10:57] LABS: Absolute Lymphocyte Count 0.59 10^3/uL (1.2-3.4); Absolute Monocyte Count 0.54 10^3/uL (0.1-0.8); Absolute Neutrophil Count 4.23 10^3/uL (1.2-6.7); Bands % 8; Platelet Count 112 10^3/uL (130-400)
[2020-06-15 10:58] LABS: Anisocytosis 3+; Basophilic Stippling Present; Diff Comment Manual Differential; Hypochromasia 2+; Microcytosis 2+
[2020-06-15 10:59] LABS: Poikilocytes 2+
== END 2020-06-15 01:59 ==
PROVIDERS: PCP Family Medicine; Visit Provider Internal Medicine Hematology & Oncology
DX: D61.9 Aplastic anemia, unspecified (principal)
CPT/HCPCS: 36415; 80053; 85025

== ENCOUNTER 2020-06-29 02:45 | Outpatient (CLI) | payer MEDICARE, OTHER, SELFPAY ==
[2020-06-29 09:42] LABS: Abs Immature Grans 0.02 10^3/uL (0.0-0.06); HCT 28.4 % (40.0-50.0); HGB 8.3 g/dL (13.5-17.5); MCH 23.2 pg (27.0-33.0); MCHC 29.2 % (32.0-36.0); MCV 79.6 fL (80-95); Platelet Count 146 10^3/uL (130-400); RBC 3.57 10^6/uL (4.36-5.78); RDW 26.8 % (11.8-14.1); RDW-SD 76.1 fL
[2020-06-29 09:51] LABS: ALT 17 U/L (16-63); AST 13 U/L (15-37); Albumin 3.5 g/dL (3.4-5.0); Alkaline Phosphatase 57 U/L (46-116); Anion Gap 9.8 mmol/L (3-11); BUN 33 mg/dL (7-18); Bilirubin, Total 1.8 mg/dL (0.2-1.0); CO2 26.2 mmol/L (21.0-32.0); CREATININE 1.41 mg/dL (0.70-1.30); Calcium 8.3 mg/dL (8.5-10.1); Chloride 105 mmol/L (98-107); Estimated GFR 49.13 (mL/min/1.73m2); Glucose 95 mg/dL (74-106); Sodium 141 mmol/L (136-145); Total Protein 6.7 g/dL (6.4-8.2)
[2020-06-29 10:06] LABS: WBC 1.77 10^3/uL (4.4-10.8)
[2020-06-29 10:07] LABS: Absolute Monocyte Count 0.39 10^3/uL (0.1-0.8); Absolute Neutrophil Count 0.89 10^3/uL (1.2-6.7)
[2020-06-29 10:08] LABS: Anisocytosis 2+; Basophilic Stippling Present; Nucleated RBC 2 %
[2020-06-29 10:09] LABS: Poikilocytes 1+; Polychromasia Present
[2020-06-29 11:17] LABS: Diff Comment Manual Differential
== END 2020-06-29 03:05 ==
PROVIDERS: PCP Family Medicine; Visit Provider Internal Medicine Hematology & Oncology
DX: D61.9 Aplastic anemia, unspecified (principal)
CPT/HCPCS: 36415; 80053; 85025

== ENCOUNTER 2020-07-13 04:43 | Outpatient (CLI) | payer MEDICARE, OTHER, SELFPAY ==
[2020-07-13 09:30] LABS: Abs Immature Grans 0.01 10^3/uL (0.0-0.06); Absolute Lymphocyte Count 0.57 10^3/uL (1.2-3.4); Absolute Monocyte Count 0.55 10^3/uL (0.1-0.8); HCT 28.6 % (40.0-50.0); HGB 8.3 g/dL (13.5-17.5); Immature Grans % 0.7; MCH 22.6 pg (27.0-33.0); MCV 77.7 fL (80-95); Monocytes % 36.7; Neutrophils % 24.6; Nucleated RBC 3 %; RBC 3.68 10^6/uL (4.36-5.78); RDW 26.3 % (11.8-14.1); RDW-SD 70.5 fL
[2020-07-13 09:36] LABS: ALT 14 U/L (16-63); AST 12 U/L (15-37); Albumin 3.3 g/dL (3.4-5.0); Alkaline Phosphatase 61 U/L (46-116); Anion Gap 6.6 mmol/L (3-11); BUN 28 mg/dL (7-18); Bilirubin, Total 2.1 mg/dL (0.2-1.0); CO2 28.4 mmol/L (21.0-32.0); CREATININE 1.44 mg/dL (0.70-1.30); Calcium 8.2 mg/dL (8.5-10.1); Chloride 105 mmol/L (98-107); Estimated GFR 47.95 (mL/min/1.73m2); Glucose 106 mg/dL (74-106); Potassium 3.9 mmol/L (3.5-5.1); Sodium 140 mmol/L (136-145); Total Protein 6.3 g/dL (6.4-8.2)
[2020-07-13 09:49] LABS: Anisocytosis 2+; Diff Comment Agrees w/ Instrument; Hypochromasia 1+; Macrocytosis 1+; Microcytosis 1+; Poikilocytes 1+; Polychromasia Present
[2020-07-13 09:50] LABS: Platelet Count 166 10^3/uL (130-400)
[2020-07-13 09:55] LABS: Absolute Neutrophil Count 0.37 10^3/uL (1.2-6.7)
== END 2020-07-13 05:03 ==
PROVIDERS: PCP Family Medicine; Visit Provider Internal Medicine Hematology & Oncology
DX: D61.9 Aplastic anemia, unspecified (principal)
CPT/HCPCS: 36415; 80053; 85025

== ENCOUNTER 2020-07-27 03:33 | Outpatient (CLI) | payer MEDICARE, OTHER, SELFPAY ==
[2020-07-27 09:16] LABS: Abs Immature Grans 0.09 10^3/uL (0.0-0.06); HCT 30.4 % (40.0-50.0); HGB 8.7 g/dL (13.5-17.5); MCH 22.5 pg (27.0-33.0); MCHC 28.6 % (32.0-36.0); MCV 78.6 fL (80-95); Nucleated RBC 1 %; Platelet Count 189 10^3/uL (130-400); RBC 3.87 10^6/uL (4.36-5.78); RDW 26.6 % (11.8-14.1); RDW-SD 73.4 fL; WBC 5.64 10^3/uL (4.4-10.8)
[2020-07-27 09:29] LABS: ALT 15 U/L (16-63); AST 11 U/L (15-37); Albumin 3.4 g/dL (3.4-5.0); Alkaline Phosphatase 75 U/L (46-116); Anion Gap 6.8 mmol/L (3-11); BUN 29 mg/dL (7-18); CO2 27.2 mmol/L (21.0-32.0); CREATININE 1.48 mg/dL (0.70-1.30); Calcium 8.3 mg/dL (8.5-10.1); Chloride 105 mmol/L (98-107); Estimated GFR 46.46 (mL/min/1.73m2); Glucose 100 mg/dL (74-106); Potassium 3.9 mmol/L (3.5-5.1); Sodium 139 mmol/L (136-145); Total Protein 6.5 g/dL (6.4-8.2)
[2020-07-27 09:31] LABS: Bilirubin, Total 1.5 mg/dL (0.2-1.0)
[2020-07-27 09:35] LABS: Absolute Basophil Count 0.11 10^3/uL (0.0-0.2); Absolute Lymphocyte Count 0.79 10^3/uL (1.2-3.4); Absolute Monocyte Count 0.51 10^3/uL (0.1-0.8); Absolute Neutrophil Count 4.12 10^3/uL (1.2-6.7); Anisocytosis 2+; Bands % 18; Diff Comment Manual Differential; Metamyelocytes % 1; Myelocytes % 1
[2020-07-27 09:36] LABS: Hypochromasia 2+; Microcytosis 1+; Poikilocytes 2+; Polychromasia Present
== END 2020-07-27 03:53 ==
PROVIDERS: PCP Family Medicine; Visit Provider Internal Medicine Hematology & Oncology
DX: D61.9 Aplastic anemia, unspecified (principal)
CPT/HCPCS: 36415; 80053; 86900; 86901; 85025

== ENCOUNTER 2020-08-17 01:13 | Outpatient (CLI) | payer MEDICARE, OTHER, SELFPAY ==
[2020-08-17 09:25] LABS: Abs Immature Grans 0.01 10^3/uL (0.0-0.06); Absolute Lymphocyte Count 0.41 10^3/uL (1.2-3.4); Absolute Monocyte Count 0.36 10^3/uL (0.1-0.8); HGB 8.5 g/dL (13.5-17.5); Immature Grans % 0.9; MCH 21.9 pg (27.0-33.0); MCHC 28.3 % (32.0-36.0); MCV 77.3 fL (80-95); Monocytes % 30.8; Neutrophils % 33.3; RBC 3.88 10^6/uL (4.36-5.78); RDW 25.3 % (11.8-14.1); RDW-SD 67.8 fL
[2020-08-17 09:40] LABS: ALT 12 U/L (16-63); AST 13 U/L (15-37); Albumin 3.4 g/dL (3.4-5.0); Alkaline Phosphatase 63 U/L (46-116); Anion Gap 6.4 mmol/L (3-11); BUN 31 mg/dL (7-18); Bilirubin, Total 1.9 mg/dL (0.2-1.0); CO2 26.6 mmol/L (21.0-32.0); CREATININE 1.44 mg/dL (0.70-1.30); Calcium 8.4 mg/dL (8.5-10.1); Chloride 105 mmol/L (98-107); Estimated GFR 47.95 (mL/min/1.73m2); Glucose 100 mg/dL (74-106); Potassium 4.3 mmol/L (3.5-5.1); Sodium 138 mmol/L (136-145); Total Protein 6.7 g/dL (6.4-8.2)
[2020-08-17 09:59] LABS: Nucleated RBC 2 %
[2020-08-17 10:01] LABS: Absolute Neutrophil Count 0.39 10^3/uL (1.2-6.7); WBC 1.17 10^3/uL (4.4-10.8)
[2020-08-17 10:02] LABS: Anisocytosis 3+; Basophilic Stippling Present; Diff Comment Agrees w/ Instrument; Platelet Count 182 10^3/uL (130-400)
[2020-08-17 10:03] LABS: Hypochromasia 3+; Microcytosis 3+; Poikilocytes 2+; Polychromasia Present
== END 2020-08-17 01:33 ==
PROVIDERS: PCP Family Medicine; Visit Provider Internal Medicine Hematology & Oncology
DX: D61.9 Aplastic anemia, unspecified (principal)
CPT/HCPCS: 36415; 80053; 86900; 86901; 85025

== ENCOUNTER → 2020-08-19 13:20 | Outpatient (BNVA) | payer MEDICARE, OTHER, SELFPAY | PROVIDERS: PCP Family Medicine; Referring Provider Family Medicine; Visit Provider Internal Medicine Cardiovascular Disease | DX: Z95.1 Presence of aortocoronary bypass graft (principal); I25.10 Atherosclerotic heart disease of native coronary artery without angina pectoris; I47.1 Supraventricular tachycardia; D61.9 Aplastic anemia, unspecified | CPT/HCPCS: 99214; 99442 ==

== ENCOUNTER 2020-08-31 01:40 | Outpatient (CLI) | payer MEDICARE, OTHER, SELFPAY ==
[2020-09-02 12:02] LABS: Adrenocorticotropic Hormone, P 291 pg/mL
== END 2020-08-31 02:00 ==
PROVIDERS: PCP Family Medicine; Visit Provider Internal Medicine Endocrinology, Diabetes & Metabolism
DX: E27.40 Unspecified adrenocortical insufficiency (principal)
CPT/HCPCS: 36415; 82533; 82024

== ENCOUNTER 2020-09-14 03:44 | Outpatient (CLI) | payer MEDICARE, OTHER, SELFPAY ==
[2020-09-14 09:25] LABS: Abs Immature Grans 0.03 10^3/uL (0.0-0.06); Absolute Basophil Count 0.01 10^3/uL (0.0-0.2); Absolute Eosinophil Count 0.02 10^3/uL (0.0-0.7); Absolute Lymphocyte Count 0.62 10^3/uL (1.2-3.4); Absolute Monocyte Count 0.78 10^3/uL (0.1-0.8); Absolute Neutrophil Count 1.44 10^3/uL (1.2-6.7); Basophils % 0.3; Eosinophils % 0.7; HCT 31.5 % (40.0-50.0); Lymphocytes % 21.4; MCH 21.5 pg (27.0-33.0); MCHC 28.6 % (32.0-36.0); MCV 75.2 fL (80-95); Monocytes % 26.9; Neutrophils % 49.7; Nucleated RBC 2 %; RBC 4.19 10^6/uL (4.36-5.78); RDW-SD 65.4 fL
[2020-09-14 09:34] LABS: ALT 22 U/L (16-63); AST 12 U/L (15-37); Albumin 3.5 g/dL (3.4-5.0); Alkaline Phosphatase 64 U/L (46-116); Anion Gap 6.2 mmol/L (3-11); BUN 31 mg/dL (7-18); CO2 26.8 mmol/L (21.0-32.0); CREATININE 1.63 mg/dL (0.70-1.30); Calcium 8.4 mg/dL (8.5-10.1); Chloride 105 mmol/L (98-107); Estimated GFR 41.56 (mL/min/1.73m2); Glucose 96 mg/dL (74-106); Potassium 3.7 mmol/L (3.5-5.1); Sodium 138 mmol/L (136-145)
[2020-09-14 09:45] LABS: Platelet Count 248 10^3/uL (130-400)
[2020-09-14 09:46] LABS: Anisocytosis 2+; Basophilic Stippling Present; Diff Comment Diff Reviewed
[2020-09-14 09:47] LABS: Poikilocytes 2+
== END 2020-09-14 04:04 ==
PROVIDERS: PCP Family Medicine; Visit Provider Internal Medicine Hematology & Oncology
DX: I25.10 Atherosclerotic heart disease of native coronary artery without angina pectoris (principal); Z95.1 Presence of aortocoronary bypass graft; D61.9 Aplastic anemia, unspecified; Z01.810 Encounter for preprocedural cardiovascular examination
CPT/HCPCS: 36415; 80053; 99214; 85025

== ENCOUNTER 2020-09-15 21:16 | Outpatient (REF) | payer MEDICARE, OTHER, SELFPAY ==
[2020-09-20 21:54] LABS: SARS-CoV-2 RNA Undetected (Undetected); SARS-CoV-2 Specimen Source Nasal
== END 2020-09-15 21:36 ==
LOC: NCHCN 21:16
PROVIDERS: PCP Family Medicine; Visit Provider Nurse Practitioner Family
DX: R51.9 Headache, unspecified (principal); J34.89 Other specified disorders of nose and nasal sinuses
CPT/HCPCS: U0003

== ENCOUNTER 2020-09-28 01:51 | Outpatient (CLI) | payer MEDICARE, OTHER, SELFPAY ==
[2020-09-28 09:39] LABS: Abs Immature Grans 0.01 10^3/uL (0.0-0.06); Absolute Lymphocyte Count 0.59 10^3/uL (1.2-3.4); Absolute Monocyte Count 0.44 10^3/uL (0.1-0.8); Absolute Neutrophil Count 0.65 10^3/uL (1.2-6.7); HCT 30.2 % (40.0-50.0); HGB 8.5 g/dL (13.5-17.5); Immature Grans % 0.6; Lymphocytes % 34.9; MCH 21.2 pg (27.0-33.0); MCHC 28.1 % (32.0-36.0); MCV 75.3 fL (80-95); Neutrophils % 38.5; RBC 4.01 10^6/uL (4.36-5.78); RDW-SD 65.7 fL
[2020-09-28 09:56] LABS: ALT 18 U/L (16-63); AST 15 U/L (15-37); Albumin 3.2 g/dL (3.4-5.0); Alkaline Phosphatase 62 U/L (46-116); Anion Gap 7.1 mmol/L (3-11); BUN 28 mg/dL (7-18); Bilirubin, Total 1.6 mg/dL (0.2-1.0); CO2 25.9 mmol/L (21.0-32.0); CREATININE 1.47 mg/dL (0.70-1.30); Calcium 8.2 mg/dL (8.5-10.1); Chloride 107 mmol/L (98-107); Estimated GFR 46.83 (mL/min/1.73m2); Glucose 93 mg/dL (74-106); Potassium 3.9 mmol/L (3.5-5.1); Sodium 140 mmol/L (136-145); Total Protein 6.7 g/dL (6.4-8.2)
[2020-09-28 10:09] LABS: Platelet Count 183 10^3/uL (130-400)
[2020-09-28 10:10] LABS: Nucleated RBC 3 %; WBC 1.69 10^3/uL (4.4-10.8)
[2020-09-28 10:11] LABS: Anisocytosis 3+; Diff Comment Agrees w/ Instrument; Hypochromasia 3+; Microcytosis 3+
[2020-09-28 10:12] LABS: Poikilocytes 2+
== END 2020-09-28 02:11 ==
PROVIDERS: PCP Family Medicine; Visit Provider Internal Medicine Hematology & Oncology
DX: D61.9 Aplastic anemia, unspecified (principal)
CPT/HCPCS: 36415; 80053; 86900; 86901; 85025

== ENCOUNTER 2020-10-12 03:42 | Outpatient (CLI) | payer MEDICARE, OTHER, SELFPAY ==
[2020-10-12 09:39] LABS: Abs Immature Grans 0.01 10^3/uL (0.0-0.06); Absolute Lymphocyte Count 0.47 10^3/uL (1.2-3.4); Absolute Monocyte Count 0.45 10^3/uL (0.1-0.8); Absolute Neutrophil Count 0.81 10^3/uL (1.2-6.7); HGB 8.7 g/dL (13.5-17.5); Immature Grans % 0.6; MCH 20.7 pg (27.0-33.0); MCHC 28.1 % (32.0-36.0); MCV 73.8 fL (80-95); Monocytes % 25.9; Neutrophils % 46.5; RDW-SD 62.2 fL
[2020-10-12 10:01] LABS: ALT 15 U/L (16-63); AST 12 U/L (15-37); Albumin 3.2 g/dL (3.4-5.0); Alkaline Phosphatase 63 U/L (46-116); Anion Gap 4.3 mmol/L (3-11); BUN 28 mg/dL (7-18); Bilirubin, Total 1.7 mg/dL (0.2-1.0); CO2 27.7 mmol/L (21.0-32.0); CREATININE 1.52 mg/dL (0.70-1.30); Calcium 8.2 mg/dL (8.5-10.1); Chloride 107 mmol/L (98-107); Estimated GFR 45.05 (mL/min/1.73m2); Glucose 92 mg/dL (74-106); Potassium 4.1 mmol/L (3.5-5.1); Sodium 139 mmol/L (136-145); Total Protein 6.6 g/dL (6.4-8.2)
[2020-10-12 10:04] LABS: WBC 1.74 10^3/uL (4.4-10.8)
[2020-10-12 10:05] LABS: Platelet Count 161 10^3/uL (130-400)
[2020-10-12 10:09] LABS: Nucleated RBC 0 %
[2020-10-12 10:10] LABS: Diff Comment Agrees w/ Instrument
[2020-10-12 10:11] LABS: Anisocytosis 3+
[2020-10-12 10:12] LABS: Basophilic Stippling Present; Hypochromasia 2+; Microcytosis 2+; Polychromasia Present
[2020-10-12 10:14] LABS: Poikilocytes 2+
== END 2020-10-12 04:02 ==
PROVIDERS: PCP Family Medicine; Visit Provider Internal Medicine Hematology & Oncology
DX: D61.9 Aplastic anemia, unspecified (principal)
CPT/HCPCS: 36415; 80053; 85025

== ENCOUNTER 2020-11-09 03:17 | Outpatient (CLI) | payer MEDICARE, OTHER, SELFPAY ==
[2020-11-09 09:35] LABS: Abs Immature Grans 0.02 10^3/uL (0.0-0.06); Absolute Lymphocyte Count 0.67 10^3/uL (1.2-3.4); Absolute Monocyte Count 0.55 10^3/uL (0.1-0.8); HCT 32.8 % (40.0-50.0); HGB 9.4 g/dL (13.5-17.5); Lymphocytes % 34.4; MCH 20.3 pg (27.0-33.0); MCHC 28.7 % (32.0-36.0); Monocytes % 28.2; Neutrophils % 36.4; Nucleated RBC 2 %; RBC 4.62 10^6/uL (4.36-5.78); RDW 23.4 % (11.8-14.1)
[2020-11-09 09:38] LABS: ALT 21 U/L (16-63); AST 15 U/L (15-37); Albumin 3.2 g/dL (3.4-5.0); Alkaline Phosphatase 61 U/L (46-116); Anion Gap 5.6 mmol/L (3-11); BUN 29 mg/dL (7-18); Bilirubin, Total 1.7 mg/dL (0.2-1.0); CO2 26.4 mmol/L (21.0-32.0); CREATININE 1.62 mg/dL (0.70-1.30); Calcium 8.2 mg/dL (8.5-10.1); Chloride 106 mmol/L (98-107); Estimated GFR 41.86 (mL/min/1.73m2); Glucose 96 mg/dL (74-106); Potassium 3.9 mmol/L (3.5-5.1); Sodium 138 mmol/L (136-145); Total Protein 6.8 g/dL (6.4-8.2)
[2020-11-09 10:02] LABS: Platelet Count 171 10^3/uL (130-400); WBC 1.95 10^3/uL (4.4-10.8)
[2020-11-09 10:03] LABS: Absolute Neutrophil Count 0.71 10^3/uL (1.2-6.7); Anisocytosis 3+; Basophilic Stippling Present; Diff Comment Agrees w/ Instrument; Hypochromasia 3+; Microcytosis 3+
[2020-11-09 10:04] LABS: Poikilocytes 3+; Polychromasia Present
== END 2020-11-09 03:37 ==
PROVIDERS: PCP Family Medicine; Visit Provider Internal Medicine Hematology & Oncology
DX: D61.9 Aplastic anemia, unspecified (principal)
CPT/HCPCS: 36415; 80053; 85025

== ENCOUNTER 2020-12-07 03:58 | Outpatient (CLI) | payer MEDICARE, OTHER, SELFPAY ==
[2020-12-07 09:43] LABS: Abs Immature Grans 0.02 10^3/uL (0.0-0.06); Absolute Lymphocyte Count 0.67 10^3/uL (1.2-3.4); Absolute Monocyte Count 0.55 10^3/uL (0.1-0.8); HCT 34.7 % (40.0-50.0); HGB 10.2 g/dL (13.5-17.5); Immature Grans % 1.1; Lymphocytes % 35.3; MCH 20.6 pg (27.0-33.0); MCHC 29.4 % (32.0-36.0); MCV 70.2 fL (80-95); Monocytes % 28.9; Neutrophils % 34.7; Nucleated RBC 2 %; RBC 4.94 10^6/uL (4.36-5.78); RDW 23.9 % (11.8-14.1); RDW-SD 56.8 fL
[2020-12-07 10:16] LABS: Absolute Neutrophil Count 0.66 10^3/uL (1.2-6.7)
[2020-12-07 10:18] LABS: Anisocytosis 3+; Diff Comment Diff Reviewed; Hypochromasia 3+; Microcytosis 3+; Platelet Count 216 10^3/uL (130-400)
[2020-12-07 10:19] LABS: Poikilocytes 3+
[2020-12-07 10:43] LABS: ALT 24 U/L (16-63); AST 20 U/L (15-37); Albumin 3.4 g/dL (3.4-5.0); Alkaline Phosphatase 64 U/L (46-116); Anion Gap 6.6 mmol/L (3-11); BUN 29 mg/dL (7-18); CO2 26.4 mmol/L (21.0-32.0); CREATININE 1.87 mg/dL (0.70-1.30); Calcium 8.2 mg/dL (8.5-10.1); Chloride 104 mmol/L (98-107); Estimated GFR 35.47 (mL/min/1.73m2); FREE T4 1.22 ng/dL (0.76-1.46); Glucose 92 mg/dL (74-106); Sodium 137 mmol/L (136-145); TSH 1.74 uIU/mL (0.36-3.74); Total Protein 6.6 g/dL (6.4-8.2)
[2020-12-08 15:12] LABS: Adrenocorticotropic Hormone, P 38 pg/mL
[2020-12-09 04:43] LABS: Vitamin D 25 Total 57.6 ng/ml (30-100)
== END 2020-12-07 04:18 ==
PROVIDERS: PCP Family Medicine; Referring Provider Internal Medicine Endocrinology, Diabetes & Metabolism; Visit Provider Nurse Practitioner Family
DX: D61.9 Aplastic anemia, unspecified (principal); D69.6 Thrombocytopenia, unspecified; E27.40 Unspecified adrenocortical insufficiency; N18.32 Chronic kidney disease, stage 3b
CPT/HCPCS: 36415; 80053; 82306; 82024; 84244; 84439; 84443; 85025

== ENCOUNTER 2021-01-04 02:32 | Outpatient (CLI) | payer MEDICARE, OTHER, SELFPAY ==
[2021-01-04 09:59] LABS: Abs Immature Grans 0.03 10^3/uL (0.0-0.06); HCT 31.3 % (40.0-50.0); Immature Grans % 1.8; MCH 20.1 pg (27.0-33.0); MCHC 28.8 % (32.0-36.0); MCV 69.9 fL (80-95); Nucleated RBC 2 %; RBC 4.48 10^6/uL (4.36-5.78); RDW 23.4 % (11.8-14.1); RDW-SD 57.1 fL
[2021-01-04 10:10] LABS: ALT 16 U/L (16-63); AST 12 U/L (15-37); Albumin 3.2 g/dL (3.4-5.0); Alkaline Phosphatase 64 U/L (46-116); Anion Gap 7.3 mmol/L (3-11); BUN 28 mg/dL (7-18); Bilirubin, Total 1.5 mg/dL (0.2-1.0); CO2 26.7 mmol/L (21.0-32.0); CREATININE 1.6 mg/dL (0.70-1.30); Calcium 8.3 mg/dL (8.5-10.1); Chloride 104 mmol/L (98-107); Estimated GFR 42.46 (mL/min/1.73m2); Glucose 83 mg/dL (74-106); Potassium 4.4 mmol/L (3.5-5.1); Sodium 138 mmol/L (136-145); Total Protein 6.9 g/dL (6.4-8.2)
[2021-01-04 10:24] LABS: Anisocytosis 2+; Diff Comment Manual Differential; Hypochromasia 2+; Microcytosis 2+; Poikilocytes 3+
[2021-01-04 10:25] LABS: Absolute Basophil Count 0.03 10^3/uL (0.0-0.2); Absolute Lymphocyte Count 0.67 10^3/uL (1.2-3.4); Absolute Monocyte Count 0.37 10^3/uL (0.1-0.8); Bands % 1; Platelet Count 158 10^3/uL (130-400)
[2021-01-04 10:29] LABS: WBC 1.67 10^3/uL (4.4-10.8)
== END 2021-01-04 02:33 | disposition home or self-care (01) ==
LOC: LBO 02:32
PROVIDERS: PCP Family Medicine; Visit Provider Internal Medicine Hematology & Oncology
DX: D69.6 Thrombocytopenia, unspecified (principal); D61.9 Aplastic anemia, unspecified
CPT/HCPCS: 36415; 80053; 85025

== ENCOUNTER 2021-01-25 11:34 | Outpatient (CLI) | payer MEDICARE, OTHER, SELFPAY ==
[2021-01-25 16:17] LABS: Abs Immature Grans 0.02 10^3/uL (0.0-0.06); Absolute Lymphocyte Count 0.81 10^3/uL (1.2-3.4); Absolute Monocyte Count 0.38 10^3/uL (0.1-0.8); Absolute Neutrophil Count 0.64 10^3/uL (1.2-6.7); HCT 32.6 % (40.0-50.0); HGB 9.3 g/dL (13.5-17.5); Immature Grans % 1.1; Lymphocytes % 43.8; MCH 20.5 pg (27.0-33.0); MCHC 28.5 % (32.0-36.0); Monocytes % 20.5; Neutrophils % 34.6; Nucleated RBC 2 %; Platelet Count 132 10^3/uL (130-400); RBC 4.53 10^6/uL (4.36-5.78); RDW-SD 57.5 fL
[2021-01-25 16:25] LABS: ALT 17 U/L (16-63); AST 13 U/L (15-37); Albumin 3.1 g/dL (3.4-5.0); Alkaline Phosphatase 65 U/L (46-116); Anion Gap 8.1 mmol/L (3-11); BUN 31 mg/dL (7-18); Bilirubin, Total 1.2 mg/dL (0.2-1.0); CO2 26.9 mmol/L (21.0-32.0); CREATININE 1.5 mg/dL (0.70-1.30); Calcium 8.2 mg/dL (8.5-10.1); Chloride 103 mmol/L (98-107); Estimated GFR 45.75 (mL/min/1.73m2); Glucose 121 mg/dL (74-106); Potassium 4.3 mmol/L (3.5-5.1); Sodium 138 mmol/L (136-145); Total Protein 6.9 g/dL (6.4-8.2)
[2021-01-25 16:46] LABS: Diff Comment Diff Reviewed; WBC 1.85 10^3/uL (4.4-10.8)
[2021-01-25 16:47] LABS: Microcytosis 2+
== END 2021-01-25 11:35 | disposition home or self-care (01) ==
PROVIDERS: PCP Family Medicine; Visit Provider Nurse Practitioner Family
DX: D61.9 Aplastic anemia, unspecified (principal); D69.6 Thrombocytopenia, unspecified
CPT/HCPCS: 36415; 80053; 85025

== ENCOUNTER 2021-02-22 03:48 | Outpatient (CLI) | payer MEDICARE, OTHER, SELFPAY ==
[2021-02-22 13:34] LABS: HGB 8.9 g/dL (13.5-17.5); MCH 20.6 pg (27.0-33.0); MCHC 28.7 % (32.0-36.0); MCV 71.9 fL (80-95); RBC 4.31 10^6/uL (4.36-5.78); RDW 22.2 % (11.8-14.1); RDW-SD 55.4 fL
[2021-02-22 14:16] LABS: WBC 1.36 10^3/uL (4.4-10.8)
[2021-02-22 14:17] LABS: Absolute Basophil Count 0.01 10^3/uL (0.0-0.2); Absolute Lymphocyte Count 0.88 10^3/uL (1.2-3.4); Absolute Monocyte Count 0.12 10^3/uL (0.1-0.8); Atypical Lymphocytes % 2; Nucleated RBC 4 %
[2021-02-22 14:18] LABS: Diff Comment Manual Differential
[2021-02-22 14:19] LABS: Platelet Count 76 10^3/uL (130-400)
[2021-02-22 14:20] LABS: Anisocytosis 2+; Hypochromasia 1+; Macrocytosis 1+; Microcytosis 1+; Other Cells % 2; Promyelocytes % 1
[2021-02-22 14:21] LABS: Basophilic Stippling Present; Poikilocytes 1+; Polychromasia Present
[2021-02-22 15:34] LABS: ALT 17 U/L (16-63); AST 15 U/L (15-37); Albumin 3.2 g/dL (3.4-5.0); Alkaline Phosphatase 64 U/L (46-116); Anion Gap 8.2 mmol/L (3-11); BUN 30 mg/dL (7-18); Bilirubin, Total 1.5 mg/dL (0.2-1.0); CO2 25.8 mmol/L (21.0-32.0); CREATININE 1.8 mg/dL (0.70-1.30); Chloride 104 mmol/L (98-107); Estimated GFR 37.07 (mL/min/1.73m2); Glucose 102 mg/dL (74-106); Potassium 4.5 mmol/L (3.5-5.1); Sodium 138 mmol/L (136-145); Total Protein 6.5 g/dL (6.4-8.2)
== END 2021-02-22 03:49 | disposition home or self-care (01) ==
PROVIDERS: PCP Family Medicine; Visit Provider Nurse Practitioner Family
DX: D61.9 Aplastic anemia, unspecified (principal); D69.6 Thrombocytopenia, unspecified
CPT/HCPCS: 36415; 80053; 85025

== ENCOUNTER 2021-03-15 02:32 | Outpatient (CLI) | payer MEDICARE, OTHER, SELFPAY ==
[2021-03-15 12:45] LABS: Abs Immature Grans 0.04 10^3/uL (0.0-0.06); HCT 28.9 % (40.0-50.0); HGB 8.3 g/dL (13.5-17.5); MCH 20.9 pg (27.0-33.0); MCHC 28.7 % (32.0-36.0); MCV 72.8 fL (80-95); RBC 3.97 10^6/uL (4.36-5.78); RDW 22.5 % (11.8-14.1); RDW-SD 56.2 fL; WBC 2.04 10^3/uL (4.4-10.8)
[2021-03-15 12:57] LABS: ALT 18 U/L (16-63); AST 10 U/L (15-37); Albumin 2.9 g/dL (3.4-5.0); Alkaline Phosphatase 73 U/L (46-116); Anion Gap 7.8 mmol/L (3-11); BUN 30 mg/dL (7-18); Bilirubin, Total 1.4 mg/dL (0.2-1.0); CO2 25.2 mmol/L (21.0-32.0); CREATININE 1.6 mg/dL (0.70-1.30); Calcium 8.3 mg/dL (8.5-10.1); Chloride 105 mmol/L (98-107); Estimated GFR 42.46 (mL/min/1.73m2); Glucose 111 mg/dL (74-106); Potassium 4.7 mmol/L (3.5-5.1); Sodium 138 mmol/L (136-145); Total Protein 6.8 g/dL (6.4-8.2)
[2021-03-15 13:16] LABS: Absolute Basophil Count 0.06 10^3/uL (0.0-0.2); Absolute Eosinophil Count 0.02 10^3/uL (0.0-0.7); Absolute Lymphocyte Count 0.47 10^3/uL (1.2-3.4); Absolute Monocyte Count 0.22 10^3/uL (0.1-0.8); Absolute Neutrophil Count 1.16 10^3/uL (1.2-6.7); Bands % 2; Myelocytes % 1; Nucleated RBC 1 %; Promyelocytes % 2
[2021-03-15 13:17] LABS: Anisocytosis 2+; Diff Comment Manual Differential; Hypochromasia 2+; Other Cells % 2
[2021-03-15 13:18] LABS: Macrocytosis 1+; Microcytosis 2+; Poikilocytes 1+; Polychromasia Present
[2021-03-15 13:20] LABS: Platelet Count 25 10^3/uL (130-400)
== END 2021-03-15 02:33 | disposition home or self-care (01) ==
LOC: LBO 02:32
PROVIDERS: PCP Family Medicine; Visit Provider Internal Medicine Hematology & Oncology
DX: D61.9 Aplastic anemia, unspecified (principal); D69.6 Thrombocytopenia, unspecified
CPT/HCPCS: 36415; 80053; 85025

== ENCOUNTER 2021-03-22 03:30 | Outpatient (CLI) | payer MEDICARE, OTHER, SELFPAY ==
[2021-03-22 12:27] LABS: HCT 27.1 % (40.0-50.0); MCH 21.2 pg (27.0-33.0); MCHC 29.5 % (32.0-36.0); MCV 71.9 fL (80-95); Nucleated RBC 1 %; RBC 3.77 10^6/uL (4.36-5.78); RDW 21.7 % (11.8-14.1); RDW-SD 55.1 fL; WBC 2.09 10^3/uL (4.4-10.8)
[2021-03-22 12:41] LABS: ALT 21 U/L (16-63); AST 12 U/L (15-37); Albumin 2.7 g/dL (3.4-5.0); Alkaline Phosphatase 77 U/L (46-116); Anion Gap 8.8 mmol/L (3-11); BUN 32 mg/dL (7-18); Bilirubin, Total 2.1 mg/dL (0.2-1.0); CO2 26.2 mmol/L (21.0-32.0); CREATININE 1.7 mg/dL (0.70-1.30); Calcium 8.4 mg/dL (8.5-10.1); Chloride 100 mmol/L (98-107); Glucose 119 mg/dL (74-106); Potassium 4.4 mmol/L (3.5-5.1); Sodium 135 mmol/L (136-145); Total Protein 6.8 g/dL (6.4-8.2)
[2021-03-22 12:49] LABS: Platelet Count 26 10^3/uL (130-400)
[2021-03-22 12:50] LABS: Absolute Basophil Count 0.02 10^3/uL (0.0-0.2); Absolute Monocyte Count 0.06 10^3/uL (0.1-0.8); Absolute Neutrophil Count 0.69 10^3/uL (1.2-6.7); Bands % 4
[2021-03-22 12:51] LABS: Diff Comment Manual Differential; Metamyelocytes % 1
[2021-03-22 12:52] LABS: Anisocytosis 2+; Hypochromasia 1+; Microcytosis 1+
== END 2021-03-22 03:31 | disposition home or self-care (01) ==
LOC: LBO 03:30
PROVIDERS: Nurse Practitioner Family; PCP Family Medicine; Visit Provider Internal Medicine Hematology & Oncology
DX: D61.9 Aplastic anemia, unspecified (principal); D69.6 Thrombocytopenia, unspecified
CPT/HCPCS: 36415; 80053; 85025

== ENCOUNTER 2021-03-24 01:17 | Outpatient (CLI) | payer MEDICARE, OTHER, SELFPAY ==
--- NOTE | 2021-03-24 15:04 | DI.US_ITS ---
APPROVED REPORT EXAM: Comprehensive 2D, Doppler, and color-flow Echocardiogram Patient Location: Out-Patient Ramp Service Man: Shalini Walker RDCS (AE) Indications: Acute Coronary Syndrome, CABG Other Information Study Quality: Technically Difficult. Technically limited study due to . Conclusion Left Ventricle : The left ventricle is normal size. The left ventricular systolic function is normal. The left ventricular ejection fraction is within the normal range. There is normal left ventricular wall thickness. Regional wall motion abnormalities are noted though without contrast individual segme nts are poorly visualized. The left ventricular diastolic function is normal. LVEF is 55%. Right Ventricle : Right ventricle is grossly normal in size. Right ventricular systolic function is g rossly normal. Atria : The left atrium size is normal. The right atrium size is normal. Mitral Valve : Mild mitral annular calcification. Trace to mild mitral regurgitation. No evidence of mitral valve stenosis. Great Vessels : The aortic root is normal in size. The ascending aorta is normal in size. Aortic arch is normal in caliber. The IVC was not visualized. Compared to study at [facility] from 10/28/2019, patient no longer has basal wall motion abnormalities . Wall motion Left Ventricle The left ventricle is normal size. The left ventricular systolic function is normal. The left ventric ular ejection fraction is within the normal range. There is normal left ventricular wall thickness. R egional wall motion abnormalities are noted. The left ventricular diastolic function is normal. There is no ventricular septal defect visualized. LVEF is 55%. Right Ventricle Right ventricle is grossly normal in size. Right ventricular systolic function is grossly normal. Atria The left atrium size is normal. The right atrium size is normal. Aortic Valve The aortic valve is normal in structure. Aortic valve is trileaflet. There is no aortic valvular sten osis. No aortic regurgitation is present. Mitral Valve Mild mitral annular calcification. No evidence of mitral valve stenosis. Trace to mild mitral regurgi tation. Tricuspid Valve The tricuspid valve is normal in structure. There is no tricuspid valve stenosis. Mild tricuspid regu rgitation. Pulmonic Valve The pulmonary valve is normal in structure. There is no pulmonic valvular stenosis. Mild pulmonic reg urgitation. Great Vessels The aortic root is normal in size. The ascending aorta is normal in size. Aortic arch is normal in ca liber. The IVC was not visualized. Pericardium Technically very limited subcostal imaging due to patient body habitus. 2D Dimensions IVSD d PLAX 0.86 cm M: 0.6-1.2 LV Vol A2C d MOD 96.1 mL LVPW d PLAX 0.92 cm M: 0.6 - 1.2 LV Vol A4C d MOD 120.4 mL LVID d PLAX 4.53 cm M: 4.2 - 5.8 LA vol/ BSA A2C s A-L 21.9 mL/m2 LVDs 3.20 cm M: 2.5 - 4.0 LA vol/ BSA A4C s A-L 19.8 mL/m2 Ao Root d 3.14 cm M: 3.1 - 3.7 LA Vol/ BSA Biplane s A-L 22.2 mL/m2 RA Area A4C 16.66 cm2 LA Area A4C s MOD 16.57 cm2 RA Vol/ BSA A4C s A-L 21.0 mL/m2 LA Area A2C s MOD 16.37 cm2 Ao Asc Diam d 3.21 cm M: 2.6 - 3.4 LV EF A4C MOD 55.0 % LV EF Teichholz 55.5 % LV EF A2C MOD 55.7 % LVEF (Rizzo's) 54.36 % M: 52 - 72 LV EF Biplane MOD 54.4 % LV Volume 79.01 mL M: 62 - 150 SV 58.47 mL LV Volume Index 37.09 mL/m2 M: 34 - 74 SV Index 27.44 mL/m2 LV Vol Biplane MOD 107.6 mL FS 28.75 % M-Mode TAPSE 1.57 cm (M/F) >1.7 LV Diastology MV E' medial 0.056 (>0.07 m/s) E/A Ratio 0.7 LV E/e MED 8.25 (<14) MV E Vmax 0.46 (0.4-1.3 m/s) MV E' lateral 0.109 (>0.1 m/s) MV A Vmax 0.70 (0.4-1.3 m/s) LV E/e LAT 4.25 (<14) MV E/A Ratio 0.64 MV E/E' medial 8.30 MV E/E' lateral 4.26 Aortic Valve LVOT Area 3.15 cm2 AoV Area Vmax 3.17 cm2 LVOT Vmax 1.15 m/s AoV Area/ BSA (Vmax) 1.49 cm2/m2 LVOT Mean Dylon. 0.80 m/s LEDY Mean Dylon. 2.97 cm2 LVOT Peak Grad 5.3 mmHg LEDY Mean Dylon. Index 1.39 cm2/m2 LVOT Mean Grad 2.9 mmHg LVOT VTI 0.179 m LVOT Diam s 2.00 cm AoV Vmax 1.14 m/s Velocity Ratio 1.00 AoV Mean Dylon. 0.84 m/s AoV Peak Grad 5.2 mmHg LVOT SV 56.41 mL AoV Mean Grad 3.1 mmHg AoV VTI 0.189 m AoV Area VTI 2.99 cm2 AoV Area/ BSA (VTI) 1.40 cm/m2 Mitral Valve MV DT 347 (160-240 msec) MV PHT 101 msec MV Area PHT 2.19 cm2 Pulmonary Valve PV Vmax 1.25 (0.5-1.5 m/s) RVOT Peak Gr. 1.84 mmHg PV Peak Grad 6.3 mmHg RVOT Mean Gr. 0.85 mmHg PV Mean Grad 3.3 mmHg RVOT VTI 0.104 m PV VTI 0.263 m RVOT Vmax 0.68 m/s Tricuspid Valve TR Peak Grad 25.0 mmHg TR Vmax 2.50 m/s RA Pressure 3.00 mmHg RVSP (TR) 28.1 mmHg
== END 2021-03-24 01:37 ==
PROVIDERS: PCP Family Medicine; Visit Provider Internal Medicine Hematology & Oncology
DX: I24.9 Acute ischemic heart disease, unspecified (principal); Z95.1 Presence of aortocoronary bypass graft
CPT/HCPCS: 93306

== ENCOUNTER 2021-05-11 09:00 | Outpatient (RCR) | payer MEDICARE, OTHER, SELFPAY ==
[2021-04-15] MEDS: Normal Saline Flush 10 ML SYR IVP ×2 (08:30→15:18)
[2021-04-15 08:40] LABS: Abs Immature Grans 0.02 10^3/uL (0.0-0.06); HCT 27.5 % (40.0-50.0); MCH 25.5 pg (27.0-33.0); MCHC 32.7 % (32.0-36.0); MCV 77.9 fL (80-95); RBC 3.53 10^6/uL (4.36-5.78); RDW 20.8 % (11.8-14.1); RDW-SD 58.7 fL
[2021-04-15 09:15] LABS: Absolute Eosinophil Count 0.01 10^3/uL (0.0-0.7); Absolute Lymphocyte Count 0.42 10^3/uL (1.2-3.4); Absolute Monocyte Count 0.05 10^3/uL (0.1-0.8)
[2021-04-15 09:16] LABS: Anisocytosis 2+; Diff Comment Manual Differential; Hypochromasia 2+; Metamyelocytes % 1; Nucleated RBC 3 %
[2021-04-15 09:17] LABS: Poikilocytes 1+
[2021-04-15 09:20] LABS: Absolute Neutrophil Count 0.11 10^3/uL (1.2-6.7); Platelet Count 14 10^3/uL (130-400)
[2021-04-15 15:09] VITALS: BP 116/79; PULSE 80; RESP 20; TEMP 37.1; O2SAT 97
[2021-04-15 15:23] VITALS: BP 118/67; PULSE 80; RESP 20; TEMP 37.4; O2SAT 95
[2021-04-18] MEDS: Normal Saline Flush 10 ML SYR IVP ×3 (08:05→14:41)
[2021-04-18 08:26] LABS: Abs Immature Grans 0.01 10^3/uL (0.0-0.06); HCT 25.3 % (40.0-50.0); HGB 8.1 g/dL (13.5-17.5); MCH 25.2 pg (27.0-33.0); MCV 78.6 fL (80-95); RBC 3.22 10^6/uL (4.36-5.78); RDW 20.4 % (11.8-14.1); RDW-SD 58.4 fL
[2021-04-18 09:08] LABS: Platelet Count 16 10^3/uL (130-400)
[2021-04-18 09:09] LABS: Absolute Monocyte Count 0.01 10^3/uL (0.1-0.8); Nucleated RBC 5 %
[2021-04-18 09:10] LABS: Absolute Neutrophil Count 0.08 10^3/uL (1.2-6.7); Anisocytosis 2+; Diff Comment Manual Differential; Hypochromasia 2+; Microcytosis 2+; Poikilocytes 1+
[2021-04-18 13:51] VITALS: BP 109/59; PULSE 81; RESP 18; TEMP 37.5; O2SAT 97
[2021-04-18 14:02] VITALS: BP 109/59; PULSE 81; RESP 17; TEMP 37.5; O2SAT 97
[2021-04-18 14:20] VITALS: BP 106/51; PULSE 79; RESP 16; TEMP 37; O2SAT 96
[2021-04-21] VITALS (7 sets, daily range): BP systolic 106–123; BP diastolic 62–73; PULSE 66–73; RESP 16–20; TEMP 36–36.3; O2SAT 96–100
[2021-04-21 08:40] LABS: Abs Immature Grans 0.01 10^3/uL (0.0-0.06); HCT 21.5 % (40.0-50.0); HGB 7.1 g/dL (13.5-17.5); MCH 26.1 pg (27.0-33.0); RBC 2.72 10^6/uL (4.36-5.78); RDW-SD 57.8 fL
[2021-04-21 09:22] LABS: Platelet Count 6 10^3/uL (130-400); WBC 0.68 10^3/uL (4.4-10.8)
[2021-04-21 09:23] LABS: Absolute Basophil Count 0.03 10^3/uL (0.0-0.2); Absolute Lymphocyte Count 0.56 10^3/uL (1.2-3.4); Absolute Monocyte Count 0.01 10^3/uL (0.1-0.8); Absolute Neutrophil Count 0.08 10^3/uL (1.2-6.7); Anisocytosis 1+; Diff Comment Manual Differential; Hypochromasia 1+; Nucleated RBC 1 %
[2021-04-21] MEDS: Normal Saline Flush 10 ML SYR IVP (12:38)
[2021-04-25] VITALS (14 sets, daily range): BP systolic 110–129; BP diastolic 60–76; PULSE 72–83; RESP 16–18; TEMP 36.6–37.3; O2SAT 95–100
[2021-04-25] MEDS: Normal Saline Flush 10 ML SYR IVP (08:20)
[2021-04-25 08:47] LABS: Absolute Lymphocyte Count 0.36 10^3/uL (1.2-3.4); Absolute Monocyte Count 0.01 10^3/uL (0.1-0.8); MCH 25.5 pg (27.0-33.0); MCV 79.7 fL (80-95); RBC 2.51 10^6/uL (4.36-5.78); RDW 18.1 % (11.8-14.1); RDW-SD 52.8 fL
[2021-04-25 09:04] LABS: HGB 6.4 g/dL (13.5-17.5); Platelet Count 2 10^3/uL (130-400)
[2021-04-25 09:05] LABS: Absolute Neutrophil Count 0.03 10^3/uL (1.2-6.7)
[2021-04-25 09:29] LABS: Anisocytosis 1+; Diff Comment Manual Differential
[2021-04-25 15:35] LABS: Platelet Count 20 10^3/uL (130-400)
[2021-04-27] MEDS: Normal Saline Flush 10 ML SYR IVP ×2 (08:06→12:29)
[2021-04-27 08:25] LABS: Absolute Monocyte Count 0.01 10^3/uL (0.1-0.8); HCT 24.7 % (40.0-50.0); HGB 8.4 g/dL (13.5-17.5); MCH 27.1 pg (27.0-33.0); MCV 79.7 fL (80-95); Nucleated RBC 0 %; RDW 16.5 % (11.8-14.1); RDW-SD 47.8 fL
[2021-04-27 08:36] LABS: Platelet Count 11 10^3/uL (130-400); WBC 0.51 10^3/uL (4.4-10.8)
[2021-04-27 08:37] LABS: Absolute Neutrophil Count 0.02 10^3/uL (1.2-6.7)
[2021-04-27 08:51] LABS: Absolute Lymphocyte Count 0.48 10^3/uL (1.2-3.4); Atypical Lymphocytes % 4; Diff Comment Manual Differential; Microcytosis 1+
[2021-04-27 12:22] VITALS: BP 117/73; PULSE 75; RESP 16; TEMP 36.6; O2SAT 98
[2021-04-27 12:25] VITALS: BP 117/73; PULSE 74; RESP 16; TEMP 36.6; O2SAT 98
[2021-04-27 12:39] VITALS: BP 114/69; PULSE 75; RESP 16; TEMP 36.6; O2SAT 99
[2021-04-27 13:12] LABS: Platelet Count 26 10^3/uL (130-400)
[2021-04-29] MEDS: Normal Saline Flush 10 ML SYR IVP (08:13)
[2021-04-29 08:22] LABS: Absolute Lymphocyte Count 0.46 10^3/uL (1.2-3.4); Absolute Monocyte Count 0.01 10^3/uL (0.1-0.8); HGB 8.1 g/dL (13.5-17.5); Lymphocytes % 95.8; MCH 26.5 pg (27.0-33.0); MCHC 32.4 % (32.0-36.0); MCV 81.7 fL (80-95); Monocytes % 2.1; Neutrophils % 2.1; Nucleated RBC 0 %; RBC 3.06 10^6/uL (4.36-5.78); RDW 15.9 % (11.8-14.1); RDW-SD 47.4 fL
[2021-04-29 08:38] LABS: WBC 0.48 10^3/uL (4.4-10.8)
[2021-04-29 08:40] LABS: Absolute Neutrophil Count 0.01 10^3/uL (1.2-6.7); Platelet Count 13 10^3/uL (130-400)
[2021-04-29 08:41] LABS: Diff Comment Agrees w/ Instrument; Poikilocytes 1+
[2021-04-29 11:48] VITALS: BP 122/68; PULSE 90; RESP 19; TEMP 37; O2SAT 99
[2021-04-29 12:25] VITALS: BP 116/71; PULSE 76; RESP 16; TEMP 36.6; O2SAT 99
[2021-05-02] MEDS: Normal Saline Flush 10 ML SYR IVP (08:05)
[2021-05-02 08:22] LABS: Absolute Lymphocyte Count 0.44 10^3/uL (1.2-3.4); Absolute Monocyte Count 0.01 10^3/uL (0.1-0.8); HCT 22.4 % (40.0-50.0); HGB 7.2 g/dL (13.5-17.5); MCH 26.5 pg (27.0-33.0); MCHC 32.1 % (32.0-36.0); MCV 82.4 fL (80-95); MPV 9.8 fL (8.0-11.0); Nucleated RBC 0 %; RBC 2.72 10^6/uL (4.36-5.78); RDW 15.6 % (11.8-14.1); RDW-SD 45.8 fL
[2021-05-02 08:29] LABS: Platelet Count 11 10^3/uL (130-400); WBC 0.47 10^3/uL (4.4-10.8)
[2021-05-02 08:36] LABS: Absolute Neutrophil Count 0.02 10^3/uL (1.2-6.7); Diff Comment Manual Differential
[2021-05-02 08:37] LABS: RBC Morphology Normal
[2021-05-02 08:44] VITALS: BP 114/78; PULSE 75; RESP 20; TEMP 37; O2SAT 100
[2021-05-02 09:00] VITALS: BP 114/78; PULSE 75; RESP 20; TEMP 37; O2SAT 100
[2021-05-02 09:15] VITALS: BP 114/68; PULSE 73; RESP 20; TEMP 36.8; O2SAT 99
[2021-05-02 09:30] VITALS: BP 110/69; PULSE 75; RESP 20; TEMP 36.8; O2SAT 99
[2021-05-02 10:00] VITALS: BP 122/70; PULSE 67; RESP 20; TEMP 37; O2SAT 100
[2021-05-02 10:45] VITALS: BP 138/77; PULSE 85; RESP 20; TEMP 37; O2SAT 100
[2021-05-03] MEDS: Normal Saline Flush 10 ML SYR IVP ×2 (09:10→09:11)
[2021-05-03 09:11] VITALS: BP 112/65; PULSE 83; RESP 16; TEMP 36.7; O2SAT 97
[2021-05-03 09:21] LABS: ALT 25 U/L (16-63); AST 11 U/L (15-37); Albumin 2.1 g/dL (3.4-5.0); Alkaline Phosphatase 113 U/L (46-116); Anion Gap 10.9 mmol/L (3-11); BUN 21 mg/dL (7-18); Bilirubin, Total 0.8 mg/dL (0.2-1.0); CO2 25.1 mmol/L (21.0-32.0); CREATININE 1.3 mg/dL (0.70-1.30); Calcium 7.9 mg/dL (8.5-10.1); Chloride 102 mmol/L (98-107); Estimated GFR 53.96 (mL/min/1.73m2); Glucose 108 mg/dL (74-106); Sodium 138 mmol/L (136-145); Total Protein 6.3 g/dL (6.4-8.2)
[2021-05-03 09:50] VITALS: BP 119/64; PULSE 74; RESP 18; TEMP 36.6; O2SAT 98
[2021-05-03 10:05] VITALS: BP 137/63; PULSE 78; RESP 18; TEMP 36.6; O2SAT 98
[2021-05-03 10:51] LABS: Platelet Count 5 10^3/uL (130-400)
[2021-05-04] MEDS: Normal Saline Flush 10 ML SYR IVP ×2 (08:07→12:52)
[2021-05-04 08:13] LABS: Absolute Lymphocyte Count 0.44 10^3/uL (1.2-3.4); HCT 23.3 % (40.0-50.0); HGB 7.8 g/dL (13.5-17.5); Lymphocytes % 97.8; MCH 27.8 pg (27.0-33.0); MCHC 33.5 % (32.0-36.0); MCV 82.9 fL (80-95); Monocytes % 2.2; Nucleated RBC 0 %; RBC 2.81 10^6/uL (4.36-5.78); RDW 14.8 % (11.8-14.1); RDW-SD 44.9 fL
[2021-05-04 08:33] VITALS: BP 126/69; PULSE 80; RESP 20; TEMP 37.2; O2SAT 100
[2021-05-04 09:11] LABS: WBC 0.45 10^3/uL (4.4-10.8)
[2021-05-04 09:12] LABS: Platelet Count 3 10^3/uL (130-400)
[2021-05-04 09:13] LABS: Hypochromasia 2+
[2021-05-04 09:14] LABS: Diff Comment Agrees w/ Instrument
[2021-05-04 09:36] LABS: Absolute Monocyte Count 0.01 10^3/uL (0.1-0.8)
[2021-05-04 10:05] VITALS: BP 112/67; PULSE 78; RESP 16; TEMP 37.2; O2SAT 100
[2021-05-04 10:20] VITALS: BP 126/69; PULSE 80; RESP 20; TEMP 37.2; O2SAT 100
[2021-05-04 10:50] VITALS: BP 128/77; PULSE 74; RESP 16; TEMP 37.2; O2SAT 98
[2021-05-04 11:56] VITALS: BP 113/72; PULSE 73; RESP 16; TEMP 37.1; O2SAT 99
[2021-05-04 12:41] VITALS: BP 114/72; PULSE 74; RESP 16; TEMP 37; O2SAT 98
[2021-05-06] MEDS: Normal Saline Flush 10 ML SYR IVP (08:01)
[2021-05-06 08:17] LABS: HCT 25.2 % (40.0-50.0); HGB 8.6 g/dL (13.5-17.5); MCH 28.8 pg (27.0-33.0); MCHC 34.1 % (32.0-36.0); MCV 84.3 fL (80-95); Nucleated RBC 0 %; RBC 2.99 10^6/uL (4.36-5.78); RDW 14.6 % (11.8-14.1); RDW-SD 44.5 fL
[2021-05-06 08:53] LABS: WBC 0.46 10^3/uL (4.4-10.8)
[2021-05-06 08:54] LABS: Platelet Count 10 10^3/uL (130-400)
[2021-05-06 08:56] LABS: Absolute Lymphocyte Count 0.46 10^3/uL (1.2-3.4); Atypical Lymphocytes % 12
[2021-05-06 08:57] LABS: Diff Comment Manual Differential; RBC Morphology Normal
[2021-05-06 12:43] VITALS: BP 131/74; PULSE 83; RESP 20; TEMP 36.6; O2SAT 99
[2021-05-06 13:00] VITALS: BP 123/74; PULSE 71; RESP 20; TEMP 36.7; O2SAT 99
[2021-05-09] VITALS (7 sets, daily range): BP systolic 100–122; BP diastolic 66–76; PULSE 69–78; RESP 16; TEMP 36.6–36.9; O2SAT 99–100
[2021-05-09] MEDS: Normal Saline Flush 10 ML SYR IVP (08:09)
[2021-05-09 08:20] LABS: HCT 23.1 % (40.0-50.0); HGB 7.8 g/dL (13.5-17.5); MCH 28.2 pg (27.0-33.0); MCHC 33.8 % (32.0-36.0); MCV 83.4 fL (80-95); MPV 8.9 fL (8.0-11.0); Nucleated RBC 0 %; RBC 2.77 10^6/uL (4.36-5.78); RDW 14.4 % (11.8-14.1); RDW-SD 43.5 fL
[2021-05-09 08:44] LABS: Diff Comment Manual Differential
[2021-05-09 08:45] LABS: RBC Morphology Normal
[2021-05-09 08:50] LABS: Absolute Neutrophil Count 0.01 10^3/uL (1.2-6.7)
[2021-05-09 08:51] LABS: Platelet Count 3 10^3/uL (130-400); WBC 0.51 10^3/uL (4.4-10.8)
[2021-05-11] MEDS: Normal Saline Flush 10 ML SYR IVP ×2 (08:12→12:41)
[2021-05-11 09:41] VITALS: BP 101/64; PULSE 68; RESP 20; TEMP 36.9; O2SAT 100
[2021-05-11 09:59] VITALS: BP 114/64; PULSE 71; RESP 20; TEMP 36.5; O2SAT 100
[2021-05-11 10:26] VITALS: BP 110/71; PULSE 68; RESP 20; TEMP 36.8; O2SAT 99
[2021-05-11 11:21] VITALS: BP 114/73; PULSE 65; RESP 20; TEMP 36.8; O2SAT 99
[2021-05-11 12:18] VITALS: BP 118/76; PULSE 71; RESP 20; TEMP 36.7; O2SAT 100
[2021-05-11 12:38] VITALS: BP 114/75; PULSE 68; RESP 20; TEMP 36.8; O2SAT 100
== END 2021-05-11 23:59 | disposition home or self-care (01) ==
LOC: INF 09:00
PROVIDERS: Internal Medicine Hematology & Oncology; PCP Family Medicine; Visit Provider Nurse Practitioner Family
DX: D75.81 Myelofibrosis (principal); D46.Z Other myelodysplastic syndromes
CPT/HCPCS: 36430; 36591; 80053; 86850; 86900; 86901; 86920; 86945; P9073; 85025; 85049; 86644; P9016; P9035

== ENCOUNTER 2021-05-18 02:04 | Outpatient (RCR) | payer MEDICARE, OTHER, SELFPAY ==
[2021-05-11 08:21] LABS: Absolute Lymphocyte Count 0.41 10^3/uL (1.2-3.4); Absolute Monocyte Count 0.01 10^3/uL (0.1-0.8); HCT 23.5 % (40.0-50.0); HGB 7.9 g/dL (13.5-17.5); Lymphocytes % 97.6; MCH 28.6 pg (27.0-33.0); MCHC 33.6 % (32.0-36.0); MCV 85.1 fL (80-95); MPV 9.6 fL (8.0-11.0); Monocytes % 2.4; Nucleated RBC 0 %; RBC 2.76 10^6/uL (4.36-5.78); RDW 14.1 % (11.8-14.1); RDW-SD 43.5 fL
[2021-05-11 08:57] LABS: Diff Comment Agrees w/ Instrument; Microcytosis 1+
[2021-05-11 09:05] LABS: WBC 0.42 10^3/uL (4.4-10.8)
[2021-05-11 09:06] LABS: Platelet Count 5 10^3/uL (130-400)
[2021-05-12 00:27] VITALS: BP 114/75; PULSE 68; RESP 20; TEMP 36.8
[2021-05-13 08:11] LABS: Absolute Lymphocyte Count 0.43 10^3/uL (1.2-3.4); HCT 25.4 % (40.0-50.0); HGB 8.5 g/dL (13.5-17.5); MCH 28.6 pg (27.0-33.0); MCHC 33.5 % (32.0-36.0); MCV 85.5 fL (80-95); Nucleated RBC 0 %; RBC 2.97 10^6/uL (4.36-5.78); RDW 13.6 % (11.8-14.1); RDW-SD 41.6 fL
[2021-05-13 08:17] LABS: Platelet Count 2 10^3/uL (130-400); WBC 0.44 10^3/uL (4.4-10.8)
[2021-05-13 08:18] LABS: Absolute Neutrophil Count 0.01 10^3/uL (1.2-6.7)
[2021-05-13 08:27] LABS: Diff Comment Manual Differential; Microcytosis 1+
[2021-05-13] MEDS: Normal Saline Flush 10 ML SYR IVP (08:48)
[2021-05-13 12:33] VITALS: BP 120/74; PULSE 78; RESP 20; TEMP 36.7; O2SAT 100
[2021-05-13 12:46] VITALS: BP 106/67; PULSE 76; RESP 16; TEMP 36.7; O2SAT 98
[2021-05-16 08:15] LABS: Absolute Lymphocyte Count 0.39 10^3/uL (1.2-3.4); Absolute Monocyte Count 0.01 10^3/uL (0.1-0.8); HCT 22.9 % (40.0-50.0); HGB 7.7 g/dL (13.5-17.5); Lymphocytes % 95.1; MCH 28.8 pg (27.0-33.0); MCHC 33.6 % (32.0-36.0); MCV 85.8 fL (80-95); Monocytes % 2.4; Neutrophils % 2.5; Nucleated RBC 0 %; RBC 2.67 10^6/uL (4.36-5.78); RDW 13.2 % (11.8-14.1); RDW-SD 41.1 fL
[2021-05-16 08:49] LABS: WBC 0.41 10^3/uL (4.4-10.8)
[2021-05-16 08:51] LABS: Absolute Neutrophil Count 0.01 10^3/uL (1.2-6.7); Diff Comment Agrees w/ Instrument
[2021-05-16 08:52] LABS: Platelet Count 1 10^3/uL (130-400); RBC Morphology Normal
[2021-05-16 08:53] VITALS: BP 109/68; PULSE 73; RESP 16; TEMP 37.2; O2SAT 100
[2021-05-16 09:25] VITALS: BP 109/69; PULSE 78; RESP 17; TEMP 36.7; O2SAT 100
[2021-05-16 09:40] VITALS: BP 114/73; PULSE 74; RESP 17; TEMP 36.8; O2SAT 99
[2021-05-16 10:40] VITALS: BP 111/70; PULSE 73; RESP 17; TEMP 36.8; O2SAT 100
[2021-05-16 13:25] VITALS: BP 144/77; PULSE 87; RESP 16; TEMP 37.2; O2SAT 100
[2021-05-16] MEDS: Normal Saline Flush 10 ML SYR IVP (14:26)
== END 2021-05-23 23:59 | disposition home or self-care (01) ==
LOC: INF 02:04
PROVIDERS: PCP Family Medicine; Visit Provider Nurse Practitioner Family
DX: D75.81 Myelofibrosis (principal); D46.9 Myelodysplastic syndrome, unspecified
CPT/HCPCS: 36430; 36591; 86850; 86900; 86901; 86920; P9073; 85025; P9016; P9035

== ENCOUNTER 2021-05-18 07:05 | Observation (INO) | payer MEDICARE, OTHER, SELFPAY ==
[2021-05-18] VITALS (60 sets, daily range): BP systolic 95–120; BP diastolic 47–87; PULSE 83–98; RESP 12–22; TEMP 36.8–37.1; O2SAT 94–100
--- NOTE | 2021-05-18 07:00 | RT.EKG_ITS ---
APPROVED REPORT Exam: Resting ECG Reason for Exam: fall Patient Location: E HR:97 bpm ECG Measurements Heart Rate 97 AXIS [place] 146 P 24 QRSd 77 QRS 11 QT 301 T 88 QTc 382 Conclusion Sinus rhythm...normal P axis, V-rate 60- [address] dep laterally
--- NOTE | 2021-05-18 07:34 | ED.GENADUL_ITS ---
Discharge Plan Disposition Condition: Critical Discharge Details Chief Complaint: Trauma Admit Date/Time: 05/18/21 11:28 Admit Provider: Shelby Glez Attending Provider: Shelby Glez Primary Care Provider: Lizbeth Li V ED Provider: Wendy Andujar Discharge Instructions Activity:: Activity as Tolerated Equipment/Supplies:: hospital bed Diet:: As Tolerated Discharge Orders Discharge Orders: Discharge Order (Routine); Ordered 05/19/21 Ordered By: Jaye Hoyt Discharge Data Discharge Date/Time-TO BE ENTERED AT DEPARTURE: 05/18/21 12:56 Medical Decision Making <Alberto Andujar MD - Last Filed: 05/22/21 10:09> 89 --75-year-old male with multiple medical problems including history of adrenal insufficiency and myelodysplastic syndrome, frequently thrombocytopenic and requiring 3 times a week transfusion, here after syncopal episode with facial and head trauma. Consider acute intracranial traumatic hemorrhage. Plan to obtain CT of the head. Consider facial bone fracture. Plan to obtain CT of the face. Patient has no C-spine tenderness. I am concerned that he is thrombocytopenic given the amount of bruising he is exhibiting. Patient declining IV access and requesting access port. Plan to check platelet levels. Unclear etiology for syncope. Consider arrhythmia. Screening ECG was reviewed and interpreted by me: 97 bpm, subtle ST depressions noted laterally, please see report. Consider electrolyte abnormalities. <Wendy Andujar MD - Last Filed: 05/18/21 15:14> [facility] Fink was signed out to me at time of shift change with CT head, face, cervical spine and screening labs pending. Per radiology, CT is negative for acute process. Labs show hemoglobin 6.3, platelet 0, potassium 3.3, calcium 7.8, WBC 0.33. Unclear etiology of near syncope at this time, though possibly secondary to anemia. I discussed findings with the patient. He denies any new symptoms at this time. He is amenable to possible transfer. Given low platelet level significant head injury, [facility] transfer center contacted 08:55. I was called by [facility] and discussed patient with Dr. Palacios of trauma, who stated that transfer to [facility] is appropriate at this time, however patient should go through emergency department as opposed to trauma service given no apparent acute injury at this point. Awaiting callback from accepting ED physician at [facility]. [facility] ED requested heme-onc be contacted for transfer as outpatient would be a direct transfer to their service as opposed to an ED to ED transfer. [facility], including patient presentation results. He requested that patient be given 1 unit of platelets and 1 unit of PRBCs at this time. He initially requested that patient be admitted to our hospital for observation, however given possible spontaneous intracranial bleed in setting of trauma, it is more appropriate the patient be transferred to [facility]. Awaiting callback from [facility] for acceptance, as they state that since this is high and they may not have capacity at this time. 1 unit PRBCs and 1 unit platelets ordered. D-dimer returned and significantly elevated over 1999. Plan for CT chest. Will need to order x-ray to evaluate port for contrast administration. 10:05 patient accepted in transfer to emergency department by Dr. Ferrera of emergency medicine. It is unclear at this point whether patient needs irradiated PRBCs as he is currently receiving chemotherapy. Attempting to contact patient's oncologist for clarification. I discussed with patient with Dr. Marcial of oncology, who stated that patient does not need irradiated red blood cells or platelets. Dr Marcial also states that patient has expressed interest in minimal intervention in the past and questions whether there would be utility in transferring to [facility] given that patient would likely not want surgery or other major intervention. Upon reassessment, patient stated to me that he would not want surgical intervention if he were to be transferred to [facility]. Patient states that he is DNR/DNI. Patient also states that when he has received platelet/red blood cell transfusions recently he has been feeling very poorly for days after the transfusions. He feels that the transfusions are somewhat futile, and that his platelets drop almost immediately after being transfused. Patient states that he does not want to be transferred to [facility], and would like to remain at [facility]. Patient expresses interest in transitioning to hospice. I had a lengthy discussion with patient regarding risk of spontaneous bleeding and possibility of /permanent disability. Patient verbalizes understanding of these risks and refuses further intervention at this time, including transfusions of either platelets or PRBCs. Will hold platelet, PRBCs, and CT chest at this point. Hospice and palliative care contacted, awaiting callback. Because patient not established with hospice, the request medicine admission with hospice and palliative consult. Patient admitted to medicine. Medical Records Medical records reviewed: Yes I reviewed the patient's medical records. Imaging Data Radiologic Study: Attestation: I personally reviewed and interpreted this imaging study as eric torres: Radiologist's impression: Exam(s) CT HEAD FACIAL WO EXAM: CT HEAD cervical spine WO CLINICAL HISTORY: fall. head and face trauma. TECHNIQUE: Imaging Protocol: Axial computed tomography images with coronal and sagittal reformatted images were created and reviewed COMPARISON: No exams were available for comparison FINDINGS: CT Head: Ventricles and Extra axial spaces: Normal in size and morphology for the patient's age. Hemorrhage: None. Cerebral parenchyma: No acute territorial infarct. There are areas of decreased attenuation in the white matter most consistent with small vessel ischemic disease. Midline shift: None. Brainstem/Cerebellum: Normal. Calvarium: Normal. The nasal septum deviates to the right which appears chronic. The turbinates and ostiomeatal complexes are unremarkable. Visualized Paranasal sinuses/Mastoids: Clear. Soft Tissues: There is soft tissue swelling around the right periorbital region. The orbits appear grossly unremarkable. There is no evidence of an orbital fracture. The retro-orbital soft tissues are unremarkable. CT Cervical Spine: Bones: No acute fracture or subluxation. Mild degenerative changes are seen in the cervical spine. Soft Tissues: Unremarkable. Lung Apices: Clear. Thyroid gland: Unremarkable. IMPRESSION: 1. No acute intracranial process. 2. No acute fracture or subluxation in the cervical spine. 3. Right periorbital soft tissue swelling. 4. Results of this exam have been verbally communicated with provider. Lab Data Lab results reviewed: Yes I reviewed the patient's lab results. Labs: Laboratory Tests Range/Units 05/18/21 05/18/21 05/18/21 08:04 08:04 08:32 WBC (4.4-10.8) 10^3/uL 0.33 L* RBC (4.36-5.78) 10^6/uL 2.15 L Hgb (13.5-17.5) g/dL 6.3 L* Hct (40.0-50.0) % 18.0 L* D MCV (80-95) fL 83.7 MCH (27.0-33.0) pg 29.3 MCHC (32.0-36.0) % 35.0 RDW (11.8-14.1) % 13.3 Plt Count (130-400) 10^3/uL < 2 L* D MPV (8.0-11.0) fL Immature Gran % 0.0 Neutrophils % 0.0 Lymphocytes % 100.0 Monocytes % 0.0 Eosinophils % 0.0 Basophils % 0.0 Nucleated RBC % % 0 Absolute Neutrophils (1.2-6.7) 10^3/uL 0.00 L* Absolute Lymphocytes (1.2-3.4) 10^3/uL 0.33 L Absolute Monocytes (0.1-0.8) 10^3/uL 0.00 L Absolute Eosinophils (0.0-0.7) 10^3/uL 0.00 Absolute Basophils (0.0-0.2) 10^3/uL 0.00 RBC Morphology Normal D-Dimer (<500) ng/mlFEU 2855 H Sodium (136-145) mmol/L 136 Potassium (3.5-5.1) mmol/L 3.3 L Chloride (98-107) mmol/L 102 Carbon Dioxide (21.0-32.0) mmol/L 23.8 Anion Gap (3-11) mmol/L 10.2 BUN (7-18) mg/dL 24 H Creatinine (0.70-1.30) mg/dL 1.3 Estimated GFR/1.73 m2 (mL/min/1.73m2) 53.96 Glucose (74-106) mg/dL 119 H Calcium (8.5-10.1) mg/dL 7.8 L Magnesium (1.8-2.4) mg/dL 1.8 Total Bilirubin (0.2-1.0) mg/dL 1.1 H AST (15-37) U/L 12 L ALT (16-63) U/L 22 Alkaline Phosphatase (46-116) U/L 98 Troponin I (<0.06) ng/mL < 0.05 Total Protein (6.4-8.2) g/dL 5.6 L Albumin (3.4-5.0) g/dL 1.8 L COVID-19 Source Patient ABO/Rh Antibody Screen Crossmatch Range/Units 05/18/21 05/18/2105/18/21 09:29 09:34 12:20 WBC (4.4-10.8) 10^3/uL RBC (4.36-5.78) 10^6/uL Hgb (13.5-17.5) g/dL Hct (40.0-50.0) % MCV (80-95) fL MCH (27.0-33.0) pg MCHC (32.0-36.0) % RDW (11.8-14.1) % Plt Count (130-400) 10^3/uL MPV (8.0-11.0) fL Immature Gran % Neutrophils % Lymphocytes % Monocytes % Eosinophils % Basophils % Nucleated RBC % % Absolute Neutrophils (1.2-6.7) 10^3/uL Absolute Lymphocytes (1.2-3.4) 10^3/uL Absolute Monocytes (0.1-0.8) 10^3/uL Absolute Eosinophils (0.0-0.7) 10^3/uL Absolute Basophils (0.0-0.2) 10^3/uL RBC Morphology D-Dimer (<500) ng/mlFEU Sodium (136-145) mmol/L Potassium (3.5-5.1) mmol/L Chloride (98-107) mmol/L Carbon Dioxide (21.0-32.0) mmol/L Anion Gap (3-11) mmol/L BUN (7-18) mg/dL Creatinine (0.70-1.30) mg/dL Estimated GFR/1.73 m2 (mL/min/1.73m2) Glucose (74-106) mg/dL Calcium (8.5-10.1) mg/dL Magnesium (1.8-2.4) mg/dL Total Bilirubin (0.2-1.0) mg/dL AST (15-37) U/L ALT (16-63) U/L Alkaline Phosphatase (46-116) U/L Troponin I (<0.06) ng/mL Total Protein (6.4-8.2) g/dL Albumin (3.4-5.0) g/dL COVID-19 Source Nasal/Nares Patient ABO/Rh Cancelled O Positive Antibody Screen NEGATIVE Crossmatch See Detail HPI <Alberto Andujar MD - Last Filed: 05/22/21 10:09> General Mode of arrival: ambulatory . Date/Time Provider Initiated Documentation: 05/18/21 07:14 . Limitations to Documentation: no limitations . Information obtained by: patient and EMS . HPI Narrative: 75-year-old male with multiple medical problems including history of myelodysplastic syndrome, frequent thrombocytopenia requiring platelet transfusion 3 times a week, last transfused platelets on Sunday at which time he had a possible transfusion reaction versus neutropenic fever, also with history of adrenal insufficiency and on corticosteroids, presents after syncopal episode. Patient apparently felt dizzy and was assisted to the ground by relatives but did fall forward and hit his head on floor. This occurred just prior to arrival this morning. He has pain in his right side of his face is described as an ache and rated 6/10 intensity. He has no associated neck pain. No change in vision. He denies other significant injury. Related Data Home Medications Medication Instructions Recorded Confirmed hydrocortisone 5 mg tablet See Rx Instructions .ROUTE 08/19/20 05/18/21 .COMPLEX tab fludrocortisone 0.1 mg tablet 0.1 mg PO DAILY 09/14/20 05/18/21 acetaminophen [Tylenol] 325 mg PO PRN PRN 05/18/21 05/18/21 acyclovir 400 mg PO BID 05/18/21 05/18/21 cefpodoxime 200 mg PO BID 05/18/21 05/18/21 fluconazole 200 mg PO DAILY 05/18/21 05/18/21 metoprolol succinate 25 mg PO DAILY 05/18/21 05/18/21 morphine 5 mg/mL injection solution 0.5 - 2 mg SUBCUT Q1H #100 ml [facility] 05/21/21 hospice Previous Rx's Medication Instructions Recorded morphine 5 mg/mL injection solution 0.5 - 2 mg SUBCUT Q1H #100 ml [facility] 05/21/21 hospice Allergies Allergy/AdvReac Type Severity Reaction Status Date / Time cefadroxil [Cefadroxil] Allergy Intermediate Skin Rash Verified 05/18/21 07:18 pentamidine isethionate Allergy Mild Skin Rash Verified 05/18/21 07:18 General Stated Complaint: Trauma SOCRATES: 2 Review of Systems <Alberto Andujar MD - Last Filed: 05/22/21 10:09> All systems reviewed & are unremarkable except as noted in HPI and below Constitutional Constitutional: Reports fever(s) Cardiovascular Cardiovascular: Denies dyspnea Respiratory Respiratory: Denies dyspnea PFSH <Alberto Andujar MD - Last Filed: 05/22/21 10:09> Medical History (Updated 05/18/21 @ 18:35 by Helene Pablo MD) Adrenal insufficiency Aplastic anemia CAD (coronary artery disease) Encounter for hospice care discussion Frequent falls Generalized weakness Goals of care, counseling/discussion Low-grade chronic hyperbilirubinemia NSTEMI (non-ST elevated myocardial infarction) Palliative care patient Surgical History S/P CABG x 3 (~10/28/19) S/P hernia repair Family History (Updated 05/18/21 @ 18:27 by Helene Pablo MD) Daughter No problems noted. Social History (Updated 05/18/21 @ 18:29 by Helene Pablo MD) Smoking/Tobacco Use Status: Never Smoking risk assessment performed?: Yes Alcohol Intake: never Drug use: Never Substance use type: does not use Caregiver/Support person: Yes Household members: spouse Housing: house Number of Children: 2 Communication Needs: Corrective Lenses Current gender identity: male What is your relationship status?: How often do you talk on the phone with friends or family?: three or more times per week How often do you get together with friends or relatives?: three or more times per week Panel score (0-1 are the most socially isolated patients): 2 What type of physical activity do you participate in: none and sedentary lifestyle Special rigoberto needs: No Agree to transfusion: No (not after this admission; was receiving weekly +) Seatbelt use: always Working smoke detector in home: Yes Fire extinguisher in home: Yes Do you feel safe at home: Yes Do you feel safe in your relationship?: Yes Additional Social history: Lives with , Lucila. Daughter and her live nearby and help regularly. [facility] accepts that his cancer treatments are not longer helping. He wants to be home when he dies. He would like to be enrolled in hospice soon after he returns home. will be preparing their home for this. Exam <Alberto Andujar MD - Last Filed: 05/22/21 10:09> Const General: cooperative and no acute distress HENMT Head: contusion right frontal, no palpable skull fracture and periorbital ecchymosis (rt) General nose exam: external nose normal Face and sinus: no crepitus and no maxillary instability Mouth: moist mucous membranes Eyes Conjunctivae: normal conjunctivae Sclera: normal sclerae Neck Neck: trachea midline and supple Resp Auscultation: clear to auscultation bilaterally, no rales, no rhonchi and no wheezes Cardio Rate: regular rate and not tachycardic Rhythm: regular rhythm GI Palpation: soft, not firm, no guarding, no masses, not rigid and nontender Skin General skin exam: ecchymosis (Multiple areas of ecchymosis face and extremities) Neuro General: patient alert, patient awake, patient oriented x3 and tone normal Extrem Other: No bony tenderness Psych Appearance: grossly normal Mental Status: mental status grossly normal Course <Alberto Andujar MD - Last Filed: 05/22/21 10:09> Vital Signs Vital signs: Vital Signs Temperature 36.8 C 05/18/21 07:08 Pulse 96 H 05/18/21 07:08 Respiratory Rate 22 05/18/21 07:08 Blood Pressure 111/53 L 05/18/21 07:08 Pulse Oximetry 99 05/18/21 07:08 Temperature 36.8 C 05/18/21 07:08 Temperature Source Skin 05/18/21 07:08 Pulse 96 H 05/18/21 07:08 Respiratory Rate 22 05/18/21 07:08 Blood Pressure 111/53 L 05/18/21 07:08 Blood Pressure Position Sitting 05/18/21 07:08 Pulse Oximetry 99 05/18/21 07:08 Oxygen Delivery Method Room Air 05/18/21 07:08 Oxygen Flow Rate 0 05/18/21 07:08 Pain Level 6 05/18/21 07:08 Sign Out <Alberto Andujar MD - Last Filed: 05/22/21 10:09> Sign Out Data: Sign Out Comment: Follow-up CT head/face and labs. Reassess patient for disposition. Last updated by Alberto Andujar MD at 05/18/21 07:36
[2021-05-18 08:12] LABS: Absolute Lymphocyte Count 0.33 10^3/uL (1.2-3.4); MCH 29.3 pg (27.0-33.0); MCV 83.7 fL (80-95); Nucleated RBC 0 %; RBC 2.15 10^6/uL (4.36-5.78); RDW 13.3 % (11.8-14.1); RDW-SD 40.8 fL
--- NOTE | 2021-05-18 08:16 | DI.CT_ITS ---
Exam(s) CT HEAD FACIAL WO EXAM: CT HEAD cervical spine WO CLINICAL HISTORY: fall. head and face trauma. TECHNIQUE: Imaging Protocol: Axial computed tomography images with coronal and sagittal reformatted images were created and reviewed COMPARISON: No exams were available for comparison FINDINGS: CT Head: Ventricles and Extra axial spaces: Normal in size and morphology for the patient's age. Hemorrhage: None. Cerebral parenchyma: No acute territorial infarct. There are areas of decreased attenuation in the w giorgio matter most consistent with small vessel ischemic disease. Midline shift: None. Brainstem/Cerebellum: Normal. Calvarium: Normal. The nasal septum deviates to the right which appears chronic. The turbinates and ostiomeatal complexes are unremarkable. Visualized Paranasal sinuses/Mastoids: Clear. Soft Tissues: There is soft tissue swelling around the right periorbital region. The orbits appear g rossly unremarkable. There is no evidence of an orbital fracture. The retro-orbital soft tissues ar e unremarkable. CT Cervical Spine: Bones: No acute fracture or subluxation. Mild degenerative changes are seen in the cervical spine. Soft Tissues: Unremarkable. Lung Apices: Clear. Thyroid gland: Unremarkable. IMPRESSION: 1. No acute intracranial process. 2. No acute fracture or subluxation in the cervical spine. 3. Right periorbital soft tissue swelling. 4. Results of this exam have been verbally communicated with provider. RADIATION DOSE DELIVERED: 1,718.54mGy.cm Total DLP DATA REPOSITORY: All CT scans at this facility are submitted to the National Radiology Data Registry (NRDR) Dose Index Registry (DIR) with the [employer] ([employer]). RADIATION OPTIMIZATION: All CT scans at this facility use at least one of these dose optimization te chniques: automated exposure control; mA and/or kV adjustment per patient size (includes targeted exa ms where dose is matched to clinical indication); or iterative reconstruction.
[2021-05-18] MEDS: Normal Saline-STERILE FIELD 0.9% 10 ML SYR (08:20)
[2021-05-18 08:30] LABS: ALT 22 U/L (16-63); AST 12 U/L (15-37); Albumin 1.8 g/dL (3.4-5.0); Alkaline Phosphatase 98 U/L (46-116); Anion Gap 10.2 mmol/L (3-11); BUN 24 mg/dL (7-18); Bilirubin, Total 1.1 mg/dL (0.2-1.0); CO2 23.8 mmol/L (21.0-32.0); CREATININE 1.3 mg/dL (0.70-1.30); Calcium 7.8 mg/dL (8.5-10.1); Chloride 102 mmol/L (98-107); Estimated GFR 53.96 (mL/min/1.73m2); Glucose 119 mg/dL (74-106); Magnesium 1.8 mg/dL (1.8-2.4); Potassium 3.3 mmol/L (3.5-5.1); Sodium 136 mmol/L (136-145); Total Protein 5.6 g/dL (6.4-8.2); Troponin I < 0.05 ng/mL (<0.06)
[2021-05-18 08:37] LABS: HGB 6.3 g/dL (13.5-17.5); WBC 0.33 10^3/uL (4.4-10.8)
[2021-05-18 08:39] LABS: Platelet Count < 2 10^3/uL (130-400)
[2021-05-18 08:40] LABS: Diff Comment Agrees w/ Instrument; RBC Morphology Normal
[2021-05-18 09:14] LABS: D-Dimer 2855 ng/mlFEU (<500)
--- NOTE | 2021-05-18 09:30 | DI.RAD_ITS ---
Exam(s) XR PORTABLE CHEST AP EXAM: XR PORTABLE CHEST AP CLINICAL HISTORY: port evaluation TECHNIQUE: 2D digital imaging was performed. COMPARISON: CR,XR XR PORTABLE CHEST AP POST LINE from 05/07/2020 FINDINGS: MEDIASTINUM: Normal. HEART: Normal. PULMONARY VASCULATURE: Normal. LUNGS: Clear. PLEURAL SPACE: No pleural effusion or pneumothorax. BONE:Within normal limits for the patient's age. Findings of a median sternotomy. OTHER FINDINGS:The patient has indwelling central venous catheter. The tip of the catheter is in goo d position in the superior vena cava. IMPRESSION: No acute pulmonary findings. DATA REPOSITORY: RADIATION DOSE DELIVERED:
--- NOTE | 2021-05-18 11:33 | HPE_ITS ---
Date of service: 05/18/21 Time of Service: 11:33 Assessment and Plan Assessment and plan (1) Myelodysplasia (myelodysplastic syndrome): Status: Acute Assessment and plan: no further treatments being offered by hem/onc. patient wants to return home will be referred to observation on comfort care while discharge planning arranged. (2) Head injury due to trauma: Status: Acute Assessment and plan: CT scan negative. patient is comfort care. pain medication as needed. (3) Discharge planning issues: Status: Acute Assessment and plan: case management following plan to discharge home on hospice discussed with DR Glez History of Present Illness History of Present Illness Chief Complaint: fall with head injury Narrative: This is a 75-year-old male with complex medical history including history of adrenal insufficiency and myelodysplastic syndrome, frequently thrombocytopenic and requiring 3 times a week transfusion, who presented to the ED after a s yncopal episode with facial and head trauma. His work up in the ED showed a WBC 0.2, Platelets of less than 2, hemoglobin of 6.2. [place] [facility] [place] after discussion with his oncologist it was thought he would be better served at home with hospice care as there is nothing more they can offer him. He is agreeable to going home but hospice is unable to be arranged from the ED so he will stay here until plan in place. he has been accepted observation under hospitalist services for comfort care with case management referral for home discharge to hospice. Review of Systems All systems reviewed & are unremarkable except as noted in HPI and below [facility] Medical History (Updated 05/18/21 @ 11:41 by Jaye Hoyt NP) Adrenal insufficiency Aplastic anemia CAD (coronary artery disease) Low-grade chronic hyperbilirubinemia NSTEMI (non-ST elevated myocardial infarction) Surgical History S/P CABG x 3 (~10/28/19) S/P hernia repair Social History Smoking/Tobacco Use Status: Never Smoking risk assessment performed?: Yes Alcohol Intake: never Drug use: Never Substance use type: does not use What type of physical activity do you participate in: none Do you feel safe at home: Yes Do you feel safe in your relationship?: Yes Meds Allergies and Home Medications Allergies Allergy/AdvReac Type Severity Reaction Status Date / Time cefadroxil [Cefadroxil] Allergy Intermediate Skin Rash Verified 05/18/21 07:18 pentamidine isethionate Allergy Mild Skin Rash Verified 05/18/21 07:18 Home Medications Medication Instructions Recorded Confirmed Type hydrocortisone 5 mg tablet See Rx Instructions .ROUTE 08/19/20 05/18/21 History .COMPLEX tab fludrocortisone 0.1 mg tablet 0.1 mg PO DAILY 09/14/20 05/18/21 History acetaminophen [Tylenol] 325 mg PO PRN PRN 05/18/21 05/18/21 History acyclovir 400 mg PO BID 05/18/21 05/18/21 History cefpodoxime 200 mg PO BID 05/18/21 05/18/21 History fluconazole 200 mg PO DAILY 05/18/21 05/18/21 History metoprolol succinate 25 mg PO DAILY 05/18/21 05/18/21 History Exam Const General: cooperative, frail appearing and ill appearing acutely and chronically Nutritional Appearance: average body habitus Orientation: alert and awake [facility] Head: signs of trauma, contusion and hematoma Neck Neck: normal visual inspection Chest Chest: other (leaking and bruising over mediport site. ) Resp Effort & Inspection: normal respiratory effort Skin General skin exam: ecchymosis Rashes: no rashes Neuro General: patient alert, patient awake and patient oriented x3 Extrem General: other (bruising to right upper extremity) Results Labs Result diagrams: 05/18/21 08:04 05/18/21 08:04 Labs: Laboratory Results - last 24 hr 05/18/21 05/18/21 05/18/21 08:04 08:04 08:32 WBC 0.33 L* RBC 2.15 L Hgb 6.3 L* Hct 18.0 L* D MCV 83.7 MCH 29.3 MCHC 35.0 RDW 13.3 Plt Count < 2 L* D MPV Immature Gran % 0.0 Neutrophils % 0.0 Lymphocytes % 100.0 Monocytes % 0.0 Eosinophils % 0.0 Basophils % 0.0 Nucleated RBC % 0 Absolute Neutrophils 0.00 L* Absolute Lymphocytes 0.33 L Absolute Monocytes 0.00 L Absolute Eosinophils 0.00 Absolute Basophils 0.00 RBC Morphology Normal D-Dimer 2855 H Sodium 136 Potassium 3.3 L Chloride 102 Carbon Dioxide 23.8 Anion Gap 10.2 BUN 24 H Creatinine 1.3 Estimated GFR/1.73 m2 53.96 Glucose 119 H Calcium 7.8 L Magnesium 1.8 Total Bilirubin 1.1 H AST 12 L ALT 22 Alkaline Phosphatase 98 Troponin I < 0.05 Total Protein 5.6 L Albumin 1.8 L Patient ABO/Rh Antibody Screen Crossmatch 05/18/21 05/18/21 09:29 09:34 WBC RBC Hgb Hct MCV MCH MCHC RDW Plt Count MPV Immature Gran % Neutrophils % Lymphocytes % Monocytes % Eosinophils % Basophils % Nucleated RBC % Absolute Neutrophils Absolute Lymphocytes Absolute Monocytes Absolute Eosinophils Absolute Basophils RBC Morphology D-Dimer Sodium Potassium Chloride Carbon Dioxide Anion Gap BUN Creatinine Estimated GFR/1.73 m2 Glucose Calcium Magnesium Total Bilirubin AST ALT Alkaline Phosphatase Troponin I Total Protein Albumin Patient ABO/Rh Cancelled O Positive Antibody Screen NEGATIVE Crossmatch See Detail Last Vital Signs Temp 36.8 C 05/18/21 07:08 Pulse 89 05/18/21 11:01 Resp 19 05/18/21 11:01 BP 107/51 L 05/18/21 11:01 Pulse Ox 99 05/18/21 11:01
[2021-05-18 12:26] LABS: Source Nasal/Nares
--- NOTE | 2021-05-18 15:10 | CHAPLAIN ---
Duke was admitted to Med/Surg after being evaluated in the ED for a fall that caused a bruise and cut on his right eye. Duke is an oncology patient who has been getting transfusions for MDS. After consulting with his oncologist, Duke decided not to be transferred to [place] or to continue has transfusions as they weren't affective anymore. Duke will be discharged home tomorrow and admitted to hospice. Dr. Pablo spoke with Duke' , and then with Duke to explain the admission process for hospice. Duke gave short, one-word, agreeable answers. I explained my role and offered support and let him know that medical claims assistant is available 04/06, and that Jennifer Alfaro, the hospice rn will be available to him and his family as well. Dr. Pablo said that Duke' said he's exhausted, so hopefully he will rest well tonight, although he has just been given a lot of new, significant information about his end of life care.
[2021-05-18] MEDS: Acetaminophen 325 MG TAB PO (16:15)
[2021-05-18] MEDS: Hydrocortisone 10 MG TAB PO (16:15)
[2021-05-18 16:29] LABS: COVID-19 PCR Negative (Negative)
--- NOTE | 2021-05-18 18:13 | W.PALLCONSUL ---
Date of service: 05/18/21 Time of Service: 12:13 History of Present Illness History of Present Illness Chief Complaint: hospice discussion, MDS, fall, weakness Narrative: I spoke with Duke' , Peter, and with Duke, separately. Lucila was at home, and we spoke by phone. Lucila told me that Duke has had aplastic anemia for many years; recently, this transformed into myelodysplastic disorder. He has been followed by heme-onc specialist Dr Yue Marcial. Duke has been receiving weekly transfusions of platelets and every other transfusion, usually, of prbcs. Recently, he's not been able to maintain his H/H or his platelets. In the last month or so, he has also been running fevers that start a few hours after receiving his blood products. This has been hard on Duke and his . She's been giving him tylenol. He's felt absolutely wiped out. His blood pressure has dropped into the 80s. He's been taking higher doses or repeat doses of his hydrocortisone, which he's been prescribed for his andrenal insufficiency. Both Duke and his are aware that he is dying. They see that his treatments are not working and that going to the transfusion suite to get blood products exhausts him. He wants to be at home when he dies. He wants to go home as soon as he can. His needs to rearrange their downstairs and be available for Tati to drop off a hospital bed and oxygen. Duke was admitted to [facility] following a fall this am, resulting in a severe contusion of his right cheek. Dr Larson, surgeon, had been consulted by the ER due to the trauma; she wanted him to be able to go home on hospice as soon as this could be arranged. His asked for one more day to get organized. She does have help from her daughter and son-in-law who live near by. Consults Consult date: 05/18/21 Requesting physician: Jaye Hoyt Assessment and Plan Assessment and plan (1) Myelodysplasia (myelodysplastic syndrome): Status: Acute Assessment and plan: No longer responding to treatment. Advised time to transition to hospice by heme-onc. Will be admitted to hospice once he returns home tomorrow. (2) Adrenal insufficiency: Status: Acute Assessment and plan: Takes hydrocortisone as needed. Linked to his frequent falls and hypotension. (3) Head injury due to trauma: Status: Acute Assessment and plan: Fell this am. Seen by Dr Larson. Plan is to transition to hospice, focus on comfort. (4) Aplastic anemia: Status: Chronic Assessment and plan: Present for many years. Tansitioned to MDS within last year or so. (5) Goals of care, counseling/discussion: Status: Acute Assessment and plan: He wants to go home. He wants his family around him. He wants to at home. He would like to be kept comfortable. Recognizes that he likely will not be able to walk any more. Too high a fall risk. (6) Encounter for hospice care discussion: Status: Acute Assessment and plan: He elected to enroll his hospice. Lucila will be his caregiver. Daughter will be second in command. (7) Frequent falls: Status: Acute Assessment and plan: Multifactorial. Due to hypotension from adrenal insufficiency. Due to weakness from pancytopenia and fevers. (8) Generalized weakness: Status: Acute Assessment and plan: Severe. Suggest he remain bedbound for the nxt 48-72 hrs. If he feels better, can get up with assistance at that time. Suspect that he only has weeks left to live, at most, could be days. Discussed with Duke directly. (9) Palliative care patient: Status: Acute Review of Systems Constitutional Constitutional: Reports anorexia, Reports body ache(s), Reports daytime sleepiness, Reports fatigue, Reports fever(s), Reports frequent falls, Reports lethargy, Reports poor appetite, Reports weakness and Reports weight loss Eyes Eyes: Reports dry eyes and Reports requires corrective lenses ENT Ears, Nose, Mouth, and Throat: Reports dizziness, Reports dry mouth and Reports disequilibrium Comments: facial contusion, right cheek Cardiovascular Cardiovascular: Reports rapid heart rate, Reports dyspnea and Reports dyspnea on exertion Respiratory Respiratory: Reports dyspnea and Reports dyspnea on exertion Gastrointestinal Gastrointestinal: Reports constipation and Reports early satiety Genitourinary Genitourinary: Reports difficulty urinating Musculoskeletal Musculoskeletal: Reports abnormal gait, Reports myalgias and Reports muscle weakness Integumentary/Breasts Skin/Breast: Reports unusual bruising Neurologic Neurologic: Reports abnormal gait, Reports dizziness, Reports frequent falls, Reports disequilibrium and Reports weakness Psychiatric Psychiatric: Reports difficulty concentrating and Reports anhedonia Endocrine Endocrine: Reports fatigue Hematologic/Lymphatic Hematologic/Lymphatic: Reports easy bleeding and Reports easy bruising [facility] Medical History (Updated 05/18/21 @ 18:35 by Helene Pablo MD) Adrenal insufficiency Aplastic anemia CAD (coronary artery disease) Encounter for hospice care discussion Frequent falls Generalized weakness Goals of care, counseling/discussion Low-grade chronic hyperbilirubinemia NSTEMI (non-ST elevated myocardial infarction) Palliative care patient Surgical History S/P CABG x 3 (~10/28/19) S/P hernia repair Family History (Updated 05/18/21 @ 18:27 by Helene Pablo MD) Daughter No problems noted. Social History (Updated 05/18/21 @ 18:29 by Helene Pablo MD) Smoking/Tobacco Use Status: Never Smoking risk assessment performed?: Yes Alcohol Intake: never Drug use: Never Substance use type: does not use Caregiver/Support person: Yes Household members: spouse Housing: house Number of Children: 2 Communication Needs: Corrective Lenses Current gender identity: male What is your relationship status?: How often do you talk on the phone with friends or family?: three or more times per week How often do you get together with friends or relatives?: three or more times per week Panel score (0-1 are the most socially isolated patients): 2 What type of physical activity do you participate in: none and sedentary lifestyle Special rigoberto needs: No Agree to transfusion: No (not after this admission; was receiving weekly +) Seatbelt use: always Working smoke detector in home: Yes Fire extinguisher in home: Yes Do you feel safe at home: Yes Do you feel safe in your relationship?: Yes Additional Social history: Lives with , Lucila. Daughter and her live nearby and help regularly. Duke accepts that his cancer treatments are not longer helping. He wants to be home when he dies. He would like to be enrolled in hospice soon after he returns home. will be preparing their home for this. Exam Const General: cooperative, frail appearing and ill appearing Nutritional Appearance: average body habitus Orientation: alert, awake and oriented x3 HENMT Head: contusion and hematoma (right cheek) Ears: hearing grossly normal bilaterally General nose exam: external nose normal Face and sinus: abnormal facial exam, face asymmetric, abrasion, ecchymosis and edema (from his trauma, right upper face/cheek/amish) Mouth: oral mucosae normal Eyes Conjunctivae: conjunctivae normal Sclera: sclerae normal Neck Neck: no lymphadenopathy and nontender Resp Effort & Inspection: normal respiratory effort and able to speak in complete sentences Auscultation: clear to auscultation bilaterally Cardio Rate: regular rate Rhythm: regular rhythm Heart Sounds: S1 normal and S2 normal GI Inspection: normal to inspection Palpation: soft Auscultation: normal bowel sounds Skin General skin exam: ecchymosis Trauma: abrasion and laceration Hair: normal Neuro General: patient alert, patient awake, patient oriented x3 and unable to assess gait Cognition: normal cognition Speech: speech normal Psych Appearance: grossly normal Mental Status: mental status grossly normal Speech and Movement: speech and movement normal Mood: congruent mood Affect: sad Attitude: cooperative Thought Content: normal Insight: insight good Judgment: judgment good Results Last Vital Signs Temp 98.8 F 05/18/21 13:12 Pulse 88 05/18/21 13:12 Resp 18 05/18/21 13:12 BP 95/59 L 05/18/21 13:12 Pulse Ox 97 05/18/21 13:12 Labs Result diagrams: 05/18/21 08:04 05/18/21 08:04 Labs: Laboratory Results - last 24 hr 05/18/21 05/18/21 05/18/21 08:04 08:04 08:32 WBC 0.33 L* RBC 2.15 L Hgb 6.3 L* Hct 18.0 L* D MCV 83.7 MCH 29.3 MCHC 35.0 RDW 13.3 Plt Count < 2 L* D MPV Immature Gran % 0.0 Neutrophils % 0.0 Lymphocytes % 100.0 Monocytes % 0.0 Eosinophils % 0.0 Basophils % 0.0 Nucleated RBC % 0 Absolute Neutrophils 0.00 L* Absolute Lymphocytes 0.33 L Absolute Monocytes 0.00 L Absolute Eosinophils 0.00 Absolute Basophils 0.00 RBC Morphology Normal D-Dimer 2855 H Sodium 136 Potassium 3.3 L Chloride 102 Carbon Dioxide 23.8 Anion Gap 10.2 BUN 24 H Creatinine 1.3 Estimated GFR/1.73 m2 53.96 Glucose 119 H Calcium 7.8 L Magnesium 1.8 Total Bilirubin 1.1 H AST 12 L ALT 22 Alkaline Phosphatase 98 Troponin I < 0.05 Total Protein 5.6 L Albumin 1.8 L COVID-19 Source SARS-CoV-2 (PCR) Patient ABO/Rh Antibody Screen Crossmatch 05/18/21 05/18/21 05/18/21 09:29 09:34 12:20 WBC RBC Hgb Hct MCV MCH MCHC RDW Plt Count MPV Immature Gran % Neutrophils % Lymphocytes % Monocytes % Eosinophils % Basophils % Nucleated RBC % Absolute Neutrophils Absolute Lymphocytes Absolute Monocytes Absolute Eosinophils Absolute Basophils RBC Morphology D-Dimer Sodium Potassium Chloride Carbon Dioxide Anion Gap BUN Creatinine Estimated GFR/1.73 m2 Glucose Calcium Magnesium Total Bilirubin AST ALT Alkaline Phosphatase Troponin I Total Protein Albumin COVID-19 Source Nasal/Nares SARS-CoV-2 (PCR) Negative Patient ABO/Rh Cancelled O Positive Antibody Screen NEGATIVE Crossmatch See Detail
[2021-05-19] MEDS: Fludrocortisone 0.1 MG TAB PO (07:15)
[2021-05-19] MEDS: Hydrocortisone 10 MG TAB 15 MG PO (07:17)
--- NOTE | 2021-05-19 10:28 | CMPROGNOTE_ITS ---
- If Service Date Differs Date of service: 05/19/21 Time of Service: 10:28 Care Management Progress Note Duke was sitting up in bed when CM met with him. He was cooperative and agreeable to conversation. Duke is being discharged home on hospice this afternoon. Duke shared that he has no energy. He described a conversation with his cardiac surgeon where the surgeon told him that he had no reserves and recovery would be slow. He eventually recovered from that surgery but once again feels he has no reserves as his blood counts are so low. Hospice has ordered a hospital bed, oxygen and table for him. CM confirmed that they have been delivered. He will be transported home via ambulance coordinated by CM through [employer].
--- NOTE | 2021-05-19 11:42 | W.PM.DS.N ---
Date of service: 05/19/21 Time of Service: 11:42 DS: Diagnosis Discharge Diagnosis (1) Myelodysplasia (myelodysplastic syndrome): Status: Acute (2) Adrenal insufficiency: Status: Acute (3) Head injury due to trauma: Status: Acute (4) Aplastic anemia: Status: Chronic (5) Goals of care, counseling/discussion: Status: Acute (6) Encounter for hospice care discussion: Status: Acute (7) Frequent falls: Status: Acute (8) Generalized weakness: Status: Acute (9) Palliative care patient: Status: Acute Discharge Plan Disposition Patient Disposition: HOME W/HOME HEALTH SERVICE Condition: Critical Discharge Details Reason For Visit: Head Injury, Pancytopenia Admit Date/Time: 05/18/21 11:28 Admit Provider: Shelby Glez Attending Provider: Shelby Glez Primary Care Provider: Lizbeth Li V Hospital Course Hospital Course: This is a 75-year-old male with complex medical history including history of adrenal insufficiency and myelodysplastic syndrome, frequently thrombocytopenic and requiring 3 times a week transfusion, who presented to the ED after a syncopal episode with facial and head trauma. His work up in the ED showed a WBC 0.2, Platelets of less than 2, hemoglobin of 6.2. He was initially accepted in transfer to [facility] [place] but after discussion with his oncologist it was thought he would be better served at home with hospice care as there is nothing more they can offer him. he was referred to observation under hospitalist services for comfort care with case management referral for home discharge to hospice. overnight he rested comfortably, pain controlled. Dr Pablo was consulted and arrangements for needed equipment and preparation for home discharge where made. He is being transported by ambulance to home for hospice care. all medications and care will be directed by hospice team. discharge discussed with Dr Glez Home Meds and New Rx's Prescriptions: No Action fludrocortisone 0.1 mg tablet 0.1 mg PO DAILY RF: 0 hydrocortisone 5 mg tablet See Rx Instructions .ROUTE .COMPLEX RF: 0 acetaminophen [Tylenol] 325 mg Tablet 325 mg PO PRN PRNRF: 0 cefpodoxime 100 mg tablet 200 mg PO BID RF: 0 metoprolol succinate 50 mg tablet extended release 24 hr 25 mg PO DAILY RF: 0 fluconazole 200 mg tablet 200 mg PO DAILY RF: 0 acyclovir 400 mg tablet 400 mg PO BID RF: 0 Discharge Instructions Instructions: Hospice Care (GEN) Additional Instructions: all care and medication to be directed by hospice team Stand Alone Forms: Nursing Discharge Form Activity:: Activity as Tolerated Equipment/Supplies:: hospital bed Diet:: As Tolerated Discharge Orders Discharge Orders: Discharge Order (Routine); Ordered 05/19/21 Ordered By: Jaye Hoyt Discharge Data Discharge Date/Time-TO BE ENTERED AT DEPARTURE: 05/19/21 13:03 DS: Summary Time Spent with Patient providing and/or coordinating discharge services: Less than 30 minutes Status at Discharge Functional status at discharge: bed bound Overall status at discharge: patient is not back to baseline Mental Status: mental status grossly normal Speech and Movement: speech and movement normal Mood: congruent mood Affect: normal affect Exam Const General: cooperative, frail appearing and ill appearing acutely and chronically Nutritional Appearance: average body habitus Orientation: alert and awake HENMT Head: signs of trauma, contusion and hematoma Neck Neck: normal visual inspection Chest Chest: other (bruising) Resp Effort & Inspection: normal respiratory effort Skin General skin exam: ecchymosis Rashes: no rashes Neuro General: patient alert, patient awake and patient oriented x3 Extrem General: other (bruising to right upper extremity) Psych Mental Status: mental status grossly normal Speech and Movement: speech and movement normal Mood: congruent mood Affect: normal affect DS: Data Vitals/I&O Vitals and I&O: Vital Signs Temperature 37.1 C 05/18/21 13:12 Temperature Source Skin 05/18/21 07:08 Pulse 88 05/18/21 13:12 Pulse Rhythm Regular 05/18/21 13:12 Pulse 89 05/18/21 12:40 Respiratory Rate 18 05/18/21 13:12 Respiratory Effort Non-Labored 05/18/21 13:12 Respiratory Depth Normal 05/18/21 13:12 Respiratory Pattern Normal 05/18/21 13:12 Blood Pressure 95/59 L 05/18/21 13:12 Blood Pressure Mean 62 05/18/21 12:31 Blood Pressure Position Sitting 05/18/21 07:08 Pulse Oximetry 97 05/18/21 13:12 Oxygen Delivery Method Room Air 05/18/21 13:12 Oxygen Flow Rate 0 05/18/21 13:12 Pain Level 5 05/18/21 16:15 Intake & Output 0705/18/21 05/19/21 11:59 23:59 11:59 Intake Total 20 / 520 500 / 520 450 / 450 Output Total 400 / 400 550 / 550 Balance 20 / 120 100 / 120 -100 / -100 Weight 90.718 kg 90.9 kg Intake: IV 20 Oral 500 / 500 450 / 450 Output: Urine 400 / 400 550 / 550 Other: Urine Color Dark Kiki Yellow Urine Appearance Clear Clear Urine Odor Strong Normal Stool Size Large Stool Characteristics Formed Voiding Methods Urinal Urinal Data Completed and Pending Labs on day of discharge: Labs from last 24 hours 05/18/21 05/18/21 12:20 09:34 COVID-19 Source Nasal/Nares SARS-CoV-2 (PCR) Negative Crossmatch See Detail [facility] Medical History (Updated 05/18/21 @ 18:35 by Helene Pablo MD) Adrenal insufficiency Aplastic anemia CAD (coronary artery disease) Encounter for hospice care discussion Frequent falls Generalized weakness Goals of care, counseling/discussion Low-grade chronic hyperbilirubinemia NSTEMI (non-ST elevated myocardial infarction) Palliative care patient Surgical History S/P CABG x 3 (~10/28/19) S/P hernia repair Family History (Updated 05/18/21 @ 18:27 by Helene Pablo MD) Daughter No problems noted. Social History (Updated 05/18/21 @ 18:29 by Helene Pablo MD) Smoking/Tobacco Use Status: Never Smoking risk assessment performed?: Yes Alcohol Intake: never Drug use: Never Substance use type: does not use Caregiver/Support person: Yes Household members: spouse Housing: house Number of Children: 2 Communication Needs: Corrective Lenses Current gender identity: male What is your relationship status?: How often do you talk on the phone with friends or family?: three or more times per week How often do you get together with friends or relatives?: three or more times per week Panel score (0-1 are the most socially isolated patients): 2 What type of physical activity do you participate in: none and sedentary lifestyle Special rigoberto needs: No Agree to transfusion: No (not after this admission; was receiving weekly +) Seatbelt use: always Working smoke detector in home: Yes Fire extinguisher in home: Yes Do you feel safe at home: Yes Do you feel safe in your relationship?: Yes Additional Social history: Lives with , Lucila. Daughter and her live nearby and help regularly. Duke accepts that his cancer treatments are not longer helping. He wants to be home when he dies. He would like to be enrolled in hospice soon after he returns home. will be preparing their home for this.
== END 2021-05-19 13:03 | disposition home health service (06) ==
LOC: ER 08:17 → MS 13:29
PROVIDERS: Student in an Organized Health Care Education/Training Program; Admitting Provider Internal Medicine; Emergency Provider Student in an Organized Health Care Education/Training Program; PCP Family Medicine; Visit Provider Internal Medicine
DX: R55 Syncope and collapse (principal); S00.03XA Contusion of scalp, initial encounter; Z66 Do not resuscitate; W19.XXXA Unspecified fall, initial encounter; D46.9 Myelodysplastic syndrome, unspecified; D69.59 Other secondary thrombocytopenia; Z51.5 Encounter for palliative care; E27.40 Unspecified adrenocortical insufficiency; D61.9 Aplastic anemia, unspecified; I25.10 Atherosclerotic heart disease of native coronary artery without angina pectoris; I25.2 Old myocardial infarction; Z95.1 Presence of aortocoronary bypass graft; E80.6 Other disorders of bilirubin metabolism
CPT/HCPCS: 36415; 36416; 80053; 82962; 86850; 86900; 86901; 86920; 87635; 93005; 99285; 70450; 70486; 71045; 72125; 83735; 84484; 85025; 85379; 93010; 99217; 99219; G0378